=== PATIENT | male | born 1955 | race Caucasian/White ===

== ENCOUNTER 2017-03-26 14:27 | Inpatient (IN) ==
--- NOTE | 2017-03-26 14:31 | Emergency Department Note ---
Disposition Clinical Impression: Swelling of right lower extremity, Painful legs and moving toes of right foot, Arterial aneurysm Disposition: Admitted As Inpatient Condition: Fair General Adult HPI - General Chief complaint: ED Extremity Problem,Nontraumatic Stated complaint: DVT RLE Time Seen by Provider: 03/26/17 14:29 Nursing Notes Reviewed: Yes Vital Signs Reviewed: Yes - Related Data Home Medications Medication Instructions Recorded Confirmed Amlodipine Besylate 10 mg PO HS 08/15/15 03/26/17 Melatonin [Melatin] 9 mg PO HS 08/15/15 03/26/17 hydrOXYzine HCl [Hydroxyzine HCl] 50 mg PO TID PRN 08/15/15 03/26/17 Albuterol Sulfate [Albuterol 2 puff IH Q4H PRN 03/26/17 03/26/17 Inhaler] Benzocaine/Menthol [Sore Throat 1 each MM Q4H PRN 03/26/17 03/26/17 Lozenge] Bupropion HCl [Wellbutrin Xl] 300 mg PO DAILY 03/26/17 03/26/17 Cetirizine HCl [Zyrtec] 10 mg PO DAILY 03/26/17 03/26/17 EPINEPHrine [Epipen] 0.3 mg IM ONCE PRN 03/26/17 03/26/17 Enoxaparin [Lovenox] 60 mg SQ AD 03/26/17 03/26/17 Fluticasone Propionate Nasal 100 mcg NS HS 03/26/17 03/26/17 [Flonase] Loperamide [Imodium] 4 mg PO BID PRN 03/26/17 03/26/17 Methyl Salicylate/Menthol [Muscle 1 appl TP BID PRN 03/26/17 03/26/17 Rub Cream] Multivitamin [Multi-Day Vitamins] 1 tab PO DAILY 03/26/17 03/26/17 Naltrexone Microspheres [Vivitrol] 380 mg IM QMONTH 03/26/17 03/26/17 Nicotine Polacrilex [Nicotine 4 mg BC Q2H PRN 03/26/17 03/26/17 Lozenge] Pregabalin [Lyrica] 100 mg PO BID 03/26/17 03/26/17 Sildenafil Citrate [Viagra] 50 mg PO AD PRN 03/26/17 03/26/17 Allergies Allergy/AdvReac Type Severity Reaction Status Date / Time bee venom protein (honey bee) Allergy See Verified 03/26/17 16:38 Comments tramadol Allergy Hives Verified 08/15/15 00:24 Past Medical History - Past Medical History Medical history: Reports: COPD, hypertension, myocardial infarction - Social History Smoking Status: Current every day smoker Smokeless Tobacco Status: No Alcohol use: Reports: occasionally Drug use: Reports: none Course Vital Signs Temperature 98.5 F 03/26/17 15:53 Pulse Rate 78 03/26/17 15:53 Respiratory Rate 16 03/26/17 15:53 Blood Pressure 121/84 03/26/17 15:53 O2 Sat by Pulse Oximetry 90 03/26/17 15:53 Temperature 98.5 F 03/26/17 15:53 Pulse Rate 78 03/26/17 15:53 Respiratory Rate 18 03/26/17 17:17 Blood Pressure 130/81 03/26/17 17:17 O2 Sat by Pulse Oximetry 90 03/26/17 15:53 Oxygen Delivery Oxygen Delivery Room Air Medical Decision Making - MDM Narrative Medical decision making narrative: I examined this patient and my medical decision-making was reviewed with the Resident Physician. I agree with the documented findings, disposition and treatment plan as described except to the extent set forth below. Patient arrived from the [facility] by EMS, on arrival was seen by myself and Dr. Chiang, I agree with his evaluation and management plan, supravascular the patient's stay. Patient apparently was worked up there for DVT which was negative but his NORMA was significantly decreased on the right side versus the left leg thought he had arterial occlusion. He does have a long history of smoking and still smokes this point so probably does have a history of peripheral vascular disease. Relative to his chart see what workup has been done CV needs any blood work in and speak with vascular here. He denies any pain at this time. 1600 hrs.: Spoke with Dr. Chopra is on for vascular he is coming to see the patient. Labs are still pending at this point. 1615 hrs.: Surgery is seeing the patient in ER, agree with the heparin order and they ordered a CT with runoff of his lower extremity. Admit the patient to their service. Patient is in agreement with plan. - Lab Data Result diagrams: 03/26/17 15:27 03/26/17 15:27 Lab Results 03/26/17 03/26/17 03/26/17 Range/Units 15:27 15:27 15:27 WBC 8.4 (4.3-11.1) K/mcL RBC 3.98 L (4.19-5.50) M/mcL Hgb 11.9 L (12.9-16.9) g/dL Hct 34.9 L (37.5-50.1) % MCV 87.7 (83.0-100.0) fL MCH 29.9 (28.0-33.3) pg MCHC 34.1 (31.6-35.5) g/dL RDW 14.3 (11.5-14.5) % Plt Count 218 (140-400) K/mcL MPV 9.1 L (9.4-12.4) fL Immature Gran % 0.2 (0-4) % Seg Neutrophils % 67.1 % Lymphocytes % 18.1 % Monocytes % 7.5 % Eosinophils % 6.6 % Basophils % 0.5 % Neutrophils # 5.6 (1.6-8.9) K/mcL Lymphocytes # 1.5 (0.6-4.6) K/mcL Monocytes # 0.6 (0.0-1.3) K/mcL Eosinophils # 0.6 (0.0-0.6) K/mcL Basophils # 0.0 (0.0-0.2) K/mcL PT 12.1 (9.4-12.1) Seconds INR 1.1 APTT 33.2 (26.0-36.0) Seconds Sodium 129 L (136-145) mEq/L Potassium 4.4 (3.5-4.5) mEq/L Chloride 98 (98-109) mEq/L Carbon Dioxide 23 (19-29) mEq/L BUN 19 (8-26) mg/dL Creatinine 1.05 (0.72-1.25) mg/dL Est GFR ( Amer) > 60 (> 60) Est GFR (Non-Af Amer) > 60 (> 60) BUN/Creatinine Ratio 18 (6-26) Glucose 133 H (70-99) mg/dL Calculated Osmolality 272 L (280-300) Calcium 8.7 (8.6-10.8) mg/dL
[2017-03-26 15:33] LABS: Basophils % 0.5 %; Eosinophils # 0.6 K/mcL (0.0-0.6); Eosinophils % 6.6 %; Hematocrit 34.9 % (37.5-50.1); Hemoglobin 11.9 g/dL (12.9-16.9); Immature Granulocytes % 0.2 % (0-4); Lymphocytes # 1.5 K/mcL (0.6-4.6); Lymphocytes % 18.1 %; Mean Corpuscular HGB Conc 34.1 g/dL (31.6-35.5); Mean Corpuscular Hemoglobin 29.9 pg (28.0-33.3); Mean Corpuscular Volume 87.7 fL (83.0-100.0); Mean Platelet Volume 9.1 fL (9.4-12.4); Monocytes # 0.6 K/mcL (0.0-1.3); Monocytes % 7.5 %; Neutrophils # 5.6 K/mcL (1.6-8.9); Platelet Count 218 K/mcL (140-400); Red Blood Count 3.98 M/mcL (4.19-5.50); Red Cell Distribution Width 14.3 % (11.5-14.5); Segmented Neutrophils % 67.1 %
[2017-03-26] MEDS ORDERED: 0.9 % Sodium Chloride 1,000 ML IVC ONE ×2 (15:46→16:04)
[2017-03-26] MEDS ORDERED: *HR* HYDROmorphone (PF) 1 MG/ML SYRINGE IVP ONE (15:46)
[2017-03-26 15:49] LABS: INR 1.1; Prothrombin Time 12.1 Seconds (9.4-12.1)
[2017-03-26 15:52] LABS: Activated Partial Thrombo Time 33.2 Seconds (26.0-36.0)
[2017-03-26 15:56] LABS: BUN/Creatinine Ratio 18 (6-26); Blood Urea Nitrogen 19 mg/dL (8-26); Calcium 8.7 mg/dL (8.6-10.8); Carbon Dioxide 23 mEq/L (19-29); Chloride 98 mEq/L (98-109); Glucose 133 mg/dL (70-99); Osmolality,Calculated 272 (280-300); Potassium 4.4 mEq/L (3.5-4.5); Sodium 129 mEq/L (136-145); eGFR For African Americans > 60 (> 60); eGFR For Non-African Americans > 60 (> 60)
--- NOTE | 2017-03-26 15:56 | Emergency Department Note ---
Disposition Clinical Impression: Painful legs and moving toes of right foot, Arterial aneurysm, Popliteal artery occlusion, right, Abdominal aortic aneurysm dissection, Swelling of right lower extremity Disposition: Admitted As Inpatient Condition: Serious Time of Disposition: 16:21 Extremity Problem HPI - General Chief complaint: ED Extremity Problem,Nontraumatic Stated complaint: DVT RLE Time Seen by Provider: 03/26/17 14:29 Nursing Notes Reviewed: Yes Vital Signs Reviewed: Yes - History of Present Illness HPI Narrative: Patient is a 61-year-old male with no prior cardiac history no prior history for DVTs are clotting disorder presents with right lower extremity pain and swelling 3 weeks. Patient states during again progressively worse over the past 3 weeks and today his pain is 8 out of 10 worse with walking and relieved when not in pressure on it. Decreased sensation in the right foot but is able to wiggle his toes. Patient smokes one pack a day. - Related Data Home Medications Medication Instructions Recorded Confirmed Amlodipine Besylate 10 mg PO HS 08/15/15 03/26/17 Melatonin [Melatin] 9 mg PO HS 08/15/15 03/26/17 hydrOXYzine HCl [Hydroxyzine HCl] 50 mg PO TID PRN 08/15/15 03/26/17 Albuterol Sulfate [Albuterol 2 puff IH Q4H PRN 03/26/17 03/26/17 Inhaler] Benzocaine/Menthol [Sore Throat 1 each MM Q4H PRN 03/26/17 03/26/17 Lozenge] Bupropion HCl [Wellbutrin Xl] 300 mg PO DAILY 03/26/17 03/26/17 Cetirizine HCl [Zyrtec] 10 mg PO DAILY 03/26/17 03/26/17 EPINEPHrine [Epipen] 0.3 mg IM ONCE PRN 03/26/17 03/26/17 Enoxaparin [Lovenox] 60 mg SQ AD 03/26/17 03/26/17 Fluticasone Propionate Nasal 100 mcg NS HS 03/26/17 03/26/17 [Flonase] Loperamide [Imodium] 4 mg PO BID PRN 03/26/17 03/26/17 Methyl Salicylate/Menthol [Muscle 1 appl TP BID PRN 03/26/17 03/26/17 Rub Cream] Multivitamin [Multi-Day Vitamins] 1 tab PO DAILY 03/26/17 03/26/17 Naltrexone Microspheres [Vivitrol] 380 mg IM QMONTH 03/26/17 03/26/17 Nicotine Polacrilex [Nicotine 4 mg BC Q2H PRN 03/26/17 03/26/17 Lozenge] Pregabalin [Lyrica] 100 mg PO BID 03/26/17 03/26/17 Sildenafil Citrate [Viagra] 50 mg PO AD PRN 03/26/17 03/26/17 Allergies Allergy/AdvReac Type Severity Reaction Status Date / Time bee venom protein (honey bee) Allergy See Verified 03/26/17 16:38 Comments tramadol Allergy Hives Verified 08/15/15 00:24 All systems ED: reviewed and negative except as stated. Review of Systems: As Per HPI Constitutional: Denies: fever, chills, weakness Eyes: Denies: vision change ENT ED: Denies: congestion Cardiovascular: Denies: chest pain, palpitations Respiratory: Denies: cough, dyspnea Gastrointestinal: Denies: abdominal pain, nausea, vomiting, diarrhea Genitourinary: Denies: urgency, dysuria Musculoskeletal: Denies: back pain, neck pain Integumentary: Denies: rash, abrasion Neurological: Denies: headache, weakness Psychiatric: Denies: anxiety, depression Endocrine: Denies: fatigue Hematological/Lymphatic: Denies: easy bleeding Allergic/Immunologic: Denies: facial swelling Past Medical History - Past Medical History Attestation: Yes The following information was validated with the patient. Source: patient Medical history: Reports: COPD, hypertension, myocardial infarction - Social History Smoking Status: Current every day smoker Smokeless Tobacco Status: No Alcohol use: Reports: occasionally Drug use: Reports: none Physical Exam - General Limitations: no limitations General appearance: alert, in no apparent distress - Head Head exam: atraumatic, normocephalic, normal inspection - Eye Eye exam: Present: normal appearance, PERRL, EOMI - ENT ENT exam: normal exam, normal oropharynx, mucous membranes moist - Neck Neck exam: Present: normal inspection, full ROM, trachea midline - Chest Chest inspection: Present: normal inspection, symmetric chest wall rise - Respiratory Respiratory exam: Present: normal lung sounds bilaterally - Abdominal Exam Abdominal exam: Present: soft, Non-Tender. Absent: tenderness, distention, guarding, rebound, rigidity - Expanded Lower Extremity Exam Hip/Pelvis exam: Present: normal inspection, full ROM Upper leg exam: Present: normal inspection, full ROM Knee exam: Present: normal inspection, full ROM Lower leg exam: Present: normal inspection, full ROM Ankle exam: Present: normal inspection, full ROM, tenderness, swelling (Patient has pain and swelling to the right lower extremity with decrease in dorsal pedal and posterior tibial pulses when compared to the right lower extremity. Foot is cooler to palpation then the left lower extremity. Patient is able to wiggle his toes and still has sensation in the foot. Sensation slightly diminished when compared to the left. Patient also has pain posterior popliteal area) Foot/toe exam: Present: normal inspection, full ROM Neurovascular/Tendon exam: Absent: motor deficit, sensory deficit, tendon deficit Course - Reevaluation(s) Reevaluation #1: Patient was seen and examined. EKG ordered. Patient's labs and NORMA and Doppler already performed at [facility]. Time: 14:55 - Consultations Consultation #1: Dr. Chopra vascular surgeon has accepted patient to his service. He requests CT angiogram of right lower extremity with runoff and start patient on heparin. Both ordered. Time: 16:06 Vital Signs Temperature 98.5 F 03/26/17 15:53 Pulse Rate 78 03/26/17 15:53 Respiratory Rate 16 03/26/17 15:53 Blood Pressure 121/84 03/26/17 15:53 O2 Sat by Pulse Oximetry 90 03/26/17 15:53 Temperature 98.0 F 03/26/17 21:24 Pulse Rate 73 03/26/17 21:24 Respiratory Rate 16 03/26/17 21:24 Blood Pressure 117/76 03/26/17 21:24 O2 Sat by Pulse Oximetry 95 03/26/17 21:24 Oxygen Delivery Oxygen Delivery Room Air Extremity Problem, Nontraumati - MDM Narrative Medical decision making narrative: Patient's condition concern for possible arterial occlusion of the right lower extremity versus DVT. Patient has reduction pulses both dorsal pedal and posterior tibial with decrease sensation and temperature when compared to the left lower extremity. Patient has abnormal NORMA that was taken at the [facility]. Patient's venous Dopplers are negative for DVT at the [facility]. Dr. Chopra of vascular surgery was consulted and he came to see the patient. He requests patient be admitted to his service and placed on heparin as well as CT angiogram with runoff be ordered. All of which been ordered. Patient be admitted. Patient understands and agrees to treatment plan. Working to control patient's pain. Patient is under treatment for all call abuse and is on vivitrol Patient receiving 0.5 Dilaudid for pain Limited advance imagery results Aorta w/Runoff CTA 03/26/17 16:01 IMPRESSION: Short segment occlusion of the mid to distal right popliteal artery. Limited runoff visualized due to decreased flow. Primary runoff is right anterior tibial artery. Moderate stenosis with dissection and/or ulcerated plaque involving the proximal SMA. Bilateral two-vessel runoff primarily involving the anterior tibial artery. Graft Moderate renal artery stenosis with calcification, plaque bilaterally with possible stent on the right. Lumen is poorly visualized. Moderate stenosis mid left popliteal artery estimated 50-60 percent. Patient was accepted to schedule surgery by vascular surgeon. - Lab Data Lab results reviewed: Yes I reviewed the patient's lab results. Lab results narrative: Short CBC 03/26/17 Range/Units 15:27 WBC 8.4 (4.3-11.1) K/mcL Hgb 11.9 L (12.9-16.9) g/dL Hct 34.9 L (37.5-50.1) % Plt Count 218 (140-400) K/mcL Neutrophils # 5.6 (1.6-8.9) K/mcL BMP 03/26/17 Range/Units 15:27 Sodium 129 L (136-145) mEq/L Potassium 4.4 (3.5-4.5) mEq/L Chloride 98 (98-109) mEq/L Carbon Dioxide 23 (19-29) mEq/L BUN 19 (8-26) mg/dL Creatinine 1.05 (0.72-1.25) mg/dL Glucose 133 H (70-99) mg/dL Calcium 8.7 (8.6-10.8) mg/dL Result diagrams: 03/26/17 15:27 03/26/17 15:27 Lab Results 03/26/17 03/26/17 03/26/17 Range/Units 15:27 15:27 15:27 WBC 8.4 (4.3-11.1) K/mcL RBC 3.98 L (4.19-5.50) M/mcL Hgb 11.9 L (12.9-16.9) g/dL Hct 34.9 L (37.5-50.1) % MCV 87.7 (83.0-100.0) fL MCH 29.9 (28.0-33.3) pg MCHC 34.1 (31.6-35.5) g/dL RDW 14.3 (11.5-14.5) % Plt Count 218 (140-400) K/mcL MPV 9.1 L (9.4-12.4) fL Immature Gran % 0.2 (0-4) % Seg Neutrophils % 67.1 % Lymphocytes % 18.1 % Monocytes % 7.5 % Eosinophils % 6.6 % Basophils % 0.5 % Neutrophils # 5.6 (1.6-8.9) K/mcL Lymphocytes # 1.5 (0.6-4.6) K/mcL Monocytes # 0.6 (0.0-1.3) K/mcL Eosinophils # 0.6 (0.0-0.6) K/mcL Basophils # 0.0 (0.0-0.2) K/mcL PT 12.1 (9.4-12.1) Seconds INR 1.1 APTT 33.2 (26.0-36.0) Seconds Sodium 129 L (136-145) mEq/L Potassium 4.4 (3.5-4.5) mEq/L Chloride 98 (98-109) mEq/L Carbon Dioxide 23 (19-29) mEq/L BUN 19 (8-26) mg/dL Creatinine 1.05 (0.72-1.25) mg/dL Est GFR ( Amer) > 60 (> 60) Est GFR (Non-Af Amer) > 60 (> 60) BUN/Creatinine Ratio 18 (6-26) Glucose 133 H (70-99) mg/dL Calculated Osmolality 272 L (280-300) Calcium 8.7 (8.6-10.8) mg/dL - Radiology Data Radiology results reviewed: Yes I reviewed the patient's radiology results. Aorta w/Runoff CTA 03/26/17 16:01 IMPRESSION: Short segment occlusion of the mid to distal right popliteal artery. Limited runoff visualized due to decreased flow. Primary runoff is right anterior tibial artery. Moderate stenosis with dissection and/or ulcerated plaque involving the proximal SMA. Bilateral two-vessel runoff primarily involving the anterior tibial artery. Graft Moderate renal artery stenosis with calcification, plaque bilaterally with possible stent on the right. Lumen is poorly visualized. Moderate stenosis mid left popliteal artery estimated 50-60 percent. D/ / Rafael Burton MD / Rafael Burton MD Interpreting Provider: Rafael Burton MD - EKG Data EKG attestation: Yes I reviewed and interpreted this EKG. EKG results narrative: EKG taken 03/26/2017 at 1658 hrs. shows a sinus rhythm with no acute ST elevations or depressions any leads, no QRS widening or QT prolongation.
[2017-03-26] MEDS ORDERED: *HR* Heparin 5,000 UNIT/ML VIAL IVP ONE ×2 (16:03→16:31)
[2017-03-26] MEDS ORDERED: *HR* Heparin 5,000 UNIT/ML VIAL IVP PRN ×4 (16:03→16:31)
[2017-03-26] MEDS ORDERED: Heparin 25,000 UNIT/500 ML D5W 25,000 UNIT/500 ML MLS IVC SCH ×2 (16:15→16:45)
--- NOTE | 2017-03-26 16:25 | Vascular/Endovascular H&P ---
Date of Encounter: 03/26/17 Time of Encounter: 16:10 Assessment and Plan (1) Atherosclerotic peripheral vascular disease with rest pain Status: Chronic The pathophysiology and natural history of peripheral vascular disease was discussed with the patient and all questions were answered. The patient reports progressive right lower extremity claudication and now has rest pain. He denies ulcers or gangrene. His right NORMA is consistent with severe disease. His right foot is warm with sensation and motor function. His compartments are soft. He will be admitted and started on intravenous heparin. He will undergo a CT angiogram. He will likely require revascularization during this admission. (2) Essential hypertension Status: Chronic He was counseled regarding atherosclerotic risk factor reduction. (3) Tobacco abuse Status: Chronic He was counseled regarding smoking cessation. (4) Chronic anemia Status: Acute History of Present Illness Chief complaint: Right leg pain HPI: Mr. Arce is a 61 year old male with a history of hypertension and tobacco abuse. He report that during the last several months he has developed progressive right lower extremity pain and swelling. He states that during the last few weeks his symptoms became worse. He states that he has pain in his calf with ambulation at any distance. He denies ulcers or gangrene. He was seen at the [facility] and was found to have abnormal vascular labs. He was then sent to [facility] [place] for further evaluation. He denies any chest pain or shortness of breath. Past Med Surg Social Fam HX - Past Medical History Medical history: COPD, hypertension, myocardial infarction Psychiatric history: no psych history - Social History Smoking Status: Current every day smoker Smokeless Tobacco Status: No Alcohol use: occasionally Drug use: none Medications and Allergies Amlodipine Besylate 10 mg PO HS 08/15/15 [History] Melatonin [Melatin] 9 mg PO HS 08/15/15 [History] hydrOXYzine HCl [Hydroxyzine HCl] 50 mg PO TID PRN 08/15/15 [History] Albuterol Sulfate [Albuterol Inhaler] 2 puff IH Q4H PRN 03/26/17 [History] Benzocaine/Menthol [Sore Throat Lozenge] 1 each MM Q4H PRN 03/26/17 [History] Bupropion HCl [Wellbutrin Xl] 300 mg PO DAILY 03/26/17 [History] Cetirizine HCl [Zyrtec] 10 mg PO DAILY 03/26/17 [History] EPINEPHrine [Epipen] 0.3 mg IM ONCE PRN 03/26/17 [History] Fluticasone Propionate Nasal [Flonase] 100 mcg NS HS 03/26/17 [History] Loperamide [Imodium] 4 mg PO BID PRN 03/26/17 [History] Methyl Salicylate/Menthol [Muscle Rub Cream] 1 appl TP BID PRN 03/26/17 [History ] Multivitamin [Multi-Day Vitamins] 1 tab PO DAILY 03/26/17 [History] Naltrexone Microspheres [Vivitrol] 380 mg IM QMONTH 03/26/17 [History] Nicotine Polacrilex [Nicotine Lozenge] 4 mg BC Q2H PRN 03/26/17 [History] Pregabalin [Lyrica] 100 mg PO BID 03/26/17 [History] Sildenafil Citrate [Viagra] 50 mg PO AD PRN 03/26/17 [History] Albuterol Sulfate [Albuterol Inhaler] 2 puff IH [id number] 03/28/17 [Rx] Aspirin Enteric Coated [Aspirin EC] 81 mg PO DAILY #90 tablet. 03/28/17 [Rx] Clopidogrel Bisulfate [Plavix] 75 mg PO DAILY #30 tablet 03/28/17 [Rx] Loratadine [Claritin] 10 mg PO DAILY tab 03/28/17 [Rx] Oxycodone HCl/Acetaminophen [Percocet 5-325 mg Tablet] 1 each PO Q4H PRN #40 tablet 03/28/17 [Rx] 3 Allergy/AdvReac Type Severity Reaction Status Date / Time bee venom protein (honey bee) Allergy See Verified 03/26/17 16:38 Comments tramadol Allergy Hives Verified 08/15/15 00:24 All Systems Review: A 10-system review of systems was performed and is negative for pertinent findings except as documented above in the HPI. - Constitutional Constitutional: no chills, no fever(s) - Cardiovascular Cardiovascular: no chest pain at rest, no chest pain with exertion, no dyspnea at rest, no dyspnea on exertion, no palpitations Exam Vital Signs, Last 4 Hours Temp Pulse Resp BP Pulse Ox 03/26/17 15:53 98.5 F 78 16 121/84 90 General: Present: Conversant, No Apparent Distress HEENT: Present: Atraumatic, Normocephaly, Pupils equal Neck: Absent: JVD, Lymphadenopathy, Left Carotid bruit, Right Carotid bruit Cardiac: Present: Reg Rate and Rhythm, Normal S1 and S2, No Murmur Lungs: Present: Normal Breath Sounds, No Wheeze, Rales, Rhonchi Neuro: Present: Alert and responsive, Motor nerves grossly intact, Sensory nerves grossly intact Abdomen: Present: Soft, Non-tender. Absent: Masses Vascular: Present: Normal capillary refill, Pulse, absent (Right pedals), Pulse , normal (Left lower extremity). Absent: Edema Skin: Present: No rashes noted on visualized skin Results 03/28/17 05:46 03/28/17 05:46 Lab Results, Last 24 hours 03/26/17 03/26/17 03/26/17 15:27 15:27 15:27 WBC 8.4 Hgb 11.9 L Hct 34.9 L Plt Count 218 INR 1.1 APTT 33.2 Sodium 129 L Potassium 4.4 Chloride 98 Carbon Dioxide 23 BUN 19 Creatinine 1.05 Glucose 133 H Calcium 8.7 - Imaging / Other Tests Non Invasive Vascular Testing: report reviewed, image reviewed ([facility], No DVT, RABI 0.18)
[2017-03-26] MEDS ORDERED: Acetaminophen 325 MG TABLET PO PRN (16:32)
[2017-03-26] MEDS ORDERED: Ondansetron 4 MG/2 ML VIAL IVP PRN (16:32)
[2017-03-26] MEDS ORDERED: *HR* Morphine 2 MG/ML SYRINGE IVP PRN (16:32)
[2017-03-26] MEDS ORDERED: *HR* Labetalol 20 MG/4 ML SYRINGE IVP PRN (16:32)
[2017-03-26] MEDS ORDERED: *HR* HYDROcodone/Acet 5/325 mg TABLET PO PRN (16:32)
[2017-03-26] MEDS ORDERED: Naloxone 0.4 MG/ML INJ IVP PRN (16:32)
[2017-03-26] MEDS ORDERED: *HR* OxyCODONE Immed Rel 5 MG TABLET PO PRN (16:32)
[2017-03-26] MEDS: 0.9 % Sodium Chloride 1,000 ML IVC SCH ×2 (18:00→20:08)
[2017-03-26] MEDS: *HR* Metoprolol 5 MG/5 ML VIAL IVP SCH (18:51)
[2017-03-27] MEDS: *HR* Metoprolol 5 MG/5 ML VIAL IVP SCH ×3 (04:28→11:53)
[2017-03-27 04:31] LABS: Basophils # 0.1 K/mcL (0.0-0.2); Basophils % 0.6 %; Eosinophils # 0.6 K/mcL (0.0-0.6); Eosinophils % 6.6 %; Hematocrit 34.4 % (37.5-50.1); Hemoglobin 11.8 g/dL (12.9-16.9); Immature Granulocytes % 0.6 % (0-4); Immature Platelets 2.1 % (1.1-6.1); Lymphocytes # 1.8 K/mcL (0.6-4.6); Lymphocytes % 20.9 %; Mean Corpuscular HGB Conc 34.3 g/dL (31.6-35.5); Mean Corpuscular Volume 87.5 fL (83.0-100.0); Mean Platelet Volume 8.9 fL (9.4-12.4); Monocytes # 0.7 K/mcL (0.0-1.3); Monocytes % 8.5 %; Neutrophils # 5.4 K/mcL (1.6-8.9); Platelet Count 240 K/mcL (140-400); Red Blood Count 3.93 M/mcL (4.19-5.50); Red Cell Distribution Width 14.3 % (11.5-14.5); Segmented Neutrophils % 62.8 %
[2017-03-27 04:43] LABS: BUN/Creatinine Ratio 19 (6-26); Blood Urea Nitrogen 15 mg/dL (8-26); Carbon Dioxide 23 mEq/L (19-29); Chloride 105 mEq/L (98-109); Glucose 110 mg/dL (70-99); Osmolality,Calculated 279 (280-300); Potassium 4.7 mEq/L (3.5-4.5); Sodium 134 mEq/L (136-145); eGFR For African Americans > 60 (> 60); eGFR For Non-African Americans > 60 (> 60)
[2017-03-27] MEDS: 0.9 % Sodium Chloride 1,000 ML IVC SCH (11:53)
--- NOTE | 2017-03-27 15:24 | Electrocardiograph Report ---
[address] [address] Test Date: 2017-03-26 Pat Name: Nahum Arce Department: 0 Room: 2N15 Gender: M Remodeler: Tmcarola : 1955 Requested By: Huan Hill Order Number: [id number] Reading MD: Curtis Benites MD Measurements Intervals [place] Rate: 76 P: 54 MN: 139 QRS: 7 QRSD: 83 T: 61 QT: 394 QTc: 424 Interpretive Statements SINUS RHYTHM Electronically Signed On 03-27-2017 15:22:48 EDT by Curtis Benites MD
--- NOTE | 2017-03-27 15:46 | Anesthesia Evaluation PreOp ---
Date of Encounter: 03/27/17 Time of Encounter: 15:35 - Past History Planned Operation: Right [place] extremity Thrombectomy Cardiac History: HTN Pulmonary History: Smoker Other Medical History: Denies Any Significant HX Anesthesia History: No Prior Anesthetic Complications, Past Anesthesia (Back Sx) Alcohol Use: occasionally Drug use: none Medications and Allergies Amlodipine Besylate 10 mg PO HS 08/15/15 [History] Melatonin [Melatin] 9 mg PO HS 08/15/15 [History] hydrOXYzine HCl [Hydroxyzine HCl] 50 mg PO TID PRN 08/15/15 [History] Albuterol Sulfate [Albuterol Inhaler] 2 puff IH Q4H PRN 03/26/17 [History] Benzocaine/Menthol [Sore Throat Lozenge] 1 each MM Q4H PRN 03/26/17 [History] Bupropion HCl [Wellbutrin Xl] 300 mg PO DAILY 03/26/17 [History] Cetirizine HCl [Zyrtec] 10 mg PO DAILY 03/26/17 [History] EPINEPHrine [Epipen] 0.3 mg IM ONCE PRN 03/26/17 [History] Enoxaparin [Lovenox] 60 mg SQ AD 03/26/17 [History] Fluticasone Propionate Nasal [Flonase] 100 mcg NS HS 03/26/17 [History] Loperamide [Imodium] 4 mg PO BID PRN 03/26/17 [History] Methyl Salicylate/Menthol [Muscle Rub Cream] 1 appl TP BID PRN 03/26/17 [History ] Multivitamin [Multi-Day Vitamins] 1 tab PO DAILY 03/26/17 [History] Naltrexone Microspheres [Vivitrol] 380 mg IM QMONTH 03/26/17 [History] Nicotine Polacrilex [Nicotine Lozenge] 4 mg BC Q2H PRN 03/26/17 [History] Pregabalin [Lyrica] 100 mg PO BID 03/26/17 [History] Sildenafil Citrate [Viagra] 50 mg PO AD PRN 03/26/17 [History] 3 Allergy/AdvReac Type Severity Reaction Status Date / Time bee venom protein (honey bee) Allergy See Verified 03/26/17 16:38 Comments tramadol Allergy Hives Verified 08/15/15 00:24 - Meds/Allergy Pre-op Review Medications Reviewed: Yes Allergies Reviewed: Yes Beta Blockers on Current Med List: Yes If Beta Blockers taken, Date/Time (Last Dose taken): 11:53 03/27/17 Anesthesia Results - Labs 03/27/17 04:21 03/27/17 04:21 - Imaging EKG: image reviewed (SR) Anesthesia Exam O2 Sat Height 1.73 m Weight 67.7 kg Weight 67.7 kg Weight 69.4 kg O2 Sat by Pulse Oximetry 96 O2 Sat by Pulse Oximetry 97 O2 Sat by Pulse Oximetry 97 O2 Sat by Pulse Oximetry 94 O2 Sat by Pulse Oximetry 96 O2 Sat by Pulse Oximetry 96 O2 Sat by Pulse Oximetry 94 O2 Sat by Pulse Oximetry 95 O2 Sat by Pulse Oximetry 94 O2 Sat by Pulse Oximetry 90 Vital Signs Temp Pulse Resp BP Pulse Ox 98.5 F 78 16 121/84 90 03/26/17 15:53 03/26/17 15:53 03/26/17 15:53 03/26/17 15:53 03/26/17 15:53 Vital Signs/O2 Sat, Most Current Temp Pulse Resp BP Pulse Ox 97.8 F 68 18 128/62 96 03/27/17 11:15 03/27/17 11:15 03/27/17 11:15 03/27/17 11:15 03/27/17 11:15 Height: 5'8'' Weight: 149# NPO (# of Hours): > 8 hrs Pain Scale: 0 Pain Scale Used: Numeric (1 - 10) - HEENT Pupil (Motor): Pupils equal, EOMI Mallampati: II Teeth: Edentulous Denture Type: Upper: Complete, Lower: Complete Oral Opening: Greater than 3 - 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
[2017-03-27] MEDS ORDERED: CeFAZolin Pre 2,000 MG/100 ML 2,000 MG/100 ML BAG IVPB ONE ×2 (16:02→17:00)
[2017-03-27] MEDS ORDERED: Vancomycin 1,000 MG in D5% in Water 250 ML IVPB ONE (16:03)
[2017-03-27] MEDS ORDERED: Vancomycin 1,000 MG VIAL ONE (16:11)
[2017-03-27] MEDS ORDERED: Heparin 1,000 UNITS/500 mL NS 1,000 ML ONE (16:11)
[2017-03-27] MEDS ORDERED: *HR* Propofol 200 MG/20 ML VIAL IVP ONE ×2 (16:40→17:23)
[2017-03-27] MEDS ORDERED: Lidocaine -MPF 2% 2 ML VIAL ONE (16:40)
[2017-03-27] MEDS ORDERED: *HR* FentaNYL (PF) 100 MCG/2 ML VIAL ONE (16:40)
[2017-03-27] MEDS ORDERED: *HR* HYDROmorphone 2 MG/ML SYRINGE ONE ×3 (17:20→19:39)
[2017-03-27] MEDS ORDERED: EPHEDrine 50 MG/ML VIAL ONE (17:32)
[2017-03-27] MEDS ORDERED: Ondansetron 4 MG/2 ML VIAL ONE (17:40)
[2017-03-27] MEDS ORDERED: Dexamethasone 4 MG/ML VIAL ONE (17:40)
[2017-03-27] MEDS ORDERED: *HR* HYDROmorphone (PF) 1 MG/ML SYRINGE IVP PRN ×2 (17:49→19:56)
[2017-03-27] MEDS ORDERED: *HR* Labetalol 20 MG/4 ML SYRINGE IVP PRN ×2 (17:49→19:56)
[2017-03-27] MEDS ORDERED: *HR* Meperidine 25 MG/ML SYRINGE IVP PRN (17:49)
[2017-03-27] MEDS ORDERED: *HR* Heparin 5,000 UNIT/ML VIAL ONE (18:40)
[2017-03-27] MEDS ORDERED: *HR* Magnesium Sulfate 1 GM/2 ML VIAL ONE (19:45)
[2017-03-27] MEDS ORDERED: Acetaminophen IV 1,000 MG/100 ML INFUS..BTL ONE (19:52)
[2017-03-27] MEDS ORDERED: *HR* Promethazine 25 MG/ML VIAL IVP PRN (19:56)
--- NOTE | 2017-03-27 20:19 | Operative Note ---
Date of procedure: 03/27/17 Pre-op diagnosis: Peripheral vascular disease with rest pain Post-op diagnosis: same Procedure: 1. Right popliteal and tibial thrombectomy with 4 cape verdean kaitlynn embolectomy catheter. 2. Right popliteal and tibial endarterectomy with bovine pericardial patch angioplasty. Complications: None Anesthesia: GETA Surgeon: Vance Chopra Estimated blood loss (cc): 100 Specimen: Right lower extremity thrombus and plaque Condition: stable Disposition: PACU Procedure in Detail: Indications: The patient is a 61 year old male who presented to [facility] ER with complaints of acute on chronic right lower extremity ischemia. He was found to have a popliteal and tibial artery occlusion. The patient also has a history of peripheral vascular disease. He reported disabling right lower extremity claudication. He was admitted and started on a heparin drip. Revascularization was recommended for symptomatic relief and to reduce his risk of limb loss. Procedure: The patient was identified in the preoperative area. The risks, benefits, and alternatives of procedure were discussed and all questions were answered. He was taken to the operating room and placed in supine position on the operating room table. After the induction of general endotracheal anesthesia, he was cleaned and draped in normal sterile fashion. A longitudinal incision was made along the right calf. Hemostasis was obtained with electrocautery. Through a process of blunt and sharp electrocautery dissection, the skin and subcutaneous tissues were incised and the below knee popliteal, anterior tibial, tibioperoneal trunk and posterior tibial arteries were dissected circumferentially and surrounded with vessel loops. The required ligation and division of the anterior tibial vein with 2-0 silk suture and a 6-0 prolene suture. The vessels were noted to be firm and heaviliy calcified. A doppler revealed no signal throughout the exposed vessels. The patient received 5000 units of heparin intravenously and additional heparin throughout the case to maintain adequate anticoagulation. The vessels were occluded. A longitudinal arteriotomy was made sharply into the popliteal artery. It was extended distally into the tibioperoneal trunk. Significant thrombus was encounterd along with heavily calcified nearly occlusive plaque. A 4 cape verdean kaitlynn embolectomy catheter was passed proximally and inflated. Significant organized thrombus was retrieved and pulsatile antegrade flow was apparent. Additional proximal passes did not reveal any additional thrombus. The catheter was then passed distally and additional thrombus was retrieved after the first pass. Retrograde flow was then noted. Additional distal passes did not reveal any additional thrombus. The vessels were flushed with heparinzed saline and occluded. Using a dental freer, an endarterectomy was performed from the popliteal artery through the tibioperoneal trunk artery. The plaque was irregular and heavily calficied. The plaque was excised sharply and no elevated flaps were noted at the endpoint. Distally, the plaque was excised at the deep femoral artery. The lumen was irrigated with heparinzed saline. A bovine pericardial patch was cut to fit the arterial defect. The patch was sutured in place with running 6-0 Prolene. Prior to completing the patch anastomosis, each vessel was flushed individually, then reoccluded. Heparinized saline was infused into the lumen. The patch was completed and flow was restored. Thrombin and Gelfoam were used to aid in hemostasis. Polyphasic signal was noted distal to the distal end of the patch as well as the posterior tibial artery. Wound was irrigated with antibiotic-containing saline. Platelet-rich and platelet-poor plasma were infused into the wound. The wounds were reapproximated with layer of 2-0 Vicryl followed by two layers of 3-0 and Vicryl 3-0 Monocryl in the subcuticular layer. Sterile dressings were applied. The patient was extubated and taken to recovery room in stable condition.
--- NOTE | 2017-03-27 21:20 | Anesthesia Evaluation Post Op ---
Date of Encounter: 03/27/17 Time of Encounter: 21:18 - Vital Signs Vital Signs: Vital Signs/O2 Sat/Glucose, Most Current Temp Pulse Resp BP Pulse Ox 03/27/17 20:55 97.7 F 82 14 104/75 98 03/27/17 20:45 97.7 F 85 14 113/77 100 03/27/17 20:35 80 14 107/71 95 03/27/17 20:25 85 16 104/76 96 03/27/17 20:15 97.6 F 91 20 112/78 100 - Lungs Lungs: Clear Ascult./Percussion - Airway Airway: Non-obstructed - Cardiovascular Baseline Rhythm - Mental Status Mental Status: Alert & Oriented, Answers Appropriately - Pain Pain Scale: 0 Pain Scale used: Numeric (1 - 10) - Nausea Vomiting Nausea Vomiting: Not Present - Hydration Hydration: Ice chips, Urbano catheter - Discharge PostOp Status: Transfer Patient to floor Anes Supervising Prov Stmt: Pt seen/evaluated, VSS and pt has met criteria for discharge to floor. - MD Anna
[2017-03-28] MEDS: *HR* Metoprolol 5 MG/5 ML VIAL IVP SCH ×4 (00:29→12:29)
[2017-03-28] MEDS ORDERED: 0.9 % Sodium Chloride 1,000 ML IVC SCH (02:22)
[2017-03-28] MEDS ORDERED: Naloxone 0.4 MG/ML INJ IVP PRN (02:22)
[2017-03-28] MEDS ORDERED: *HR* Heparin 5,000 UNIT/ML VIAL IVP PRN ×2 (02:22)
[2017-03-28] MEDS ORDERED: Fluticasone Propionate Nasal 50 MCG/SPRAY BOTTLE NS SCH (02:22)
[2017-03-28] MEDS ORDERED: Acetaminophen 325 MG TABLET PO PRN (02:22)
[2017-03-28] MEDS ORDERED: *HR* Labetalol 20 MG/4 ML SYRINGE IVP PRN (02:22)
[2017-03-28] MEDS ORDERED: *HR* HYDROcodone/Acet 5/325 mg TABLET PO PRN (02:22)
[2017-03-28] MEDS ORDERED: Ondansetron 4 MG/2 ML VIAL IVP PRN (02:22)
[2017-03-28] MEDS ORDERED: Heparin 25,000 UNIT/500 ML D5W 25,000 UNIT/500 ML MLS IVC SCH (02:22)
[2017-03-28] MEDS ORDERED: hydrOXYzine pamoate 25 MG CAPSULE PO PRN (02:22)
[2017-03-28] MEDS ORDERED: *HR* Morphine 2 MG/ML SYRINGE IVP PRN (02:22)
[2017-03-28] MEDS ORDERED: amLODIPine 5 MG TABLET PO SCH (02:22)
[2017-03-28] MEDS ORDERED: *HR* OxyCODONE Immed Rel 5 MG TABLET PO PRN (02:22)
[2017-03-28 06:14] LABS: Basophils % 0.1 %; Hematocrit 32.5 % (37.5-50.1); Hemoglobin 11.1 g/dL (12.9-16.9); Immature Granulocytes % 0.7 % (0-4); Immature Platelets 3.2 % (1.1-6.1); Lymphocytes # 0.8 K/mcL (0.6-4.6); Lymphocytes % 8.7 %; Mean Corpuscular HGB Conc 34.2 g/dL (31.6-35.5); Mean Corpuscular Hemoglobin 30.4 pg (28.0-33.3); Mean Platelet Volume 9.6 fL (9.4-12.4); Monocytes # 0.4 K/mcL (0.0-1.3); Monocytes % 4.3 %; Neutrophils # 8.2 K/mcL (1.6-8.9); Platelet Count 234 K/mcL (140-400); Red Blood Count 3.65 M/mcL (4.19-5.50); Red Cell Distribution Width 14.1 % (11.5-14.5); Segmented Neutrophils % 86.2 %
[2017-03-28 06:25] LABS: BUN/Creatinine Ratio 18 (6-26); Blood Urea Nitrogen 15 mg/dL (8-26); Calcium 8.9 mg/dL (8.6-10.8); Carbon Dioxide 20 mEq/L (19-29); Chloride 103 mEq/L (98-109); Glucose 140 mg/dL (70-99); Osmolality,Calculated 281 (280-300); Sodium 134 mEq/L (136-145); eGFR For African Americans > 60 (> 60); eGFR For Non-African Americans > 60 (> 60)
[2017-03-28 06:29] LABS: Potassium 4.6 mEq/L (3.5-4.5)
--- NOTE | 2017-03-28 07:41 | Discharge Summary ---
Date of Encounter: 03/28/17 Time of Encounter: 08:05 - Discharge Diagnosis (1) Atherosclerotic peripheral vascular disease with rest pain Priority: Primary Status: Chronic Comments: The patient is postoperative day #1 after a right popliteal and tibial endarterectomy with thrombectomy. His compartments are soft. His pedal signals are polyphasic. His wound is healing. He will be discharged today. He will take ASA and Plavix daily. (2) Essential hypertension Priority: Secondary Status: Chronic Comments: He was counseled regarding atherosclerotic risk factor reduction. (3) Tobacco abuse Priority: Secondary Status: Chronic (4) Chronic anemia Priority: Secondary Status: Acute Comments: The patient is hemodynamically stable without evidence of ongoing blood loss. - Discharge Medications Prescriptions: Aspirin Enteric Coated [Aspirin EC] 81 mg PO DAILY #90 tablet. Clopidogrel Bisulfate [Plavix] 75 mg PO DAILY #30 tablet Oxycodone HCl/Acetaminophen [Percocet 5-325 mg Tablet] 1 each PO Q4H PRN #40 tablet PRN Reason: POSTOPERATIVE PAIN Home Medications: Amlodipine Besylate 10 mg PO HS 08/15/15 [History] Melatonin [Melatin] 9 mg PO HS 08/15/15 [History] hydrOXYzine HCl [Hydroxyzine HCl] 50 mg PO TID PRN 08/15/15 [History] Albuterol Sulfate [Albuterol Inhaler] 2 puff IH Q4H PRN 03/26/17 [History] Benzocaine/Menthol [Sore Throat Lozenge] 1 each MM Q4H PRN 03/26/17 [History] Bupropion HCl [Wellbutrin Xl] 300 mg PO DAILY 03/26/17 [History] Cetirizine HCl [Zyrtec] 10 mg PO DAILY 03/26/17 [History] EPINEPHrine [Epipen] 0.3 mg IM ONCE PRN 03/26/17 [History] Fluticasone Propionate Nasal [Flonase] 100 mcg NS HS 03/26/17 [History] Loperamide [Imodium] 4 mg PO BID PRN 03/26/17 [History] Methyl Salicylate/Menthol [Muscle Rub Cream] 1 appl TP BID PRN 03/26/17 [History ] Multivitamin [Multi-Day Vitamins] 1 tab PO DAILY 03/26/17 [History] Naltrexone Microspheres [Vivitrol] 380 mg IM QMONTH 03/26/17 [History] Nicotine Polacrilex [Nicotine Lozenge] 4 mg BC Q2H PRN 03/26/17 [History] Pregabalin [Lyrica] 100 mg PO BID 03/26/17 [History] Sildenafil Citrate [Viagra] 50 mg PO AD PRN 03/26/17 [History] Albuterol Sulfate [Albuterol Inhaler] 2 puff IH [id number] 03/28/17 [Rx] Aspirin Enteric Coated [Aspirin EC] 81 mg PO DAILY #90 tablet. 03/28/17 [Rx] Clopidogrel Bisulfate [Plavix] 75 mg PO DAILY #30 tablet 03/28/17 [Rx] Loratadine [Claritin] 10 mg PO DAILY tab 03/28/17 [Rx] Oxycodone HCl/Acetaminophen [Percocet 5-325 mg Tablet] 1 each PO Q4H PRN #40 tablet 03/28/17 [Rx] Allergies/Adverse Reactions: 3 Allergy/AdvReac Type Severity Reaction Status Date / Time bee venom protein (honey bee) Allergy See Verified 03/26/17 16:38 Comments tramadol Allergy Hives Verified 08/15/15 00:24 Date of admission: 03/26/17 16:27 Primary care physician: PCP [place] Procedure(s) Performed: Right popliteal and tibial thrombectomy and endarterectomy. Discharging clinician: Vance Chopra Anticipated date of discharge: 03/28/17 - Patient Status Disposition: Home, Self-Care Condition: Good Functional capacity at discharge: independent ambulation Overall status at discharge: patient is progressing back to baseline - Discharge Instructions Instructions: Oxycodone/Acetaminophen (By mouth), Aspirin (By mouth), Clopidogrel (By mouth), Peripheral Vascular Disorders (DC) Follow Up With: Vance Chopra MD [Partnered Physician] - 04/28/17 2:40 pm () [place],PCP [Primary Care Provider] - 04/03/17 12:30 pm (THIS IS WITH DR. MA AT THE DISCHARGE CLINIC) Additional Instructions: MAY REMOVE BANDAGE AND SHOWER ON 03/29/17. WASH WOUND GENTLY AND PAT TO DRY. APPLY DRY GAUZE TO WOUND DAILY FOR 7 DAYS. NO TUB BATHS OR SWIMMING UNTIL 04/24/17. CALL DR CHOPRA AT [phone] WITH QUESTIONS OR CONCERNS. LOW FAT, LOW CHOLESTEROL DIET. ADVANCE ACTIVITY TOLERATED - Diet and Activity Activity: increase activity as tolerated Diet: low fat, low cholesterol - Hospital Course Hospital course: Mr. Arce is a 61 year old male who presented to the ER on 03/26/17 with acute on chronic right lower extremity ischemia of several weeks duration. He was admitted and started on intravenous heparin. His CTA revealed a popliteal and tibial artery occlusion. He underwent thrombectomy and endarterectomy on . On postoperative day #1 he was feeling better. He has polyphasic signals and his wound was healing. He was discharged on postoperative day #1 in stable condition without complications. Time spent discussing smoking cessation with patient: 3 to 10 minutes - Time Spent with Patient Total time spent providing and/or coordinating discharge services: Exam Vital Signs, Last 4 Hours Resp Pulse Ox 03/28/17 04:20 16 100 General: Present: Conversant, No Apparent Distress HEENT: Present: Pupils equal Cardiac: Present: Reg Rate and Rhythm Neuro: Present: Alert and responsive, No focal deficits noted, Motor nerves grossly intact, Sensory nerves grossly intact Abdomen: Present: Soft Vascular: Present: Pulse, normal, Surgical incisions (incision clean dry and intact without erythema or drainage) Skin: Present: No rashes noted on visualized skin Musculoskeletal: Present: Other (Compartments soft) - VTE Documentation of Mechanical Device: Graduated compression elastic hosiery
[2017-03-28] MEDS ORDERED: Loratadine 10 MG TABLET PO SCH (09:00)
[2017-03-28] MEDS ORDERED: Nicotine 21 MG PATCH.TD24 TD SCH (09:00)
[2017-03-28] MEDS ORDERED: Multivit/Ca/Min/Fe/FA 1 TAB TABLET PO SCH (09:00)
[2017-03-28] MEDS ORDERED: BuPROPion XL (24 HR) 150 MG TABLET PO SCH (09:00)
[2017-03-28 11:46] VITALS: BP 135/73
== END 2017-03-28 15:41 | disposition home or self-care (01) | DRG 253 ==
LOC: EMEROO 14:27 → 2NNU 16:27
PROVIDERS: ADMIT Surgery; ATTEND Surgery

== ENCOUNTER 2019-01-23 10:24 | Inpatient (IN) ==
[2019-01-23] MEDS ORDERED: Ondansetron 4 MG/2 ML VIAL IVP ONE ×2 (10:30→17:02)
--- NOTE | 2019-01-23 10:36 | Emergency Department Note ---
Disposition Clinical Impression: Pancreatitis Qualifiers: Chronicity: acute Pancreatitis type: unspecified pancreatitis type Acute pancreatitis complication: unspecified Qualified Code(s): K85.90 - Acute pancreatitis without necrosis or infection, unspecified Disposition: Admitted As Inpatient Condition: Good [facility] Care Provider[facility] - Time of Disposition: 15:07 Abdominal Pain HPI - General Stated Complaint: abdominal pain Time Seen by Provider: 01/23/19 10:29 Source: patient, EMS Mode of arrival: EMS Limitations: no limitations Nursing Notes Reviewed: Yes Vital Signs Reviewed: Yes - History of Present Illness HPI Narrative: 63-year-old male presents emergency department via EMS as a transfer from [facility] for abdominal pain. States earlier this morning around 2 AM approximately 9 hours prior to evaluation he woke up having some abdominal discomfort. States it is all over. Nothing makes it better or worse. He is very nauseated and burping but does not vomited. He recently had surgery to his hand yesterday with no reported complications. Anesthesia was used in states since then he has not had any bowel movements or flatus. He does use oxycodone and most recent use a few hours ago. Denies any fevers. Denies injuries or trauma to the area. Denies any urinary symptoms. No prior history of abdominal surgeries. Pt Subjective Complaint: abdominal pain - Related Data Home Medications Medication Instructions Recorded Confirmed Melatonin [Melatin] 5 mg PO HS PRN 08/15/15 01/23/19 hydrOXYzine HCl [Hydroxyzine HCl] 50 mg PO TID PRN 08/15/15 01/23/19 EPINEPHrine [Epipen] 0.3 mg IM ONCE PRN 03/26/17 01/23/19 Pregabalin [Lyrica] 300 mg PO DAILY 03/26/17 01/23/19 Sildenafil Citrate [Viagra] 100 mg PO DAILY PRN 03/26/17 01/23/19 Albuterol Sulfate [Albuterol 2 puff IH [id number] PRN 01/22/19 01/23/19 Inhaler] Amlodipine Besylate 10 mg PO DAILY 01/22/19 01/23/19 Atorvastatin Calcium [Lipitor] 20 mg PO DAILY 01/22/19 01/23/19 Calcium Carbonate [Calcium] 600 mg PO DAILY 01/22/19 01/23/19 Cholecalciferol (D-3) [Vitamin D] 1,000 unit PO DAILY 01/22/19 01/23/19 Cyclobenzaprine HCl 5 mg PO TID 01/22/19 01/23/19 Docusate Sodium [Stool Softener] 50 mg PO DAILY 01/22/19 01/23/19 Lidocaine [Aspercreme] 1 each TP Q12H PRN 01/22/19 01/23/19 Lisinopril [Zestril] 40 mg PO DAILY 01/22/19 01/23/19 Magnesium Oxide [Magnesium] 400 mg PO BID 01/22/19 01/23/19 Methocarbamol [Robaxin] 750 mg PO Q4H 01/22/19 01/23/19 Terazosin HCl 2 mg PO DAILY 01/22/19 01/23/19 Tiotropium Br/Olodaterol HCl 2 puff IH DAILY 01/22/19 01/23/19 [Stiolto Respimat Inhal [place]] Trazodone HCl 50 mg PO DAILY 01/22/19 01/23/19 Varenicline [Chantix] 0.5 mg PO DAILY 01/22/19 01/23/19 Venlafaxine [Effexor] 25 mg PO BID 01/22/19 01/23/19 hydroCHLOROthiazide 12.5 mg PO DAILY 01/22/19 01/23/19 [Hydrochlorothiazide] Previous Rx's Medication Instructions Recorded Aspirin Enteric Coated [Aspirin EC] 81 mg PO DAILY #90 tablet. 03/28/17 Clopidogrel Bisulfate [Plavix] 75 mg PO DAILY #30 tablet 03/28/17 Loratadine [Claritin] 10 mg PO DAILY tab 03/28/17 Allergies Allergy/AdvReac Type Severity Reaction Status Date / Time bee venom protein (honey bee) Allergy See Verified 03/26/17 16:38 Comments tramadol Allergy Hives Verified 08/15/15 00:24 All systems ED: reviewed and negative except as stated. Review of Systems: As Per HPI Constitutional: Denies: fever, chills ENT ED: Denies: congestion Cardiovascular: Denies: chest pain Respiratory: Denies: dyspnea Gastrointestinal: Reports: abdominal pain, nausea, constipation. Denies: vomiting, diarrhea Genitourinary: Denies: dysuria, hematuria Musculoskeletal: Denies: back pain Integumentary: Denies: rash, abrasion Abdominal Pain PMH - Past Medical History Medical history: Reports: COPD, coronary artery disease, DVT, hyperlipidemia, hypertension, myocardial infarction, other Male Surgical History: Reports: other Psychiatric history: Reports: anxiety - Social History Smoking status: Current every day smoker Alcohol use: Reports: occasionally Drug use: Reports: none Physical Exam - General Limitations: no limitations General appearance: alert, in no apparent distress - Head Head exam: atraumatic, normocephalic, normal inspection - Eye Eye exam: Present: normal appearance, EOMI - ENT ENT exam: normal exam, normal oropharynx, mucous membranes moist - Neck Neck exam: Present: normal inspection, full ROM, trachea midline - Chest Chest inspection: Present: normal inspection, symmetric chest wall rise - Respiratory Respiratory exam: Present: normal lung sounds bilaterally - Cardiovascular Cardiovascular exam: Present: regular rate, normal rhythm, normal heart sounds - Abdominal Exam Abdominal exam: Present: soft, tenderness, distention, guarding. Absent: rebound, rigidity, tenderness at [place]Bur[place]'s Point Abdominal tenderness: Present: diffuse - Extremities Exam Extremities exam: Present: other (Left arm in splint with wrap) - Neurological Exam Neurological exam: Present: alert, oriented X3, normal gait - Psychiatric Psychiatric exam: Present: normal affect, normal mood - Skin Skin exam: Present: warm, dry, intact, normal color. Absent: rash, cyanosis, diaphoresis Course Course Narrative: Patient reports abdominal discomfort starting this morning. He has nausea without vomiting. Recently had anesthesia for his left arm surgery. He has not had any flatus or bowel movement. Concern for possible ileus versus any other intra-abdominal etiology. CT scan labs at this time. Fentanyl for pain and fluids. Disposition pending workup. - Reevaluation(s) Reevaluation #1: CT scan performed without contrast did not reveal any obvious intra-abdominal etiology. Requests for CT scan with contrast. His lipase was significantly elevated at 1000. He has a white count as well. Suspect likely pancreatitis. His pain is better controlled with morphine and fluids. Nausea is improved. Will await the CT scan likely admit for pancreatitis. He is agreeable to this plan. Reevaluation #2: CT scan with contrast showed evidence of pancreatitis without complication. Patient will be admitted. Etiology unknown at this time. He reports a history of alcoholism but has not drink recently. No significant evidence of acute cholecystitis at this time. He is otherwise stable for admission. - Consultations Consultation #1: Spoke with on-call hospitalist celsa Ball to admit for acute pancreatitis. No further orders at this time Time: 15:06 Vital Signs Temperature 98.4 F 01/23/19 10:28 Pulse Rate 75 01/23/19 10:28 Respiratory Rate 22 01/23/19 10:28 Blood Pressure 207/90 01/23/19 10:28 O2 Sat by Pulse Oximetry 95 01/23/19 10:28 Temperature 98.4 F 01/23/19 10:28 Pulse Rate 86 01/23/19 14:05 Respiratory Rate 18 01/23/19 14:05 Blood Pressure 184/76 01/23/19 14:05 O2 Sat by Pulse Oximetry 96 01/23/19 14:05 Oxygen Delivery Oxygen Delivery Room Air Abdominal Pain - MDM Narrative Medical decision making narrative: Patient was discussed with my attending physician who agrees with ED management and final disposition. They independently evaluated the patient. Please refer to their attestation to this encounter for additional information. This note was generated by [id number] voice recognition software and as a result grammatical or spelling errors may occur using this program. - Medical Records Medical records reviewed: Yes I reviewed the patient's medical records. - Lab Data Lab results reviewed: Yes I reviewed the patient's lab results. Result diagrams: 01/23/19 10:46 01/23/19 10:46 Lab Results 01/23/19 01/23/19 01/23/19 Range/Units 10:46 10:46 11:41 WBC 15.1 H D (4.3-11.1) K/mcL RBC 4.43 (4.19-5.50) M/mcL Hgb 12.5 L (12.9-16.9) g/dL Hct 38.2 (37.5-50.1) % MCV 86.2 (83.0-100.0) fL MCH 28.2 (28.0-33.3) pg MCHC 32.7 (31.6-35.5) g/dL RDW 18.7 H (11.5-14.5) % Plt Count 179 (140-400) K/mcL MPV 10.2 (9.4-12.4) fL Immature Gran % 0.5 (0-4) % Seg Neutrophils % 89.7 % Lymphocytes % 4.7 % Monocytes % 5.0 % Eosinophils % 0.0 % Basophils % 0.1 % Neutrophils # 13.5 H (1.6-8.9) K/mcL Lymphocytes # 0.7 (0.6-4.6) K/mcL Monocytes # 0.8 (0.0-1.3) K/mcL Eosinophils # 0.0 (0.0-0.6) K/mcL Basophils # 0.0 (0.0-0.2) K/mcL Sodium 132 L (136-145) mEq/L Potassium 3.8 (3.5-5.1) mEq/L Chloride 96 L (98-107) mEq/L Carbon Dioxide 26 (23-29) mEq/L BUN 8 (8-23) mg/dL Creatinine 0.65 L (0.70-1.30) mg/dL Est GFR ( Amer) > 60 (> 60) Est GFR (Non-Af Amer) > 60 (> 60) BUN/Creatinine Ratio 12 (6-26) Glucose 140 H (70-105) mg/dL Calculated Osmolality 275 L (280-300) Lactic Acid (0.5-2.2) mmol/L Calcium 9.5 (8.6-10.3) mg/dL Total Bilirubin 1.0 (0.3-1.0) mg/dL Direct Bilirubin 0.3 H (0.0-0.2) mg/dL Indirect Bilirubin 0.7 (0.0-1.2) mg/dL AST 30 (13-39) Units/L ALT 18 (7-52) Units/L Alkaline Phosphatase 48 (34-104) Units/L Troponin I < 0.03 (< 0.04) ng/mL Serum Total Protein 7.4 (6.4-8.9) g/dL Albumin 4.6 (3.5-5.7) g/dL Globulin 2.8 (2.4-3.5) g/dL Albumin/Globulin Ratio 1.6 (1.1-2.2) Lipase 1016 H (11-82) Units/L Urine Color Yellow (Yellow) Urine Clarity Clear (Clear) Urine pH 6.5 (5.0-8.0) pH Units Ur Specific [place] 1.011 (1.010-1.025) Urine Protein 30 H (Neg-Trace) mg/dL Urine Glucose (UA) 100 H (Normal) mg/dL Urine Ketones 15 H (Negative) mg/dL Urine Blood Negative (Negative) Urine Nitrite Negative (Negative) Urine Bilirubin Negative (Negative) Urine Urobilinogen Normal (Normal) mg/dL Ur Leukocyte Esterase Negative (Negative) Urine Microscopic RBC 0-3 (0-3) per hpf Urine Microscopic WBC 0-3 (0-3) per hpf Ur Squamous Epith Cells Moderate H (None-Few) per lpf Urine Bacteria None Seen (None-Few) per hpf Hyaline Casts None Seen (None-Few) per lpf Ur Culture Indicated? NO (NO) 01/23/19 Range/Units 11:43 WBC (4.3-11.1) K/mcL RBC (4.19-5.50) M/mcL Hgb (12.9-16.9) g/dL Hct (37.5-50.1) % MCV (83.0-100.0) fL MCH (28.0-33.3) pg MCHC (31.6-35.5) g/dL RDW (11.5-14.5) % Plt Count (140-400) K/mcL MPV (9.4-12.4) fL Immature Gran % (0-4) % Seg Neutrophils % % Lymphocytes % % Monocytes % % Eosinophils % % Basophils % % Neutrophils # (1.6-8.9) K/mcL Lymphocytes # (0.6-4.6) K/mcL Monocytes # (0.0-1.3) K/mcL Eosinophils # (0.0-0.6) K/mcL Basophils # (0.0-0.2) K/mcL Sodium (136-145) mEq/L Potassium (3.5-5.1) mEq/L Chloride (98-107) mEq/L Carbon Dioxide (23-29) mEq/L BUN (8-23) mg/dL Creatinine (0.70-1.30) mg/dL Est GFR ( Amer) (> 60) Est GFR (Non-Af Amer) (> 60) BUN/Creatinine Ratio (6-26) Glucose (70-105) mg/dL Calculated Osmolality (280-300) Lactic Acid 1.9 (0.5-2.2) mmol/L Calcium (8.6-10.3) mg/dL Total Bilirubin (0.3-1.0) mg/dL Direct Bilirubin (0.0-0.2) mg/dL Indirect Bilirubin (0.0-1.2) mg/dL AST (13-39) Units/L ALT (7-52) Units/L Alkaline Phosphatase (34-104) Units/L Troponin I (< 0.04) ng/mL Serum Total Protein (6.4-8.9) g/dL Albumin (3.5-5.7) g/dL Globulin (2.4-3.5) g/dL Albumin/Globulin Ratio (1.1-2.2) Lipase (11-82) Units/L Urine Color (Yellow) Urine Clarity (Clear) Urine pH (5.0-8.0) pH Units Ur Specific [place] (1.010-1.025) Urine Protein (Neg-Trace) mg/dL Urine Glucose (UA) (Normal) mg/dL Urine Ketones (Negative) mg/dL Urine Blood (Negative) Urine Nitrite (Negative) Urine Bilirubin (Negative) Urine Urobilinogen (Normal) mg/dL Ur Leukocyte Esterase (Negative) Urine Microscopic RBC (0-3) per hpf Urine Microscopic WBC (0-3) per hpf Ur Squamous Epith Cells (None-Few) per lpf Urine Bacteria (None-Few) per hpf Hyaline Casts (None-Few) per lpf Ur Culture Indicated? (NO) - Radiology Data Radiology results reviewed: Yes I reviewed the patient's radiology results. Abdomen/Pelvis CT 01/23/19 10:30 IMPRESSION: Inflammatory changes of the abdomen as discussed. It is unclear whether this originates from focal colitis of the transverse colon, or from pancreatitis or duodenitis. If feasible consider follow-up CT angiogram of the abdomen as ischemic colitis would be of concern.. D/ / Rusty Navarro MD / Rusty Navarro MD Interpreting Provider: Rusty Navarro MD Chest X-Ray 01/23/19 10:30 IMPRESSION: Lucency underneath the right hemidiaphragm. Although this may represent colonic gas, possibility of bowel perforation is not excluded. Please refer to the CT abdomen and pelvis for further evaluation. Age indeterminate multiple right-sided rib fractures are new since previous examination on 10/23/2012. Clinical correlation is recommended for any history of trauma. No evidence of a focal consolidation, pneumothorax, or significant pleural effusion. D/ / 01/23/2019 10:59:01 Kelby Baig MD / dennis Interpreting Provider: Kelby Baig MD Abdomen/Pelvis CTA 01/23/19 11:26 IMPRESSION: 1. Acute pancreatitis without complicating event evident. Correlate with serum amylase/lipase. 2. Atherosclerosis with resultant mild narrowing of the proximal to mid superior mesenteric artery. No critical stenosis evident. 3. Probable reactive small volume pelvic ascites. 4. Diverticulosis coli without CT evidence of acute diverticulitis. D/ / Corbin Rizvi / Corbin Rizvi Interpreting Provider: Corbin Rizvi Attestation Statement - Attestation Attestation: Patient was seen with resident physician. I reviewed the history, physical, assessment and plan, and agree with the findings. I also personally evaluated this patient and had [id number] time with this patient. 63-year-old male presents emergency department with abdominal pain and distention. Patient states that he had hand surgery yesterday. From the sounds of that he was fully intubated. He was discharged same day. Patient states that he has not passed any gas that he is aware of. He was vomiting at 2:00 this morning, but now he says he still is nauseous with some dry heaving, but he has not thrown up this morning. He says though abdomen is swollen and tender. Pain is sharp. Denies other complaints. Review of systems as above remainder negative. Physical exam vital signs are stable. ENT is unremarkable. Heart regular rhythm and rate. Lungs are clear. Abdomen is distended, diffusely tender, there is no guarding rigidity. Extremities are unremarkable except for left upper extremity splint. Neurologically intact. Skin no rashes. ED course. I we will do workup for ileus or obstruction. Check lab tests and a CT scan. We will also check an EKG and a troponin. Hemodynamically the patient remained stable in the emergency department. Labs and CT scan were consistent with pancreatitis. Patient was made nothing by mouth. IV hydration was started. We contacted the hospitalist service to arrange for admission. Findings of the workup were communicated to the patient. Hemodynamically he remained stable while here. I agree with resident physician assessment and plan. ED procedures.I reviewed the patient's EKG as well as the resident physician interpretation and I agree with the findings.
[2019-01-23 10:57] LABS: Basophils % 0.1 %; Hematocrit 38.2 % (37.5-50.1); Hemoglobin 12.5 g/dL (12.9-16.9); Immature Granulocytes % 0.5 % (0-4); Lymphocytes # 0.7 K/mcL (0.6-4.6); Lymphocytes % 4.7 %; Mean Corpuscular HGB Conc 32.7 g/dL (31.6-35.5); Mean Corpuscular Hemoglobin 28.2 pg (28.0-33.3); Mean Corpuscular Volume 86.2 fL (83.0-100.0); Mean Platelet Volume 10.2 fL (9.4-12.4); Monocytes # 0.8 K/mcL (0.0-1.3); Platelet Count 179 K/mcL (140-400); Red Blood Count 4.43 M/mcL (4.19-5.50); Red Cell Distribution Width 18.7 % (11.5-14.5); Segmented Neutrophils % 89.7 %
[2019-01-23 11:03] LABS: Neutrophils # 13.5 K/mcL (1.6-8.9); White Blood Count 15.1 K/mcL (4.3-11.1)
[2019-01-23] MEDS ORDERED: *HR* FentaNYL (PF) 100 MCG/2 ML VIAL IVP ONE (11:15)
[2019-01-23] MEDS ORDERED: 0.9 % Sodium Chloride 1,000 ML IVC ONE ×2 (11:26→12:58)
[2019-01-23] MEDS ORDERED: Isovue-370 500 ML BOTTLE IVP ONE (11:26)
[2019-01-23 11:40] LABS: Alanine Aminotransferase 18 Units/L (7-52); Albumin 4.6 g/dL (3.5-5.7); Albumin/Globulin Ratio 1.6 (1.1-2.2); Alkaline Phosphatase 48 Units/L (34-104); Aspartate Amino Transferase 30 Units/L (13-39); BUN/Creatinine Ratio 12 (6-26); Bilirubin,Direct 0.3 mg/dL (0.0-0.2); Bilirubin,Indirect 0.7 mg/dL (0.0-1.2); Blood Urea Nitrogen 8 mg/dL (8-23); Calcium 9.5 mg/dL (8.6-10.3); Carbon Dioxide 26 mEq/L (23-29); Chloride 96 mEq/L (98-107); Globulin 2.8 g/dL (2.4-3.5); Glucose 140 mg/dL (70-105); Lipase 1016 Units/L (11-82); Osmolality,Calculated 275 (280-300); Potassium 3.8 mEq/L (3.5-5.1); Sodium 132 mEq/L (136-145); Total Protein 7.4 g/dL (6.4-8.9); Troponin I < 0.03 ng/mL (< 0.04); eGFR For African Americans > 60 (> 60); eGFR For Non-African Americans > 60 (> 60)
[2019-01-23 12:03] LABS: Bilirubin,Urine Negative (Negative); Blood,Urine Negative (Negative); Clarity,Urine Clear (Clear); Color,Urine Yellow (Yellow); Glucose,Urine (UA) 100 mg/dL (Normal); Ketones,Urine 15 mg/dL (Negative); Leukocyte Esterase,Urine Negative (Negative); Nitrite,Urine Negative (Negative); PH,Urine 6.5 pH Units (5.0-8.0); Protein,Urine 30 mg/dL (Neg-Trace); Specific Gravity,Urine 1.011 (1.010-1.025); Urobilinogen,Urine Normal (Normal)
[2019-01-23 12:08] LABS: Bacteria,Urine None Seen per hpf (None-Few); Hyaline Casts,Urine None Seen per lpf (None-Few); RBC,Urine 0-3 per hpf (0-3); Squamous Epithelial Cell,Urine Moderate per lpf (None-Few); WBC,Urine 0-3 per hpf (0-3)
[2019-01-23] MEDS ORDERED: *HR* Morphine 2 MG/ML SYRINGE IVP ONE ×2 (12:57→17:02)
--- NOTE | 2019-01-23 15:40 | Internal Med History&Physical ---
<Gale Domingo - Last Filed: 01/23/19 16:42> Date of Encounter: 01/23/19 Time of Encounter: 15:35 Internal Medicine - H&P: HPI Chief complaint: Abdominal pain Admitted From: Emergency Dept Plans for Post Hospital Care: Home History of present illness: Mr. Arce is a 63 year old male with past medical history of COPD, CAD, [place], DVT presented to [facility] ED as a transfer from the [place] due to abdominal pain. Upon my examination of the patient he reported that he will give this morning at 2 AM with severe sharp pain in his epigastric region. It continued without ceasing all day. He went to the [place] urgent care and they sent him to [facility] ED. Additionally he reported nausea, not bloody vomiting, chills. He denied fever, chest pain, shortness of breath. He has not had a bowel movement all day today and he does not think he has passed gas. He reports that this feels like the last time you pancreatitis but more severe this time. Last time he did not had to be hospitalized and it was due to his alcoholism. He drinks 3 tallboy beers a day and on the weekends he will drink 6 to 8 smaller beers. He has been drinking heavily since he was 12 years old. The patient reported not taking his blood pressure medications today. He is a current smoker. He denies drug use. He is a full code. Initial vitals in ED: temperature 98.4, HR 75, RR 22, BP 207/90, SpO2 95% on room air. Lipase 1016, WBC 15.1, hemoglobin 12.5, sodium 132, lactic acid 1.9, calcium 9.5, total bilirubin 1.0, direct bilirubin 0.3, LFT WNL, alkaline phosphatase 48, troponin < 0.03. Urinalysis unremarkable. -Abdominal/pelvis CTA showing acute pancreatitis without complication. -In the ED he was given 2L IVF bolus, morphine, fentanyl, Zofran. Past Med Surg Social Fam HX - Past Medical History Attestation: Yes The following information was validated with the patient. Source: patient Medical history: aortic aneurysm, COPD, coronary artery disease, DVT, hyperlipidemia, hypertension, myocardial infarction, other Additional medical history: anxiety. rupture of ulnar collateral ligament of left thumb, subsequent encounter. tobacco dependency Psychiatric history: anxiety - Past Surgical History Surgical History: other Additional surgical history: cervical fusion. cervical discectomy - Social History Smoking Status: Current every day smoker Smokeless Tobacco Status: No Alcohol use: heavy Drug use: none Internal Medicine - H&P: Meds Melatonin [Melatin] 5 mg PO HS PRN 08/15/15 [History] hydrOXYzine HCl [Hydroxyzine HCl] 50 mg PO TID PRN 08/15/15 [History] EPINEPHrine [Epipen] 0.3 mg IM ONCE PRN 03/26/17 [History] Pregabalin [Lyrica] 300 mg PO DAILY 03/26/17 [History] Sildenafil Citrate [Viagra] 100 mg PO DAILY PRN 03/26/17 [History] Aspirin Enteric Coated [Aspirin EC] 81 mg PO DAILY #90 tablet. 03/28/17 [Rx] Clopidogrel Bisulfate [Plavix] 75 mg PO DAILY #30 tablet 03/28/17 [Rx] Loratadine [Claritin] 10 mg PO DAILY tab 03/28/17 [Rx] Albuterol Sulfate [Albuterol Inhaler] 2 puff IH [id number] PRN 01/22/19 [History] Amlodipine Besylate 10 mg PO DAILY 01/22/19 [History] Atorvastatin Calcium [Lipitor] 20 mg PO DAILY 01/22/19 [History] Calcium Carbonate [Calcium] 600 mg PO DAILY 01/22/19 [History] Cholecalciferol (D-3) [Vitamin D] 1,000 unit PO DAILY 01/22/19 [History] Cyclobenzaprine HCl 5 mg PO TID 01/22/19 [History] Docusate Sodium [Stool Softener] 50 mg PO DAILY 01/22/19 [History] Lidocaine [Aspercreme] 1 each TP Q12H PRN 01/22/19 [History] Lisinopril [Zestril] 40 mg PO DAILY 01/22/19 [History] Magnesium Oxide [Magnesium] 400 mg PO BID 01/22/19 [History] Methocarbamol [Robaxin] 750 mg PO Q4H 01/22/19 [History] Terazosin HCl 2 mg PO DAILY 01/22/19 [History] Tiotropium Br/Olodaterol HCl [Stiolto Respimat Inhal [place]] 2 puff IH DAILY 01/22/19 [History] Trazodone HCl 50 mg PO DAILY 01/22/19 [History] Varenicline [Chantix] 0.5 mg PO DAILY 01/22/19 [History] Venlafaxine [Effexor] 25 mg PO BID 01/22/19 [History] hydroCHLOROthiazide [Hydrochlorothiazide] 12.5 mg PO DAILY 01/22/19 [History] Allergy/AdvReac Type Severity Reaction Status Date / Time bee venom protein (honey bee) Allergy See Verified 03/26/17 16:38 Comments tramadol Allergy Hives Verified 08/15/15 00:24 All Systems PM: A 10-system review of systems was performed and is negative for pertinent findings except as documented above in the HPI. - Constitutional Constitutional: chills, malaise, no fever(s) - EENT Eyes: no change in vision - Cardiovascular Cardiovascular ROS IM: no chest pain, no palpitations - Respiratory Respiratory: no cough, no dyspnea, no wheezing - Gastrointestinal Gastrointestinal: abdominal pain, belching, nausea, vomiting, no diarrhea, no hematemesis, no hematochezia, no melena - Genitourinary Genitourinary ROS male: no difficulty urinating, no dysuria - Integumentary Integumentary IM: no rash, no skin ulcer - Neurological Neurological ROS: no confusion, no dizziness - Constitutional Vitals: Temp Pulse Resp BP Pulse Ox 98.4 F 86 18 184/76 96 01/23/19 10:28 01/23/19 14:05 01/23/19 14:05 01/23/19 14:05 01/23/19 14:05 Exam: Gen.: Vitals noted. Mild acute distress. AAOx3, appears diaphragmatic HEENT: oropharynx clear, Normocephalic, atraumatic Cardiac: RRR, no murmur, +S1/S2 Pulmonary: CTA bilaterally, no wheezes, rales or rhonchi, equal chest expansion Abdomen: soft, epigastric in right upper quadrant tender, Bowel sounds noted, no guarding MSK: ROM intact, no joint swelling noted Extremities: no BLE edema, nontender calf, no cyanosis or clubbing Neuro: A&Ox3, moves all extremities, no focal deficits Psych: Appropriate mood and behavior Internal Med - H&P Results - Labs CBC & Chem 7: 01/23/19 10:46 01/23/19 10:46 Labs: Short CBC 01/23/19 Range/Units 10:46 WBC 15.1 H D (4.3-11.1) K/mcL Hgb 12.5 L (12.9-16.9) g/dL Hct 38.2 (37.5-50.1) % Plt Count 179 (140-400) K/mcL Neutrophils # 13.5 H (1.6-8.9) K/mcL BMP 01/23/19 10:46 Sodium 132 L Potassium 3.8 Chloride 96 L Carbon Dioxide 26 BUN 8 Creatinine 0.65 L Glucose 140 H Calcium 9.5 Cardiac Enzymes 01/23/19 Range/Units 10:46 Troponin I < 0.03 (< 0.04) ng/mL Liver Function 01/23/19 Range/Units 10:46 Total Bilirubin 1.0 (0.3-1.0) mg/dL Direct Bilirubin 0.3 H (0.0-0.2) mg/dL AST 30 (13-39) Units/L ALT 18 (7-52) Units/L Alkaline Phosphatase 48 (34-104) Units/L Albumin 4.6 (3.5-5.7) g/dL Urine 01/23/19 Range/Units 11:41 Urine Color Yellow (Yellow) Urine Clarity Clear (Clear) Urine pH 6.5 (5.0-8.0) pH Units Ur Specific [place] 1.011 (1.010-1.025) Urine Protein 30 H (Neg-Trace) mg/dL Urine Glucose (UA) 100 H (Normal) mg/dL - Impressions ITS Impressions Abdomen/Pelvis CT 01/23/19 10:30 IMPRESSION: Inflammatory changes of the abdomen as discussed. It is unclear whether this originates from focal colitis of the transverse colon, or from pancreatitis or duodenitis. If feasible consider follow-up CT angiogram of the abdomen as ischemic colitis would be of concern.. D/ / Rusty Navarro MD / Rusty Navarro MD Interpreting Provider: Rusty Navarro MD Chest X-Ray 01/23/19 10:30 IMPRESSION: Lucency underneath the right hemidiaphragm. Although this may represent colonic gas, possibility of bowel perforation is not excluded. Please refer to the CT abdomen and pelvis for further evaluation. Age indeterminate multiple right-sided rib fractures are new since previous examination on 10/23/2012. Clinical correlation is recommended for any history of trauma. No evidence of a focal consolidation, pneumothorax, or significant pleural effusion. D/ / 01/23/2019 10:59:01 Kelby Baig MD / dennis Interpreting Provider: Kelby Baig MD Abdomen/Pelvis CTA 01/23/19 11:26 IMPRESSION: 1. Acute pancreatitis without complicating event evident. Correlate with serum amylase/lipase. 2. Atherosclerosis with resultant mild narrowing of the proximal to mid superior mesenteric artery. No critical stenosis evident. 3. Probable reactive small volume pelvic ascites. 4. Diverticulosis coli without CT evidence of acute diverticulitis. D/ / Corbin Rizvi / Corbin Rizvi Interpreting Provider: Corbin Rizvi - Assessment and Plan (1) Pancreatitis Current Visit: Yes Status: Acute Assessment and plan: Pancreatitis demonstrated on abdominal CTA -patient has history of having one other episode of pancreatitis secondary to alcohol that do not require hospitalization. He has history of heavy alcohol use drinking 3 tallboy beers the day and 6 smaller beers on the weekend since 12 years old. -Differential for etiology of pancreatitis is alcoholism most likely. Patient is taking hydrocodone thiazide which can cause pancreatitis. Consider gallstones as he occasionally has biliary colic. Triglycerides in calcium WNL. -Lipase 1016 -WBC 15.1 -lactic acid 1.9 -calcium 9.5 -triglycerides 58, lipid panel unremarkable -total bilirubin 1.0, direct bilirubin 0.3, LFT WNL, alkaline phosphatase 48 -Laura criteria: 1 -Abdominal/pelvis CTA showing acute pancreatitis without complication. Plan -continue aggressive IV fluid rehydration -NPO -continue supportive care with PRN pain medication and Zofran -continue serial abdominal exams -hold hydrocothiazide -order a right upper quadrant ultrasound to evaluate for gallstones Qualifiers: Chronicity: acute Pancreatitis type: alcohol induced Acute pancreatitis complication: unspecified Qualified Code(s): K85.20 - Alcohol induced acute pancreatitis without necrosis or infection (2) Abdominal pain Current Visit: Yes Status: Acute Assessment and plan: Most likely secondary to pancreatitis as seen on abdominal CTA. -There was no evidence on imaging of ischemic colitis and mesenteric ischemia. Not an acute abdomen on exam. -lactic acid 1.9 -total bilirubin 1.0, direct bilirubin 0.3, LFT WNL, alkaline phosphatase 48 -Abdominal/pelvis CTA showing acute pancreatitis without complication. -Plan as above Qualifiers: Abdominal location: epigastric Qualified Code(s): R10.13 - Epigastric pain (3) Alcohol abuse Current Visit: Yes Status: Acute Assessment and plan: He has history of heavy alcohol use drinking 3 tallboy beers the day and 6 smaller beers on the weekend since 12 years old. -He has been through alcohol withdrawal. Denied ever having seizures and Dts. -Continue CIWA protocol with Ativan (4) COPD (chronic obstructive pulmonary disease) Current Visit: Yes Status: Acute Assessment and plan: History of COPD. Not on oxygen. -Continue home inhaler -continue duoneb Qualifiers: COPD type: chronic bronchitis Qualified Code(s): J42 - Unspecified chronic bronchitis (5) Essential hypertension Current Visit: No Status: Chronic Assessment and plan: History of hypertension taking hydrochlorothiazide, lisinopril, amlodipine -BP elevated 174/88 -Continue lisinopril and amlodipine -Lopressor IV PRN -hold hydrochlorothiazide as it can cause acute pancreatitis (6) Tobacco abuse Current Visit: No Status: Chronic Assessment and plan: Smokes daily (7) CAD (coronary artery disease) Current Visit: Yes Status: Acute Assessment and plan: history of coronary artery disease taking Plavix and aspirin. - Continue medications Qualifiers: Qualified Code(s): I25.10 - Atherosclerotic heart disease of [place] coronary artery without angina pectoris (8) Anemia Current Visit: Yes Status: Acute Assessment and plan: Anemia that appears chronic and nature. Hemoglobin at admission 12.5 -baseline [id number] -MCV WNL -no obvious active bleeding -will continue to monitor Qualifiers: Anemia type: unspecified type Qualified Code(s): D64.9 - Anemia, unspecified (9) DVT prophylaxis Current Visit: Yes Status: Acute Assessment and plan: SCD (10) Hyponatremia Current Visit: Yes Status: Acute Assessment and plan: Hyponatremia on admission sodium 132 -likely due to poor oral intake due to alcoholism -appears chronic at baseline -patient received IV fluids in ED -will repeat sodium level - Time Spent With Patient Total time spent is greater than 50% in coordination of care (as documented) at patient's floor/unit and/or counseling patient: <SrinivasbroMiladis lunsford - Last Filed: 01/23/19 19:01> Date of Encounter: 01/23/19 Internal Medicine - H&P: HPI History of present illness: Mr. Arce is a 63 year old male All Systems PM: A 10-system review of systems was performed and is negative for pertinent findings except as documented above in the HPI. - Constitutional Vitals: Temp Pulse Resp BP Pulse Ox 98.2 F 75 15 207/101 95 01/23/19 17:43 01/23/19 17:43 01/23/19 17:43 01/23/19 17:43 01/23/19 17:43 Internal Med - H&P Results - Labs CBC & Chem 7: 01/23/19 10:46 01/23/19 15:48 Labs: Short CBC 01/23/19 Range/Units 10:46 WBC 15.1 H D (4.3-11.1) K/mcL Hgb 12.5 L (12.9-16.9) g/dL Hct 38.2 (37.5-50.1) % Plt Count 179 (140-400) K/mcL Neutrophils # 13.5 H (1.6-8.9) K/mcL BMP 01/23/19 01/23/19 10:46 15:48 Sodium 132 L 134 L Potassium 3.8 Chloride 96 L Carbon Dioxide 26 BUN 8 Creatinine 0.65 L Glucose 140 H Calcium 9.5 Cardiac Enzymes 01/23/19 Range/Units 10:46 Troponin I < 0.03 (< 0.04) ng/mL Liver Function 01/23/19 Range/Units 10:46 Total Bilirubin 1.0 (0.3-1.0) mg/dL Direct Bilirubin 0.3 H (0.0-0.2) mg/dL AST 30 (13-39) Units/L ALT 18 (7-52) Units/L Alkaline Phosphatase 48 (34-104) Units/L Albumin 4.6 (3.5-5.7) g/dL Urine 06/15/19 Range/Units 11:41 Urine Color Yellow (Yellow) Urine Clarity Clear (Clear) Urine pH 6.5 (5.0-8.0) pH Units Ur Specific [place] 1.011 (1.010-1.025) Urine Protein 30 H (Neg-Trace) mg/dL Urine Glucose (UA) 100 H (Normal) mg/dL - Impressions ITS Impressions Abdomen/Pelvis CT 01/23/19 10:30 IMPRESSION: Inflammatory changes of the abdomen as discussed. It is unclear whether this originates from focal colitis of the transverse colon, or from pancreatitis or duodenitis. If feasible consider follow-up CT angiogram of the abdomen as ischemic colitis would be of concern.. D/ / Rusty Navarro MD / Rusty Navarro MD Interpreting Provider: Rusty Navarro MD Chest X-Ray 01/23/19 10:30 IMPRESSION: Lucency underneath the right hemidiaphragm. Although this may represent colonic gas, possibility of bowel perforation is not excluded. Please refer to the CT abdomen and pelvis for further evaluation. Age indeterminate multiple right-sided rib fractures are new since previous examination on 10/23/2012. Clinical correlation is recommended for any history of trauma. No evidence of a focal consolidation, pneumothorax, or significant pleural effusion. D/ / 01/23/2019 10:59:01 Kelby Baig MD / dennis Interpreting Provider: Kelby Baig MD Abdomen/Pelvis CTA 01/23/19 11:26 IMPRESSION: 1. Acute pancreatitis without complicating event evident. Correlate with serum amylase/lipase. 2. Atherosclerosis with resultant mild narrowing of the proximal to mid superior mesenteric artery. No critical stenosis evident. 3. Probable reactive small volume pelvic ascites. 4. Diverticulosis coli without CT evidence of acute diverticulitis. D/ / Corbin Rizvi / Corbin Rizvi Interpreting Provider: Corbin Rizvi - Assessment and Plan (1) Essential hypertension Current Visit: No Status: Chronic (2) Tobacco abuse Current Visit: No Status: Chronic (3) Pancreatitis Current Visit: Yes Status: Acute Qualifiers: Chronicity: acute Pancreatitis type: alcohol induced Acute pancreatitis complication: unspecified Qualified Code(s): K85.20 - Alcohol induced acute pancreatitis without necrosis or infection (4) Alcohol abuse Current Visit: Yes Status: Acute (5) COPD (chronic obstructive pulmonary disease) Current Visit: Yes Status: Acute Qualifiers: COPD type: chronic bronchitis Qualified Code(s): J42 - Unspecified chronic bronchitis (6) Abdominal pain Current Visit: Yes Status: Acute Qualifiers: Abdominal location: epigastric Qualified Code(s): R10.13 - Epigastric pain (7) DVT prophylaxis Current Visit: Yes Status: Acute (8) CAD (coronary artery disease) Current Visit: Yes Status: Acute Qualifiers: Qualified Code(s): I25.10 - Atherosclerotic heart disease of [place] coronary artery without angina pectoris (9) Anemia Current Visit: Yes Status: Acute Qualifiers: Anemia type: unspecified type Qualified Code(s): D64.9 - Anemia, unspecified (10) Hyponatremia Current Visit: Yes Status: Acute - Time Spent With Patient Total time spent is greater than 50% in coordination of care (as documented) at patient's floor/unit and/or counseling patient: - Attending Attestation I examined this patient and my medical decision-making was reviewed with the Resident Physician Dr Domingo. I agree with the documented findings, disposition and treatment plan as described except to the extent set forth below. Mr Arce is admitted with acute pancreatitis in distress, wretching but no emesis and abd pain has returned after IV med in ED. able to lay down and take deep breaths with return of HR to normal and improved nausea. + abd pain, perhaps intermittently over last week. says no etoh since one week ago but avoids making eye contact when discussing. some ruq pain at home at times. emesis at home this morning looked like bile. denies blood in vomit. surgery yesterday, cannot recall if had bm this morning. urinating without difficulty. no fevers chills, cp, palpitations or sob. denies chf history. discussed plan in detail. informed me plavix had been held for surgery and he has not yet resumed. gen- alert, awake,appears stated age, distress with pain eyes- pupils equal round , no scleral icterus cv- reg rate and rhythm, normal s1,s2, no murmurs appreciated, no le edema lungs- ctabl, no wheezing, rhonchi or crackles abd- soft, + tender epigastric reqion and BL UQs, +distended, not taut + bs neuro- AAOx3, CN grossly intact, no tremor Acute pancreatitis as evidenced by CT findings, clinical presentation and Lipase elevation -attempt to ID etiology,RUQ US, suspect this is etoh related or perhaps hctz - npo except essential meds, IVFs, give addl bolus and high rate MIVF, prn pain control Leukocytosis 2/2 above- CXR and UA reviewed, negative, CT a/p without evidence of addl infection HTN, elevated above goal- pain control, home meds with exception of HCTZ s/p Hand surgery by Dr Hawthorne yesterday for failed ligament reconstruction, without complication- cont to hold plavix today, scds no pharm vte ppx to avoid post op bleeding, will re eval in am Chronic anemia at baseline Chronic hyponatremia at baseline- received 2L NS in ED, will recheck Na level this evening CAD/PVD- cont asa + statin + plavix as soon as able to tolerate po further diagnoses and plan as noted by resident
--- NOTE | 2019-01-23 16:10 | Event Note ---
Date of Encounter: 01/23/19 Time of Encounter: 16:40 to serve as attestation pending completion of resident H&P I examined this patient and my medical decision-making was reviewed with the Resident Physician Dr Domingo. I agree with the documented findings, disposition and treatment plan as described except to the extent set forth below. Mr Arce is admitted with acute pancreatitis in distress, wretching but no emesis and abd pain has returned after IV med in ED. able to lay down and take deep breaths with return of HR to normal and improved nausea. + abd pain, perhaps intermittently over last week. says no etoh since one week ago but avoids making eye contact when discussing. some ruq pain at home at times. emesis at home this morning looked like bile. denies blood in vomit. surgery yesterday, cannot recall if had bm this morning. urinating without difficulty. no fevers chills, cp, palpitations or sob. denies chf history. discussed plan in detail. informed me plavix had been held for surgery and he has not yet resumed. gen- alert, awake,appears stated age, distress with pain eyes- pupils equal round , no scleral icterus cv- reg rate and rhythm, normal s1,s2, no murmurs appreciated, no le edema lungs- ctabl, no wheezing, rhonchi or crackles abd- soft, + tender epigastric reqion and BL UQs, +distended, not taut + bs neuro- AAOx3, CN grossly intact, no tremor Acute pancreatitis as evidenced by CT findings, clinical presentation and Lipase elevation -attempt to ID etiology,RUQ US, suspect this is etoh related or perhaps hctz - npo except essential meds, IVFs, give addl bolus and high rate MIVF, prn pain control Leukocytosis 2/2 above- CXR and UA reviewed, negative, CT a/p without evidence of addl infection HTN, elevated above goal- pain control, home meds with exception of HCTZ s/p Hand surgery by Dr Hawthorne yesterday for failed ligament reconstruction, without complication- cont to hold plavix today, scds no pharm vte ppx to avoid post op bleeding, will re eval in am Chronic anemia at baseline Chronic hyponatremia at baseline- received 2L NS in ED, will recheck Na level this evening CAD/PVD- cont asa + statin + plavix as soon as able to tolerate po further diagnoses and plan as noted by resident
[2019-01-23 16:25] LABS: Chol/HDL Ratio 1.6 (0-4.9); Cholesterol 108 mg/dL (< 200); Ethanol < 10 mg/dL (Less than 10); HDL Cholesterol 66 mg/dL (40-59); LDL Cholesterol,Calculated 30 mg/dL (0-99); Triglycerides 58 mg/dL (< 150)
[2019-01-23] MEDS ORDERED: Naloxone 0.4 MG/ML INJ IVP PRN (16:43)
[2019-01-23] MEDS ORDERED: Ondansetron 4 MG/2 ML VIAL IVP PRN (16:46)
[2019-01-23] MEDS ORDERED: *HR* LORazepam 2 MG/ML VIAL IVP PRN ×3 (16:47)
[2019-01-23] MEDS ORDERED: Ringers Solution, Lactated 1,000 ML IVC ONE (17:15)
[2019-01-23 17:18] LABS: Sodium 134 mEq/L (136-145)
[2019-01-23] MEDS ORDERED: Ipratropium/Albuterol Neb 3 ML IH PRN (17:19)
[2019-01-23] MEDS: *HR* Metoprolol 5 MG/5 ML VIAL IVP PRN ×2 (17:20→23:32)
[2019-01-23] MEDS: Ringers Solution, Lactated 1,000 ML IVC SCH (17:21)
[2019-01-23] MEDS: traZODone 50 MG TABLET PO SCH (20:37)
[2019-01-23] MEDS: Lisinopril 20 MG TABLET PO SCH (20:37)
[2019-01-23] MEDS ORDERED: *HR* Heparin 5,000 UNIT/ML VIAL SQ SCH (22:00)
[2019-01-23] MEDS: Melatonin 3 MG TABLET PO PRN (23:32)
[2019-01-23] MEDS: OXYCODONE Oral CONC 10 MG/0.5 ML ORAL.SYG SL PRN (23:32)
[2019-01-24] MEDS: Ringers Solution, Lactated 1,000 ML IVC SCH ×3 (02:40→18:22)
[2019-01-24] MEDS: OXYCODONE Oral CONC 10 MG/0.5 ML ORAL.SYG SL PRN ×3 (05:43→18:09)
[2019-01-24 05:55] LABS: Basophils % 0.2 %; Eosinophils % 0.4 %; Hematocrit 34.1 % (37.5-50.1); Immature Granulocytes % 0.5 % (0-4); Lymphocytes # 0.9 K/mcL (0.6-4.6); Lymphocytes % 8.7 %; Mean Corpuscular Hemoglobin 27.9 pg (28.0-33.3); Mean Corpuscular Volume 87.4 fL (83.0-100.0); Monocytes # 0.7 K/mcL (0.0-1.3); Monocytes % 6.3 %; Neutrophils # 8.9 K/mcL (1.6-8.9); Platelet Count 128 K/mcL (140-400); Red Cell Distribution Width 19.4 % (11.5-14.5); Segmented Neutrophils % 83.9 %; White Blood Count 10.5 K/mcL (4.3-11.1)
[2019-01-24 05:58] LABS: Hemoglobin 10.9 g/dL (12.9-16.9)
[2019-01-24 06:32] LABS: BUN/Creatinine Ratio 10 (6-26); Blood Urea Nitrogen 6 mg/dL (8-23); Calcium 8.5 mg/dL (8.6-10.3); Carbon Dioxide 27 mEq/L (23-29); Chloride 100 mEq/L (98-107); Glucose 107 mg/dL (70-105); Lipase 776 Units/L (11-82); Magnesium 1.6 mg/dL (1.6-2.6); Osmolality,Calculated 282 (280-300); Potassium 3.5 mEq/L (3.5-5.1); Sodium 137 mEq/L (136-145); eGFR For African Americans > 60 (> 60); eGFR For Non-African Americans > 60 (> 60)
[2019-01-24] MEDS: Thiamine (B-1) 100 MG TABLET PO SCH (08:02)
[2019-01-24] MEDS: Lisinopril 20 MG TABLET PO SCH (08:02)
[2019-01-24] MEDS: amLODIPine 5 MG TABLET PO SCH (08:02)
[2019-01-24] MEDS: Folic Acid 1 MG TABLET PO SCH (08:04)
[2019-01-24] MEDS: Aspirin Enteric Coated 81 MG Tablet PO SCH (08:04)
[2019-01-24] MEDS ORDERED: (Tiotropium Br/Olodaterol Hcl [Stiolto Respimat Inhal IH SCH (09:00)
--- NOTE | 2019-01-24 09:28 | Internal Med Progress Note ---
<Miladis Jackman - Last Filed: 01/24/19 10:40> Hospitalist Progress Note - Encounter Date of Encounter: 01/24/19 - Exam Vitals: Temp Pulse Resp BP Pulse Ox 98.6 F 94 14 120/70 91 01/24/19 10:14 01/24/19 10:14 01/24/19 10:14 01/24/19 10:14 01/24/19 10:14 - Assessment and Plan (1) Essential hypertension Current Visit: No Status: Chronic (2) Tobacco abuse Current Visit: No Status: Chronic (3) Pancreatitis Current Visit: Yes Status: Acute (4) Alcohol abuse Current Visit: Yes Status: Acute (5) COPD (chronic obstructive pulmonary disease) Current Visit: Yes Status: Acute (6) Abdominal pain Current Visit: Yes Status: Acute (7) DVT prophylaxis Current Visit: Yes Status: Acute (8) CAD (coronary artery disease) Current Visit: Yes Status: Acute (9) Anemia Current Visit: Yes Status: Acute (10) Hyponatremia Current Visit: Yes Status: Acute - Time Spent with Patient Total time spent is greater than 50% in coordination of care (as documented) at patient's floor/unit and/or counseling patient: Internal Medicine: Result - Labs CBC & Chem 7: 01/24/19 05:21 01/24/19 05:21 Labs: Short CBC 01/23/19 01/24/19 Range/Units 10:46 05:21 WBC 15.1 H D 10.5 (4.3-11.1) K/mcL Hgb 12.5 L 10.9 L D (12.9-16.9) g/dL Hct 38.2 34.1 L (37.5-50.1) % Plt Count 179 128 L (140-400) K/mcL Neutrophils # 13.5 H 8.9 (1.6-8.9) K/mcL BMP 01/23/19 01/23/19 01/24/19 10:46 15:48 05:21 Sodium 132 L 134 L 137 Potassium 3.8 3.5 Chloride 96 L 100 Carbon Dioxide 26 27 BUN 8 6 L Creatinine 0.65 L 0.60 L Glucose 140 H 107 H Calcium 9.5 8.5 L Cardiac Enzymes 01/23/19 Range/Units 10:46 Troponin I < 0.03 (< 0.04) ng/mL Liver Function 01/23/19 Range/Units 10:46 Total Bilirubin 1.0 (0.3-1.0) mg/dL Direct Bilirubin 0.3 H (0.0-0.2) mg/dL AST 30 (13-39) Units/L ALT 18 (7-52) Units/L Alkaline Phosphatase 48 (34-104) Units/L Albumin 4.6 (3.5-5.7) g/dL Urine 01/23/19 Range/Units 11:41 Urine Color Yellow (Yellow) Urine Clarity Clear (Clear) Urine pH 6.5 (5.0-8.0) pH Units Ur Specific [place] 1.011 (1.010-1.025) Urine Protein 30 H (Neg-Trace) mg/dL Urine Glucose (UA) 100 H (Normal) mg/dL - Impressions Impressions Abdomen/Pelvis CT 01/23/19 10:30 IMPRESSION: Inflammatory changes of the abdomen as discussed. It is unclear whether this originates from focal colitis of the transverse colon, or from pancreatitis or duodenitis. If feasible consider follow-up CT angiogram of the abdomen as ischemic colitis would be of concern.. D/ / Rusty Navarro MD / Rusty Navarro MD Interpreting Provider: Rusty Navarro MD Chest X-Ray 01/23/19 10:30 IMPRESSION: Lucency underneath the right hemidiaphragm. Although this may represent colonic gas, possibility of bowel perforation is not excluded. Please refer to the CT abdomen and pelvis for further evaluation. Age indeterminate multiple right-sided rib fractures are new since previous examination on 10/23/2012. Clinical correlation is recommended for any history of trauma. No evidence of a focal consolidation, pneumothorax, or significant pleural effusion. D/ / 01/23/2019 10:59:01 Kelby Baig MD / dennis Interpreting Provider: Kelby Baig MD Abdomen/Pelvis CTA 01/23/19 11:26 IMPRESSION: 1. Acute pancreatitis without complicating event evident. Correlate with serum amylase/lipase. 2. Atherosclerosis with resultant mild narrowing of the proximal to mid superior mesenteric artery. No critical stenosis evident. 3. Probable reactive small volume pelvic ascites. 4. Diverticulosis coli without CT evidence of acute diverticulitis. D/ / Corbin Rizvi / Corbin Rizvi Interpreting Provider: Corbin Rizvi Consult Discharge Plan - Plan [facility]Primary Care Provider[facility] - - Attending Attestation I examined this patient and my medical decision-making was reviewed with the Resident Physician Dr Domingo. I agree with the documented findings, disposition and treatment plan as described except to the extent set forth below. Mr Arce is admitted with acute pancreatitis awake, + epigastric pain, improving. tolerable. no further nausea or vomiting. denies fevers or chills. states he is done with etoh bc having this is not worth it. denies palpitations, tremors. gen- alert, awake,appears stated age eyes- pupils equal round , no scleral icterus cv- reg rate and rhythm, normal s1,s2, lungs- ctabl, normaal resp effort on o2 nc abd- soft, non tender, non distended, + bs, no guarding to light palpation neuro- AAOx3, CN grossly intact, no tremor Acute pancreatitis suspect etoh related, r/o stone -cont IVFs, ice chips, awaiting RUQ US HTN, elevated above goal- pain control, home meds with exception of HCTZ, will require outpt fu s/p Hand surgery by Dr Hawthorne 01/22 for failed ligament reconstruction, without complication- cont to hold plavix today, scds no pharm vte ppx to avoid post op bleeding, will reach out to Dr Hawthorne Friday to confirm ok to resume Chronic anemia Chronic hyponatremia CAD/PVD- cont asa + statin + plavix as soon as confirmed by Dr Hawthorne further diagnoses and plan as noted by resident <Gale Domingo - Last Filed: 01/24/19 13:27> Hospitalist Progress Note - Encounter Date of Encounter: 01/24/19 Time of Encounter: 09:26 - Subjective Interval History: 63-year-old male with heavy history of alcohol use admitted for acute pancreatitis. Today the patient is resting more comfortably in bed as compared to yesterday. He reports continued abdominal pain but is significantly improved from admission. He denies fever, chills, nausea, vomiting. His only request is a little bit of ice chips. No symptoms of alcohol withdrawal. The patient's nurse stated that he has not required any Ativan. - Exam Vitals: Temp Pulse Resp BP Pulse Ox 98.4 F 76 15 144/80 91 01/24/19 06:38 01/24/19 06:38 01/24/19 06:38 01/24/19 06:38 01/24/19 06:38 Exam: Gen.: Vitals noted. Mild acute distress. AAOx3, appears diaphragmatic HEENT: oropharynx clear, Normocephalic, atraumatic Cardiac: RRR, no murmur, +S1/S2 Pulmonary: course breath sounds bilaterally and wheezes, no rales or rhonchi, equal chest expansion Abdomen: soft, epigastric in right upper quadrant tender, Bowel sounds noted, no guarding MSK: ROM intact, no joint swelling noted Extremities: no BLE edema, nontender calf, no cyanosis or clubbing Neuro: A&Ox3, moves all extremities, no focal deficits Psych: Appropriate mood and behavior - Assessment and Plan (1) Pancreatitis Current Visit: Yes Status: Acute Assessment and Plan: Pancreatitis demonstrated on abdominal CTA -patient has history of having one other episode of pancreatitis secondary to alcohol that do not require hospitalization. He has history of heavy alcohol use drinking 3 tallboy beers the day and 6 smaller beers on the weekend since 12 years old. -Differential for etiology of pancreatitis is alcoholism most likely. Patient is taking hydrocodone thiazide which can cause pancreatitis. Consider gallstones as he occasionally has biliary colic. Triglycerides in calcium WNL. -Lipase 767, yesterday 1016 -WBC 15.1 -lactic acid 1.9 -calcium 9.5 -triglycerides 58, lipid panel unremarkable -total bilirubin 1.0, direct bilirubin 0.3, LFT WNL, alkaline phosphatase 48 -[place] criteria: 1 -Abdominal/pelvis CTA showing acute pancreatitis without complication. -Patient reports significant improvement in epigastric pain however om palpation of abdomen he is still very tender especially in the epigastric and right upper quadrant region. Plan -continue aggressive IV fluid rehydration -continue NPO -omeprazole daily ordered -continue supportive care with PRN pain medication and Zofran -continue serial abdominal exams -hold hydrocothiazide -order a right upper quadrant ultrasound to evaluate for gallstones (2) Abdominal pain Current Visit: Yes Status: Acute Assessment and Plan: Most likely secondary to pancreatitis as seen on abdominal CTA. -There was no evidence on imaging of ischemic colitis and mesenteric ischemia. Not an acute abdomen on exam. -lactic acid 1.9 -lipase 767 -total bilirubin 1.0, direct bilirubin 0.3, LFT WNL, alkaline phosphatase 48 -Abdominal/pelvis CTA showing acute pancreatitis without complication. -Plan as above (3) Alcohol abuse Current Visit: Yes Status: Acute Assessment and Plan: He has history of heavy alcohol use drinking 3 tallboy beers the day and 6 smaller beers on the weekend since 12 years old. -He has been through alcohol withdrawal. Denied ever having seizures and Dts. -Does not feel that he is had withdrawal symptoms. Nurse has not had a give Ativan. -Continue CIWA protocol with Ativan -discussed alcohol cessation (4) COPD (chronic obstructive pulmonary disease) Current Visit: Yes Status: Acute Assessment and Plan: History of COPD. Not on oxygen. -Continue home inhaler -continue duoneb (5) Essential hypertension Current Visit: No Status: Chronic Assessment and Plan: History of hypertension taking hydrochlorothiazide, lisinopril, amlodipine -BP elevated 174/88 -Continue lisinopril and amlodipine -Lopressor IV PRN -hold hydrochlorothiazide as it can cause acute pancreatitis (6) Tobacco abuse Current Visit: No Status: Chronic Assessment and Plan: Smokes daily (7) CAD (coronary artery disease) Current Visit: Yes Status: Acute Assessment and Plan: history of coronary artery disease taking Plavix and aspirin. - Holding Plavix and aspirin due to patient's recent hand surgery. (8) Anemia Current Visit: Yes Status: Acute Assessment and Plan: Anemia that appears chronic and nature. May also be related to recent hand surgery. Hemoglobin at admission 12.5 -s/p Hand surgery by Dr Hawthorne yesterday for failed ligament reconstruction, without complication -hemoglobin 10 -baseline [id number] -MCV WNL -no obvious active bleeding -will continue to monitor (9) Hyponatremia Current Visit: Yes Status: Acute Assessment and Plan: Resolved Hyponatremia on admission sodium 132 -sodium 137 -magnesium 1.6 -likely due to poor oral intake due to alcoholism -appears chronic at baseline -patient received IV fluids in ED -magnesium supplemented -will repeat sodium level (10) DVT prophylaxis Current Visit: Yes Status: Acute Assessment and Plan: SCD - Time Spent with Patient Total time spent is greater than 50% in coordination of care (as documented) at patient's floor/unit and/or counseling patient: Internal Medicine: Result - Labs CBC & Chem 7: 01/24/19 05:21 01/24/19 05:21 Labs: Short CBC 01/23/19 01/24/19 Range/Units 10:46 05:21 WBC 15.1 H D 10.5 (4.3-11.1) K/mcL Hgb 12.5 L 10.9 L D (12.9-16.9) g/dL Hct 38.2 34.1 L (37.5-50.1) % Plt Count 179 128 L (140-400) K/mcL Neutrophils # 13.5 H 8.9 (1.6-8.9) K/mcL BMP 01/23/19 01/23/19 01/24/19 10:46 15:48 05:21 Sodium 132 L 134 L 137 Potassium 3.8 3.5 Chloride 96 L 100 Carbon Dioxide 26 27 BUN 8 6 L Creatinine 0.65 L 0.60 L Glucose 140 H 107 H Calcium 9.5 8.5 L Cardiac Enzymes 01/23/19 Range/Units 10:46 Troponin I < 0.03 (< 0.04) ng/mL Liver Function 01/23/19 Range/Units 10:46 Total Bilirubin 1.0 (0.3-1.0) mg/dL Direct Bilirubin 0.3 H (0.0-0.2) mg/dL AST 30 (13-39) Units/L ALT 18 (7-52) Units/L Alkaline Phosphatase 48 (34-104) Units/L Albumin 4.6 (3.5-5.7) g/dL Urine 01/23/19 Range/Units 11:41 Urine Color Yellow (Yellow) Urine Clarity Clear (Clear) Urine pH 6.5 (5.0-8.0) pH Units Ur Specific [place] 1.011 (1.010-1.025) Urine Protein 30 H (Neg-Trace) mg/dL Urine Glucose (UA) 100 H (Normal) mg/dL - Impressions Impressions Abdomen/Pelvis CT 01/23/19 10:30 IMPRESSION: Inflammatory changes of the abdomen as discussed. It is unclear whether this originates from focal colitis of the transverse colon, or from pancreatitis or duodenitis. If feasible consider follow-up CT angiogram of the abdomen as ischemic colitis would be of concern.. D/ / Rusty Navarro MD / Rusty Navarro MD Interpreting Provider: Rusty Navarro MD Chest X-Ray 01/23/19 10:30 IMPRESSION: Lucency underneath the right hemidiaphragm. Although this may represent colonic gas, possibility of bowel perforation is not excluded. Please refer to the CT abdomen and pelvis for further evaluation. Age indeterminate multiple right-sided rib fractures are new since previous examination on 10/23/2012. Clinical correlation is recommended for any history of trauma. No evidence of a focal consolidation, pneumothorax, or significant pleural effusion. D/ / 01/23/2019 10:59:01 Kelby Baig MD / dennis Interpreting Provider: Kelby Baig MD Abdomen/Pelvis CTA 01/23/19 11:26 IMPRESSION: 1. Acute pancreatitis without complicating event evident. Correlate with serum amylase/lipase. 2. Atherosclerosis with resultant mild narrowing of the proximal to mid superior mesenteric artery. No critical stenosis evident. 3. Probable reactive small volume pelvic ascites. 4. Diverticulosis coli without CT evidence of acute diverticulitis. D/ / Corbin Rizvi / Corbin Rizvi Interpreting Provider: Corbin Rizvi <Miladis Jackman Lisa - Last Filed: 01/24/19 10:40> (3) Pancreatitis Qualifiers: Chronicity: acute Pancreatitis type: alcohol induced Acute pancreatitis complication: unspecified Qualified Code(s): K85.20 - Alcohol induced acute pancreatitis without necrosis or infection (5) COPD (chronic obstructive pulmonary disease) Qualifiers: COPD type: chronic bronchitis Qualified Code(s): J42 - Unspecified chronic bronchitis (6) Abdominal pain Qualifiers: Abdominal location: epigastric Qualified Code(s): R10.13 - Epigastric pain (8) CAD (coronary artery disease) Qualifiers: Qualified Code(s): I25.10 - Atherosclerotic heart disease of [place] coronary artery without angina pectoris (9) Anemia Qualifiers: Anemia type: unspecified type Qualified Code(s): D64.9 - Anemia, unspecified <Gale Domingo - Last Filed: 01/24/19 13:27> (1) Pancreatitis Qualifiers: Chronicity: acute Pancreatitis type: alcohol induced Acute pancreatitis complication: unspecified Qualified Code(s): K85.20 - Alcohol induced acute pancreatitis without necrosis or infection (2) Abdominal pain Qualifiers: Abdominal location: epigastric Qualified Code(s): R10.13 - Epigastric pain (4) COPD (chronic obstructive pulmonary disease) Qualifiers: COPD type: chronic bronchitis Qualified Code(s): J42 - Unspecified chronic bronchitis (7) CAD (coronary artery disease) Qualifiers: Qualified Code(s): I25.10 - Atherosclerotic heart disease of [place] coronary artery without angina pectoris (8) Anemia Qualifiers: Anemia type: unspecified type Qualified Code(s): D64.9 - Anemia, unspecified
[2019-01-24] MEDS: Pregabalin 75 MG CAPSULE PO SCH (19:55)
[2019-01-24] MEDS: Melatonin 3 MG TABLET PO PRN (21:26)
[2019-01-24] MEDS: traZODone 50 MG TABLET PO SCH (21:27)
[2019-01-24] MEDS: Albuterol 2.5 MG/3 ML NEBULIZER IH SCH (22:12)
[2019-01-25] MEDS: Ringers Solution, Lactated 1,000 ML IVC SCH (02:25)
[2019-01-25] MEDS: Albuterol 2.5 MG/3 ML NEBULIZER IH SCH (03:58)
[2019-01-25] MEDS: OXYCODONE Oral CONC 10 MG/0.5 ML ORAL.SYG SL PRN ×2 (05:40→11:28)
[2019-01-25 06:43] LABS: Basophils % 0.1 %; Eosinophils % 0.3 %; Hematocrit 31.2 % (37.5-50.1); Hemoglobin 9.9 g/dL (12.9-16.9); Immature Granulocytes % 0.8 % (0-4); Lymphocytes # 0.7 K/mcL (0.6-4.6); Lymphocytes % 7.4 %; Mean Corpuscular HGB Conc 31.7 g/dL (31.6-35.5); Mean Corpuscular Hemoglobin 28.5 pg (28.0-33.3); Mean Corpuscular Volume 89.9 fL (83.0-100.0); Mean Platelet Volume 10.6 fL (9.4-12.4); Monocytes # 0.6 K/mcL (0.0-1.3); Monocytes % 5.8 %; Neutrophils # 8.1 K/mcL (1.6-8.9); Platelet Count 109 K/mcL (140-400); Red Blood Count 3.47 M/mcL (4.19-5.50); Red Cell Distribution Width 19.6 % (11.5-14.5); Segmented Neutrophils % 85.6 %; White Blood Count 9.5 K/mcL (4.3-11.1)
[2019-01-25 07:03] LABS: BUN/Creatinine Ratio 16 (6-26); Blood Urea Nitrogen 9 mg/dL (8-23); Calcium 8.3 mg/dL (8.6-10.3); Carbon Dioxide 29 mEq/L (23-29); Chloride 97 mEq/L (98-107); Glucose 105 mg/dL (70-105); Lipase 121 Units/L (11-82); Magnesium 1.4 mg/dL (1.6-2.6); Osmolality,Calculated 279 (280-300); Potassium 3.4 mEq/L (3.5-5.1); Sodium 135 mEq/L (136-145); eGFR For African Americans > 60 (> 60); eGFR For Non-African Americans > 60 (> 60)
[2019-01-25] MEDS: Tiotropium 18 MCG inhalation IH SCH (08:09)
--- NOTE | 2019-01-25 08:54 | Electrocardiograph Report ---
[facility] Test Date: 2019-01-23 Pat Name: Nahum Arce Department: EXAM6 Room: 3A22 Gender: M Community [employer] Specialist: : [id number] Requested By: Judah Cotter Order Number: [id number] Reading MD: Francisco Javier Sams Measurements Intervals [place] Rate: 73 P: 86 [place]: 140 QRS: 65 QRSD: 85 T: 72 QT: 428 QTc: 472 Interpretive Statements Sinus rhythm Multiple premature complexes, vent & supraven Left ventricular hypertrophy Electronically Signed On 01-25-2019 8:52:20 EDT by Francisco Javier Sams
[2019-01-25] MEDS ORDERED: Potassium Chloride 40 MEQ, Lidocaine 1% 2 ML in D5% in Water 500 ML IVPB ONE (08:57)
[2019-01-25] MEDS ORDERED: Furosemide 40 MG/4 ML VIAL IVP ONE (09:03)
--- NOTE | 2019-01-25 09:39 | Internal Med Progress Note ---
<Miladis Jackman - Last Filed: 01/25/19 12:38> Hospitalist Progress Note - Encounter Date of Encounter: 01/25/19 - Exam Vitals: Temp Pulse Resp BP Pulse Ox 98.8 F 79 16 142/85 91 01/25/19 10:37 01/25/19 10:37 01/25/19 10:37 01/25/19 10:37 01/25/19 10:37 - Assessment and Plan (1) Essential hypertension Current Visit: No Status: Chronic (2) Tobacco abuse Current Visit: No Status: Chronic (3) Pancreatitis Current Visit: Yes Status: Acute (4) Alcohol abuse Current Visit: Yes Status: Acute (5) COPD (chronic obstructive pulmonary disease) Current Visit: Yes Status: Acute (6) Abdominal pain Current Visit: Yes Status: Acute (7) DVT prophylaxis Current Visit: Yes Status: Acute (8) CAD (coronary artery disease) Current Visit: Yes Status: Acute (9) Anemia Current Visit: Yes Status: Acute (10) Hyponatremia Current Visit: Yes Status: Acute - Time Spent with Patient Total time spent is greater than 50% in coordination of care (as documented) at patient's floor/unit and/or counseling patient: Internal Medicine: Result - Labs CBC & Chem 7: 01/25/19 06:18 01/25/19 06:18 Labs: Short CBC 01/25/19 Range/Units 06:18 WBC 9.5 (4.3-11.1) K/mcL Hgb 9.9 L (12.9-16.9) g/dL Hct 31.2 L (37.5-50.1) % Plt Count 109 L (140-400) K/mcL Neutrophils # 8.1 (1.6-8.9) K/mcL BMP 01/25/19 06:18 Sodium 135 L Potassium 3.4 L Chloride 97 L Carbon Dioxide 29 BUN 9 Creatinine 0.58 L Glucose 105 Calcium 8.3 L - Impressions Impressions Chest X-Ray 01/23/19 10:30 IMPRESSION: 1. Lucency underneath the right hemidiaphragm. Although this may represent colonic gas, possibility of bowel perforation is not excluded. Please refer to the CT abdomen and pelvis for further evaluation (already ordered) 2. Age indeterminate multiple right-sided rib fractures are new since previous examination on 10/23/2012. Clinical correlation is recommended for any history of trauma. 3. No evidence of a focal consolidation, pneumothorax, or significant pleural effusion. D/ : / 01/23/2019 10:59:01 Kelby Baig MD / dennis Interpreting Provider: Kelby Baig MD Chest X-Ray 01/25/19 07:27 IMPRESSION: 1. Interval appearance of bibasilar opacities. 2. Small left effusion. 3. COPD. D/ / 01/25/2019 08:05:03 Madelaine Maher MD / thais Interpreting Provider: Madelaine Maher MD Gallbladder Ultrasound 01/25/19 09:00 IMPRESSION: Pancreas not visualized due to overlying bowel gas. Small amount of perihepatic ascites adjacent to the inferior border liver. No cholelithiasis or cholecystitis. D/ / Alexandre Truong MD / Alexandre Truong MD Interpreting Provider: Alexandre Truong MD Abdomen/Pelvis CT 01/25/19 09:01 IMPRESSION: No evidence for bowel obstruction. There is mild gaseous distension of the large bowel which may be secondary to an ileus. Ascites and a small amount of inflammatory changes seen within the right upper quadrant. Differential diagnostic possibilities include changes from patient's pancreatitis or possible ischemic infarct of the mesentery. Ascites. Mild bilateral wall thickening which may be secondary to a cystitis. D/ / 01/25/2019 10:02:15 Cecil Thurman MD / thais Interpreting Provider: Cecil Thurman MD Consult Discharge Plan - Plan [facility]errals: [facility] Care Provider[facility] - - Attending Attestation I examined this patient and my medical decision-making was reviewed with the Resident Physician Dr Menchaca. I agree with the documented findings, disposition and treatment plan as described except to the extent set forth below. Mr Arce is admitted with acute pancreatitis awake, + abd distension, no nausea, no emesis, no bm. pain improved. very hungry. admitting to + cough outpt prior to admission with yellow sputum. cup with sputum, yellow at bedside with small amount red blood. states he was coughing very hard to get that up. no blood in sputum prior. nuing noted he was sob and had him on 6L NC at about 630 am. CXR obtained that showed pna. he is stable on room air at this time gen- alert, awake,appears stated age cv- reg rate and rhythm, normal s1,s2, lungs- ctabl, diminished bases, normal resp effort on room air abd- soft, non tender,+ distended, + bs, no guarding neuro- AAOx3 Acute pancreatitis, improving suspect etoh related CT a/p today reviewed- no obstrution, + possible ileus + pancreatitis, lipase significantly down trended and clinically improving -clears, bowel regimen Bibasilar pna, organism uk- rocephin + azithro, single episode sputum with red blood with coughing episode, cont to monitor, if continues will get pulm on board and CT chest- holding plavix Hypomagnesemia- IV mag s/p Hand surgery by Dr Hawthorne 01/22 for failed ligament reconstruction, without complication- will discuss when ok to resume from surg standpoint Chronic anemia- cont to down trend with ivfs and lab draws, ivfs off, if cont to down trend will begin gi work up further diagnoses and plan as noted by resident <Ana Menchaca - Last Filed: 01/25/19 19:40> Hospitalist Progress Note - Encounter Date of Encounter: 01/25/19 Time of Encounter: 09:39 - Subjective Interval History: Patient was seen and examined at bedside this morning. He was in no acute distress. This morning he did note that he felt as if his abdomen was distended. He states that he has not had a bowel movement nor has he passed gas since 5 days ago. He did recently have surgery on his left arm by Dr. Hawthorne and was told to be nothing by mouth prior to that procedure 5 days ago. Since then he has not eaten much, because after procedure, patient began experiencing a bdominal pain and came in for pancreatitis. He otherwise notes that he has been coughing up some whiteyellow-colored sputum recently. She did have one episode where he coughed up some blood. Otherwise, he states that he is comfortable. Notes that he would like to have his diet advanced today. Vitals and lab work were benign. Potassium and magnesium were replaced this morning. Lipase is imp roving. IV fluids were discontinued. Of note, patient's right upper quadrant ultrasound did not show any acute pathology of the gallbladder. Additionally, CT of the abdomen and pelvis did not show small bowel obstruction, but did show signs of ileus. Patient was given Colace plus senna to stimulate his bowels. Finally, patient's chest x-ray did show bibasilar infiltrates suggestive of pneumonia. Patient was started on azithromycin and ceftriaxone. - Exam Vitals: Temp Pulse Resp BP Pulse Ox 98.8 F 82 16 129/75 83 01/25/19 06:33 01/25/19 06:33 01/25/19 08:09 01/25/19 06:33 01/25/19 08:09 Exam: GEN: Pleasant 63-year-old male resting comfortably at bedside. Vitals stable. No acute distress. AAOx3 HEENT: Atraumatic, Normocephalic, PERRLA, EOMI NECK: Supple, no lymphadenopathy, no JVD CARDIAC: RRR, s1 and s2 present, no murmurs, rubs, gallops PULM: CTAB, not in respiratory distress, no wheezes, rales, crackles, rhonchi ABD: Mild distention, mild tenderness in the epigastric region. Otherwise soft, no guarding or rebound tenderness. Bowel sounds present EXT: No peripheral edema. No calf tenderness, cyanosis, clubbing. Bandaged left upper extremity. NEURO: CN 2-12 grossly intact. No focal neurologic deficits. Follows commands PSYCH: Appropriate mood and affect - Assessment and Plan (1) Pancreatitis Current Visit: Yes Status: Acute Assessment and Plan: This is a 63-year-old male who past medical history significant for CAD, COPD, [place] who presented from the [facility] due to abdominal pain. - Notes sharp abdominal pain which began the night before presentation. Associated with nausea. History of pancreatitis in the past, but notes this is more severe - History of alcoholism. Notes that he drinks on a daily basis. Drinks at least 3 beers, but opted 8 beers per day; Also notes that he is a daily smoker - In the ED, patient noted to be hypertensive. BP = 207/90 - Initial labs: Lipase = 1016, WBC = 15.1, lactic acid = 1.9. - CT of the abdomen and pelvis did show acute pancreatitis without complications - Status post 2 L IV fluids, morphine, fentanyl, Zofran in the ED - Patient notes that he is feeling much improved as of today. Pain is significantly improved. He does have mild tenderness to palpation over the epigastric region of the abdomen. He also notes that he was distended today. - Lipase = 1016=>776=>121 - Right upper quadrant ultrasound (01/25/19): Small amount of perihepatic ascites. No cholelithiasis and no cholecystitis - CT of abdomen and pelvis (01/25/19): No evidence of bowel obstruction. Mild gaseous distention of large bowel suggest possible ileus. Evidence of ascites. PLAN: Patient initially presented with signs and symptoms of ascites as shown on CT of the abdomen and pelvis. Pain has improved. Lipase value continues to improve. - IV fluids discontinued today - Patient was switched to clear liquid diet today - Continue Protonix twice a day - Pain and nausea control as needed - Serial abdominal exams - Colace plus senna given due to possible ileus. Ileus likely given patient recently had orthopedic surgery on his left upper extremity - Monitor for worsening white count and/or fever - Advance diet slowly as tolerated - Ambulate as tolerated to encourage bowel movements (2) Abdominal pain Current Visit: Yes Status: Acute Assessment and Plan: Plan as above (3) Alcohol abuse Current Visit: Yes Status: Acute Assessment and Plan: Patient describes heavy alcohol use, daily. Notes he has been drinking since he was 12 years old - History of alcohol withdrawal. However currently denies being in withdrawal. Denies having seizures or delirium tremens in the past - With current route of pancreatitis, patient about that he will never drink again PLAN: - CIWA protocol - Ativan as needed with CIWA protocol - Encourage alcohol cessation (4) Community acquired pneumonia Current Visit: Yes Status: Acute Assessment and Plan: Chest x-ray (01/25/19): Interval appearance of bibasilar opacities, small left effusion, COPD - Patient notes recent cough productive of white/yellow sputum PLAN: - Patient showing signs of possible community-acquired pneumonia, supported with chest x-ray - We will start on Rocephin and azithromycin - Follow sputum culture - Continue to monitor for leukocytosis or fevers - Supplemental oxygen as tolerated. Patient was weaned off oxygen today. - Monitor for worsening signs and symptoms (5) COPD (chronic obstructive pulmonary disease) Current Visit: Yes Status: Acute Assessment and Plan: History of COPD not on home oxygen PLAN: - Supplement oxygen as needed - DuoNeb's as needed - Otherwise home inhalers - Encourage smoking cessation (6) Tobacco abuse Current Visit: No Status: Chronic Assessment and Plan: Daily smoker PLAN: - Encourage smoking cessation - Continue Chantix (7) Essential hypertension Current Visit: No Status: Chronic Assessment and Plan: History of hypertension PLAN: - Continue home hypertension medications including amlodipine, lisinopril, Lopressor - Monitor BPs - Hold hydrochlorothiazide as it can exacerbate pancreatitis (8) CAD (coronary artery disease) Current Visit: Yes Status: Acute Assessment and Plan: History of CAD on aspirin and Plavix - Both were held due to patient's recent hand surgery PLAN: - Follow up with orthopedic hand surgeon regarding resumption of Plavix - Continue aspirin (9) DVT prophylaxis Current Visit: Yes Status: Acute Assessment and Plan: PLAN: - SCDs DVT Prophylaxis: SCDs - Time Spent with Patient Total time spent is greater than 50% in coordination of care (as documented) at patient's floor/unit and/or counseling patient: less than 15 minutes Plan of Care Discussed with: patient Internal Medicine: Result - Labs CBC & Chem 7: 01/25/19 06:18 01/25/19 06:18 Labs: Short CBC 01/25/19 Range/Units 06:18 WBC 9.5 (4.3-11.1) K/mcL Hgb 9.9 L (12.9-16.9) g/dL Hct 31.2 L (37.5-50.1) % Plt Count 109 L (140-400) K/mcL Neutrophils # 8.1 (1.6-8.9) K/mcL BMP 01/25/19 06:18 Sodium 135 L Potassium 3.4 L Chloride 97 L Carbon Dioxide 29 BUN 9 Creatinine 0.58 L Glucose 105 Calcium 8.3 L - Impressions Impressions Chest X-Ray 01/23/19 10:30 IMPRESSION: 1. Lucency underneath the right hemidiaphragm. Although this may represent colonic gas, possibility of bowel perforation is not excluded. Please refer to the CT abdomen and pelvis for further evaluation (already ordered) 2. Age indeterminate multiple right-sided rib fractures are new since previous examination on 10/23/2012. Clinical correlation is recommended for any history of trauma. 3. No evidence of a focal consolidation, pneumothorax, or significant pleural effusion. D/ /23/2019 10:59:01 Kelby Baig MD / dennis Interpreting Provider: Kelby Baig MD Chest X-Ray 01/25/19 07:27 IMPRESSION: 1. Interval appearance of bibasilar opacities. 2. Small left effusion. 3. COPD. D/ /25/2019 08:05:03 Madelaine Maher MD / thais Interpreting Provider: Madelaine Maher MD Gallbladder Ultrasound 01/25/19 09:00 IMPRESSION: Pancreas not visualized due to overlying bowel gas. Small amount of perihepatic ascites adjacent to the inferior border liver. No cholelithiasis or cholecystitis. D/ / Alexandre Truong MD / Alexandre Truong MD Interpreting Provider: Alexandre Truong MD ___ <Miladis Jackman - Last Filed: 01/25/19 12:38> (3) Pancreatitis Qualifiers: Chronicity: acute Pancreatitis type: alcohol induced Acute pancreatitis complication: unspecified Qualified Code(s): K85.20 - Alcohol induced acute pancreatitis without necrosis or infection (5) COPD (chronic obstructive pulmonary disease) Qualifiers: COPD type: chronic bronchitis Qualified Code(s): J42 - Unspecified chronic bronchitis (6) Abdominal pain Qualifiers: Abdominal location: epigastric Qualified Code(s): R10.13 - Epigastric pain (8) CAD (coronary artery disease) Qualifiers: Qualified Code(s): I25.10 - Atherosclerotic heart disease of [place] coronary artery without angina pectoris (9) Anemia Qualifiers: Anemia type: unspecified type Qualified Code(s): D64.9 - Anemia, unspecified <Ana Menchaca - Last Filed: 01/25/19 19:40> (1) Pancreatitis Qualifiers: Chronicity: acute Pancreatitis type: alcohol induced Acute pancreatitis complication: unspecified Qualified Code(s): K85.20 - Alcohol induced acute pancreatitis without necrosis or infection (2) Abdominal pain Qualifiers: Abdominal location: epigastric Qualified Code(s): R10.13 - Epigastric pain (4) Community acquired pneumonia Qualifiers: Laterality: unspecified laterality Qualified Code(s): J18.9 - Pneumonia, unspecified organism (5) COPD (chronic obstructive pulmonary disease) Qualifiers: COPD type: chronic bronchitis Chronic bronchitis type: unspecified Qualified Code(s): J42 - Unspecified chronic bronchitis (8) CAD (coronary artery disease) Qualifiers: Coronary Disease-Associated Artery/Lesion type: unspecified vessel or lesion t ype [place] vs. transplanted heart: unspecified whether [place] or transplanted heart Associated angina: angina presence unspecified Qualified Code(s): I25.10 - Atherosclerotic heart disease of [place] coronary artery without angina pectoris
[2019-01-25] MEDS: amLODIPine 5 MG TABLET PO SCH (10:49)
[2019-01-25] MEDS: Lisinopril 20 MG TABLET PO SCH (10:49)
[2019-01-25] MEDS: Folic Acid 1 MG TABLET PO SCH (10:50)
[2019-01-25] MEDS: Aspirin Enteric Coated 81 MG Tablet PO SCH (10:50)
[2019-01-25] MEDS: Multivit/Ca/Min/Fe/FA 1 TAB TABLET PO SCH (10:54)
[2019-01-25] MEDS: Thiamine (B-1) 100 MG TABLET PO SCH (10:54)
[2019-01-25] MEDS: Venlafaxine XR (24 HR) 75 MG CAP.ER.24H PO SCH (10:54)
[2019-01-25] MEDS: Pregabalin 75 MG CAPSULE PO SCH ×2 (10:54→21:10)
[2019-01-25] MEDS ORDERED: Azithromycin 500 MG in D5% in Water 250 ML IVPB ONE (12:47)
[2019-01-25] MEDS ORDERED: traZODone 50 MG TABLET PO PRN (14:52)
[2019-01-25] MEDS: cefTRIAXone 1,000 MG in Water for inj. (sterile) 20 ML 10 ML IVP SCH (15:48)
[2019-01-25] MEDS: Sennosides 8.6 MG TABLET PO SCH (15:51)
[2019-01-25] MEDS: Pantoprazole 40 MG VIAL IVP SCH (18:44)
[2019-01-26] MEDS: OXYCODONE Oral CONC 10 MG/0.5 ML ORAL.SYG SL PRN ×3 (01:42→22:48)
[2019-01-26 04:02] LABS: Basophils % 0.2 %; Eosinophils # 0.2 K/mcL (0.0-0.6); Eosinophils % 1.8 %; Hematocrit 30.2 % (37.5-50.1); Hemoglobin 9.7 g/dL (12.9-16.9); Immature Granulocytes % 0.4 % (0-4); Lymphocytes # 0.8 K/mcL (0.6-4.6); Lymphocytes % 9.8 %; Mean Corpuscular HGB Conc 32.1 g/dL (31.6-35.5); Mean Corpuscular Volume 90.1 fL (83.0-100.0); Mean Platelet Volume 10.3 fL (9.4-12.4); Monocytes # 0.5 K/mcL (0.0-1.3); Monocytes % 6.6 %; Neutrophils # 6.7 K/mcL (1.6-8.9); Platelet Count 104 K/mcL (140-400); Red Blood Count 3.35 M/mcL (4.19-5.50); Red Cell Distribution Width 19.3 % (11.5-14.5); Segmented Neutrophils % 81.2 %; White Blood Count 8.2 K/mcL (4.3-11.1)
[2019-01-26 04:21] LABS: BUN/Creatinine Ratio 18 (6-26); Blood Urea Nitrogen 10 mg/dL (8-23); Calcium 7.9 mg/dL (8.6-10.3); Carbon Dioxide 30 mEq/L (23-29); Chloride 96 mEq/L (98-107); Glucose 98 mg/dL (70-105); Magnesium 1.7 mg/dL (1.6-2.6); Osmolality,Calculated 273 (280-300); Phosphorous 2.6 mg/dL (2.7-4.5); Potassium 3.4 mEq/L (3.5-5.1); Sodium 132 mEq/L (136-145); eGFR For African Americans > 60 (> 60); eGFR For Non-African Americans > 60 (> 60)
[2019-01-26] MEDS: Pantoprazole 40 MG VIAL IVP SCH ×2 (05:42→17:46)
[2019-01-26] MEDS: Tiotropium 18 MCG inhalation IH SCH (07:21)
[2019-01-26] MEDS ORDERED: Ipratropium Neb 0.5 MG NEBULIZER IH PRN (08:03)
[2019-01-26] MEDS ORDERED: OXYCODONE Oral CONC 10 MG/0.5 ML ORAL.SYG SL PRN (08:05)
[2019-01-26] MEDS ORDERED: Potassium Chloride Elixir 20 MEQ/15 ML UDC PO ONE (08:06)
--- NOTE | 2019-01-26 08:13 | Internal Med Progress Note ---
<Miladis Jackman - Last Filed: 01/26/19 13:25> Hospitalist Progress Note - Encounter Date of Encounter: 01/26/19 - Exam Vitals: Temp Pulse Resp BP Pulse Ox 97.5 F L 73 18 114/73 94 01/26/19 10:35 01/26/19 10:35 01/26/19 10:35 01/26/19 10:35 01/26/19 10:35 - Assessment and Plan (1) Essential hypertension Current Visit: No Status: Chronic (2) Tobacco abuse Current Visit: No Status: Chronic (3) Pancreatitis Current Visit: Yes Status: Acute (4) Alcohol abuse Current Visit: Yes Status: Acute (5) COPD (chronic obstructive pulmonary disease) Current Visit: Yes Status: Acute (6) Abdominal pain Current Visit: Yes Status: Acute (7) DVT prophylaxis Current Visit: Yes Status: Acute (8) CAD (coronary artery disease) Current Visit: Yes Status: Acute (9) Anemia Current Visit: Yes Status: Acute (10) Hyponatremia Current Visit: Yes Status: Acute - Time Spent with Patient Total time spent is greater than 50% in coordination of care (as documented) at patient's floor/unit and/or counseling patient: Internal Medicine: Result - Labs CBC & Chem 7: 01/26/19 03:45 01/26/19 03:45 Labs: Short CBC 01/26/19 Range/Units 03:45 WBC 8.2 (4.3-11.1) K/mcL Hgb 9.7 L (12.9-16.9) g/dL Hct 30.2 L (37.5-50.1) % Plt Count 104 L (140-400) K/mcL Neutrophils # 6.7 (1.6-8.9) K/mcL BMP 01/26/19 03:45 Sodium 132 L Potassium 3.4 L Chloride 96 L Carbon Dioxide 30 H BUN 10 Creatinine 0.57 L Glucose 98 Calcium 7.9 L - Impressions Impressions Chest X-Ray 01/25/19 07:27 IMPRESSION: 1. Interval appearance of bibasilar opacities. 2. Small left effusion. 3. COPD. D/ / 01/25/2019 08:05:03 Madelaine Maher MD / thais Interpreting Provider: Madelaine Maher MD Chest CTA 01/26/19 08:50 IMPRESSION: 1. No pulmonary embolus. 2. Pulmonary edema as evidenced by ground-glass opacities and bilateral pleural effusions. 3. Dependent atelectasis secondary to airway secretions/occlusion in the bilateral lower lobes which may represent acute bronchitis. 4. Severe emphysema. D/ / 01/26/2019 11:08:38 Madelaine Maher MD / mari Interpreting Provider: Madelaine Maher MD Consult Discharge Plan - Plan Referrals: [facility] [Outside] - Attending Attestation I examined this patient and my medical decision-making was reviewed with the Resident Physician Dr Menchaca. I agree with the documented findings, disposition and treatment plan as described except to the extent set forth below. Mr Arce is admitted with acute pancreatitis awake, abd pain improved. no n/v. tolerating current diet without issue. He r equired high flow NC overnight. staff noted he kept removing o2 overnight and desatting. currently on high flow 8L. Pt doesn't use o2 at home . admits he probably needs it with his copd and that for quite sometime he is sob at home and gradually over time it has progressed. + yellow sputum today, no blood, no chest pain. denies wheezing. agreeable to ct chest. no bm but + flatus and no distension today gen- alert, awake,appears stated age cv- reg rate and rhythm, normal s1,s2,no le edema lungs- diminished bases, faint crackles, normal resp effort on high flow nc abd- soft, non tender,+ distended, + bs, no guarding neuro- AAOx3 Acute pancreatitis, improving suspect etoh related -fulls, bowel regimen for ileus Bibasilar pna, with effusion ,organism uk- rocephin + azithro for CAP Bibasilar plueral effusion suspect 2/2 pna and pancreatitis- no echo on review, check echo Acute hypoxic resp failure- cont o2, CTA chest with pna and bibasilar effusions, no PE, no mass, steroids, lasix, nebs, abx above s/p Hand surgery by Dr Hawthorne 01/22 for failed ligament reconstruction, without complication- he will visit pt, ok to resume plavix Chronic anemia- stable off ivfs, if cont to down trend will begin gi work up Hypokalemia- repletion and monitor Hypophosphatemia- po neutra phos further diagnoses and plan as noted by resident <Ana Menchaca - Last Filed: 01/26/19 14:19> Hospitalist Progress Note - Encounter Date of Encounter: 01/26/19 Time of Encounter: 08:13 - Subjective Interval History: Patient was seen and examined at bedside this morning. She is currently is in no acute distress. However it was noted that patient required 8 L of oxygen via high flow nasal cannula overnight. Patient is not in any respiratory distress at this time, but he states that his oxygen dropped into the 70s last evening when his oxygen was weaned down. Given increased oxygen requirements, CTA chest was done which showed no acute pulmonary embolism, but did show pulmonary edema with bilateral pleural effusions, atelectasis, severe emphysema. Patient was started on prednisone 40 mg daily, scheduled duo nebs, and Lasix 20 mg every day. We will follow-up with that echo to rule out any cardiac pathology causing bilateral pleural effusions. Otherwise, patient has no acute complaints. His abdominal pain is improving. He is yet to have a bowel movement, but is passing gas. He is tolerating diet without nausea or vomiting. Vitals are stable. Magnesium, phosphate, potassium were replaced this morning. - Exam Vitals: Temp Pulse Resp BP Pulse Ox 97.6 F 75 18 115/75 92 01/26/19 06:58 01/26/19 06:58 01/26/19 07:22 01/26/19 06:58 01/26/19 07:22 Exam: GEN: Pleasant 63-year-old male resting comfortably in bed in no acute distress. Vitals stable. AAOx3 HEENT: Atraumatic, Normocephalic, PERRLA, EOMI NECK: Supple, no lymphadenopathy, no JVD CARDIAC: RRR, s1 and s2 present, no murmurs, rubs, gallops PULM: Decreased lung sounds at the bilateral lung bases left greater than right, but not in respiratory distress, no wheezes, rales, rhonchi; requiring 8 L of oxygen via high flow nasal cannula to maintain O2 saturation ABD: Soft, mild tenderness to palpation in the epigastric region, non- distended, no guarding or rebound tenderness. Bowel sounds present EXT: No peripheral edema. No calf tenderness, cyanosis, clubbing NEURO: CN 2-12 grossly intact. No focal neurologic deficits. Follows commands PSYCH: Appropriate mood and affect - Assessment and Plan (1) Pancreatitis Current Visit: Yes Status: Acute Assessment and Plan: This is a 63-year-old male who past medical history significant for CAD, COPD, [place] [facility] - Notes sharp abdominal pain which began the night before presentation. Associated with nausea. History of pancreatitis in the past, but notes this is more severe - History of alcoholism. Notes that he drinks on a daily basis. Drinks at least 3 beers, but opted 8 beers per day; Also notes that he is a daily smoker - In the ED, patient noted to be hypertensive. BP = 207/90 - Initial labs: Lipase = 1016, WBC = 15.1, lactic acid = 1.9. - CT of the abdomen and pelvis did show acute pancreatitis without complications - Status post 2 L IV fluids, morphine, fentanyl, Zofran in the ED - Patient notes that he is feeling much improved as of today. Pain is significantly improved. He does have mild tenderness to palpation over the epigastric region of the abdomen. He also notes that he was distended today. - Lipase = 1016=>776=>121 - Right upper quadrant ultrasound (01/25/19): Small amount of perihepatic ascites. No cholelithiasis and no cholecystitis - CT of abdomen and pelvis (01/25/19): No evidence of bowel obstruction. Mild gaseous distention of large bowel suggest possible ileus. Evidence of ascites. PLAN: Patient initially presented with signs and symptoms of pancreatitis as shown on CT of the abdomen and pelvis. Pain has improved. Lipase value continues to improve. - IV fluids discontinued today - Patient advanced to full liquid diet; has yet to have bowel movement, but is passing gas - Continue Protonix twice a day - Pain and nausea control as needed - Serial abdominal exams - Colace plus senna given due to possible ileus. Ileus likely given patient recently had orthopedic surgery on his left upper extremity - Monitor for worsening white count and/or fever - Advance diet slowly as tolerated - Ambulate as tolerated to encourage bowel movements - Patient had hypokalemia, hypomagnesemia, hypophosphatemia this morning. Electrolytes were repeated. Continue to monitor electrolytes. (2) Abdominal pain Current Visit: Yes Status: Acute Assessment and Plan: Plan as above (3) Alcohol abuse Current Visit: Yes Status: Acute Assessment and Plan: Patient describes heavy alcohol use, daily. Notes he has been drinking since he was 12 years old - History of alcohol withdrawal. However currently denies being in withdrawal. Denies having seizures or delirium tremens in the past - With current route of pancreatitis, patient about that he will never drink again PLAN: - [facility] protocol - Ativan as needed with [facility] protocol - Encourage alcohol cessation (4) Acute respiratory failure with hypoxia Current Visit: Yes Status: Acute Assessment and Plan: Patient was been noted to have increased oxygen requirement over the past 2 days of admission - Overnight was noted to require an liters of oxygen via high flow nasal cannula to maintain O2 saturations - Initial chest x-ray (01/23/19): Showed no evidence of focal consolidation, pneumothorax, pleural effusion - Repeat chest x-ray (01/25/19): Interval appearance of bibasilar opacities. Small left pleural effusion. COPD - CTA chest (01/26/19): No pulmonary embolus. Pulmonary edema with evidence of groundglass opacities and bilateral pleural effusions. Atelectasis secondary to a recent creation/occlusion and bilateral lower lobes. Severe emphysema. - Patient does remain afebrile without leukocytosis PLAN: - Patient seems ago developed acute respiratory failure with hypoxia. Likely secondary to fluid overload for treatment of acute pancreatitis. However, may b e component of COPD exacerbation and/or pneumonia, or even undiagnosed CHF. - Continue with supplemental oxygen as needed; titrate to keep oxygen saturation greater than 92% - Monitor for signs and symptoms of worsening respiratory distress or hypoxia - Start prednisone 40 mg daily - Scheduled DuoNeb nebs every 6 hours - Lasix 20 mg daily - Strict I's and O's, and daily weights - Encourage incentive spirometry - Follow up results of echocardiography - Continue with antibiotics, azithromycin and Rocephin (5) Community acquired pneumonia Current Visit: Yes Status: Acute Assessment and Plan: Chest x-ray (01/25/19): Interval appearance of bibasilar opacities, small left effusion, COPD - Patient notes recent cough productive of white/yellow sputum PLAN: - Patient showing signs of possible community-acquired pneumonia, supported with chest x-ray - Continue Rocephin and azithromycin - Follow sputum culture - Continue to monitor for leukocytosis or fevers - Supplemental oxygen as needed - Monitor for worsening signs and symptoms (6) COPD (chronic obstructive pulmonary disease) Current Visit: Yes Status: Acute Assessment and Plan: History of COPD not on home oxygen - Worsening respiratory symptoms over the past 2 days. May be secondary to fluid overload, pneumonia, or COPD exacerbation PLAN: - Supplement oxygen as needed - Scheduled DuoNeb's - Daily prednisone - Otherwise home inhalers - Encourage incentive spirometry - Encourage smoking cessation (7) Tobacco abuse Current Visit: No Status: Chronic Assessment and Plan: Daily smoker PLAN: - Encourage smoking cessation - Continue Chantix (8) Essential hypertension Current Visit: No Status: Chronic Assessment and Plan: History of hypertension PLAN: - Continue home hypertension medications including amlodipine, lisinopril, Lopressor - Monitor BPs - Hold hydrochlorothiazide as it can exacerbate pancreatitis (9) CAD (coronary artery disease) Current Visit: Yes Status: Acute Assessment and Plan: History of CAD on aspirin and Plavix PLAN: - Continue with both aspirin and Plavix. - Follow up echocardiography given bilateral pleural effusions (10) DVT prophylaxis Current Visit: Yes Status: Acute Assessment and Plan: PLAN: - SCDs DVT Prophylaxis: SCDs - Time Spent with Patient Total time spent is greater than 50% in coordination of care (as documented) at patient's floor/unit and/or counseling patient: less than 15 minutes Plan of Care Discussed with: patient Internal Medicine: Result - Labs CBC & Chem 7: 01/26/19 03:45 01/26/19 03:45 Labs: Short CBC 01/26/19 Range/Units 03:45 WBC 8.2 (4.3-11.1) K/mcL Hgb 9.7 L (12.9-16.9) g/dL Hct 30.2 L (37.5-50.1) % Plt Count 104 L (140-400) K/mcL Neutrophils # 6.7 (1.6-8.9) K/mcL BMP 01/26/19 03:45 Sodium 132 L Potassium 3.4 L Chloride 96 L Carbon Dioxide 30 H BUN 10 Creatinine 0.57 L Glucose 98 Calcium 7.9 L - Impressions Impressions Chest X-Ray 01/25/19 07:27 IMPRESSION: 1. Interval appearance of bibasilar opacities. 2. Small left effusion. 3. COPD. D/ / 01/25/2019 08:05:03 Madelaine Maher MD / thais Interpreting Provider: Madelaine Maher MD Gallbladder Ultrasound 01/25/19 09:00 IMPRESSION: Pancreas not visualized due to overlying bowel gas. Small amount of perihepatic ascites adjacent to the inferior border liver. No cholelithiasis or cholecystitis. D/ / Alexandre Truong MD / Alexandre Truong MD Interpreting Provider: Alexandre Truong MD Abdomen/Pelvis CT 01/25/19 09:01 IMPRESSION: No evidence for bowel obstruction. There is mild gaseous distension of the large bowel which may be secondary to an ileus. Ascites and a small amount of inflammatory changes seen within the right upper quadrant. Differential diagnostic possibilities include changes from patient's pancreatitis or possible ischemic infarct of the mesentery. Ascites. Mild bilateral wall thickening which may be secondary to a cystitis. D/ / 01/25/2019 10:02:15 Cecil Thurman MD / thais Interpreting Provider: Cecil Thurman MD _ <Miladis Jackman - Last Filed: 01/26/19 13:25> (3) Pancreatitis Qualifiers: Chronicity: acute Pancreatitis type: alcohol induced Acute pancreatitis complication: unspecified Qualified Code(s): K85.20 - Alcohol induced acute pancreatitis without necrosis or infection (5) COPD (chronic obstructive pulmonary disease) Qualifiers: COPD type: chronic bronchitis Chronic bronchitis type: unspecified Qualified Code(s): J42 - Unspecified chronic bronchitis (6) Abdominal pain Qualifiers: Abdominal location: epigastric Qualified Code(s): R10.13 - Epigastric pain (8) CAD (coronary artery disease) Qualifiers: Coronary Disease-Associated Artery/Lesion type: unspecified vessel or lesion type [place] vs. transplanted heart: unspecified whether [place] or transplanted heart Associated angina: angina presence unspecified Qualified Code(s): I25.10 - Atherosclerotic heart disease of [place] coronary artery without angina pectoris (9) Anemia Qualifiers: Anemia type: unspecified type Qualified Code(s): D64.9 - Anemia, unspecified <Ana Menchaca - Last Filed: 01/26/19 14:19> (1) Pancreatitis Qualifiers: Chronicity: acute Pancreatitis type: alcohol induced Acute pancreatitis complication: unspecified Qualified Code(s): K85.20 - Alcohol induced acute pancreatitis without necrosis or infection (2) Abdominal pain Qualifiers: Abdominal location: epigastric Qualified Code(s): R10.13 - Epigastric pain (5) Community acquired pneumonia Qualifiers: Laterality: unspecified laterality Qualified Code(s): J18.9 - Pneumonia, unspecified organism (6) COPD (chronic obstructive pulmonary disease) Qualifiers: COPD type: chronic bronchitis Chronic bronchitis type: unspecified Qualified Code(s): J42 - Unspecified chronic bronchitis (9) CAD (coronary artery disease) Qualifiers: Coronary Disease-Associated Artery/Lesion type: unspecified vessel or lesion type [place] vs. transplanted heart: unspecified whether [place] or transplanted heart Associated angina: angina presence unspecified Qualified Code(s): I25.10 - Atherosclerotic heart disease of [place] coronary artery without angina pectoris
[2019-01-26] MEDS ORDERED: Isovue-370 500 ML BOTTLE IVP ONE (08:50)
[2019-01-26] MEDS: Thiamine (B-1) 100 MG TABLET PO SCH (11:06)
[2019-01-26] MEDS: Sennosides 8.6 MG TABLET PO SCH (11:06)
[2019-01-26] MEDS: Venlafaxine XR (24 HR) 75 MG CAP.ER.24H PO SCH (11:06)
[2019-01-26] MEDS: MethylPREDNISolone 40 MG/ML VIAL IVP SCH ×2 (11:06→11:21)
[2019-01-26] MEDS: Lisinopril 20 MG TABLET PO SCH (11:06)
[2019-01-26] MEDS: Multivit/Ca/Min/Fe/FA 1 TAB TABLET PO SCH (11:06)
[2019-01-26] MEDS: amLODIPine 5 MG TABLET PO SCH (11:06)
[2019-01-26] MEDS: Pregabalin 75 MG CAPSULE PO SCH ×2 (11:07→21:07)
[2019-01-26] MEDS: Aspirin Enteric Coated 81 MG Tablet PO SCH (11:07)
[2019-01-26] MEDS: Folic Acid 1 MG TABLET PO SCH (11:07)
[2019-01-26] MEDS: cefTRIAXone 1,000 MG in Water for inj. (sterile) 20 ML 10 ML IVP SCH (12:54)
[2019-01-26] MEDS: Furosemide 20 MG/2 ML VIAL IVP SCH (12:54)
[2019-01-26] MEDS: Azithromycin 500 MG in D5% in Water 250 ML IVPB SCH (12:55)
[2019-01-26] MEDS: Ipratropium/Albuterol Neb 3 ML IH SCH ×5 (13:37→23:09)
[2019-01-26] MEDS ORDERED: Perflutren Lipid Microsphere 1.3 ML in 0.9 % Sodium Chloride 8.7 ML IVP ONE (16:57)
--- NOTE | 2019-01-26 17:14 | Event Note ---
Date of Encounter: 01/26/19 Time of Encounter: 15:10 Orthopedics Patient is POD#4 s/p Left thumb removal of deep implant from the base of proximal phalanx, Left thumb arthrodesis of the metacarpophalangeal joint with distal radius bone graft 01/22/19 Dressings are still in place to LUE, leave in place until next visit in [facility] office 01/29 with Mariam Early PA-C. Continue to ice and elevate LUE. No thumb motion. NWB to LUE. Patient needs to use bone stimulator 3 hrs daily to left thumb. He states family member is bring from home today. Plan to see patient again in office on 01/29 but if he is still admitted then will reschedule.
[2019-01-26] MEDS: Melatonin 3 MG TABLET PO PRN (22:48)
[2019-01-27] MEDS: Ipratropium/Albuterol Neb 3 ML IH SCH ×6 (04:14→23:29)
[2019-01-27 05:24] LABS: Basophils % 0.1 %; Eosinophils % 0.3 %; Hematocrit 26.5 % (37.5-50.1); Hemoglobin 8.8 g/dL (12.9-16.9); Immature Granulocytes % 0.5 % (0-4); Lymphocytes # 0.5 K/mcL (0.6-4.6); Lymphocytes % 6.5 %; Mean Corpuscular HGB Conc 33.2 g/dL (31.6-35.5); Mean Corpuscular Hemoglobin 28.5 pg (28.0-33.3); Mean Corpuscular Volume 85.8 fL (83.0-100.0); Mean Platelet Volume 11.1 fL (9.4-12.4); Monocytes # 0.5 K/mcL (0.0-1.3); Monocytes % 6.5 %; Neutrophils # 6.4 K/mcL (1.6-8.9); Platelet Count 120 K/mcL (140-400); Red Blood Count 3.09 M/mcL (4.19-5.50); Red Cell Distribution Width 18.6 % (11.5-14.5); Segmented Neutrophils % 86.1 %; White Blood Count 7.4 K/mcL (4.3-11.1)
[2019-01-27 05:45] LABS: BUN/Creatinine Ratio 18 (6-26); Blood Urea Nitrogen 9 mg/dL (8-23); Calcium 7.8 mg/dL (8.6-10.3); Carbon Dioxide 27 mEq/L (23-29); Chloride 88 mEq/L (98-107); Glucose 183 mg/dL (70-105); Magnesium 1.8 mg/dL (1.6-2.6); Osmolality,Calculated 263 (280-300); Phosphorous 2.5 mg/dL (2.7-4.5); Potassium 3.6 mEq/L (3.5-5.1); Sodium 125 mEq/L (136-145); eGFR For African Americans > 60 (> 60); eGFR For Non-African Americans > 60 (> 60)
[2019-01-27] MEDS: Pantoprazole 40 MG VIAL IVP SCH ×2 (05:47→18:30)
--- NOTE | 2019-01-27 09:19 | Internal Med Progress Note ---
<Gale Domingo - Last Filed: 01/27/19 16:56> Hospitalist Progress Note - Encounter Date of Encounter: 01/27/19 Time of Encounter: 09:00 - Subjective Interval History: Patient seen and examined at bedside. He is alert and oriented times 3 sitting up eating breakfast. He has no complaints. He reports abdominal pain has resolved and he has no pain with eating. He had 2 small bowel movements last night that were not bloody. He denied melena and hematechezia. He denied fever, chills, hematuria. The shortness of breath has improved. - Exam Vitals: Temp Pulse Resp BP Pulse Ox 97.7 F 73 18 137/69 91 01/27/19 06:33 01/27/19 06:33 01/27/19 07:24 01/27/19 06:33 01/27/19 07:24 Exam: Gen.: Vitals noted. No acute distress. AAOx3 HEENT: oropharynx clear, Normocephalic, atraumatic Cardiac: RRR, no murmur, +S1/S2 Pulmonary: bilaterally rales and mild rhonchi, no wheezes, equal chest expansion Abdomen: soft, nontender, Bowel sounds noted, no guarding, distended MSK: ROM intact, no joint swelling noted Extremities: no BLE edema, nontender calf, no cyanosis or clubbing Neuro: A&Ox3, moves all extremities, no focal deficits Psych: Appropriate mood and behavior - Assessment and Plan (1) Pancreatitis Current Visit: Yes Status: Acute Assessment and Plan: Acute Pancreatitis demonstrated on abdominal CTA -patient has history of having one other episode of pancreatitis secondary to alcohol that do not require hospitalization. He has history of heavy alcohol use drinking 3 tallboy beers the day and 6 smaller beers on the weekend since 12 years old. -Differential for etiology of pancreatitis is alcoholism most likely. Patient is taking hydrocodone thiazide which can cause pancreatitis. Consider gallstones as he occasionally has biliary colic. Triglycerides in calcium WNL. -Lipase 121, previous 1016 -lactic acid 1.9 -calcium 9.5 -triglycerides 58, lipid panel unremarkable -total bilirubin 1.0, direct bilirubin 0.3, LFT WNL, alkaline phosphatase 48 -Laura criteria: 1 -Abdominal/pelvis CTA showing acute pancreatitis without complication. -Abdominal ultrasound negative for stones. Plan -resolved. -No abdominal pain and tolerating oral diet well -continue supportive care with PRN pain medication and Zofran -hold hydrocothiazide (2) Acute respiratory failure with hypoxia Current Visit: Yes Status: Acute Assessment and Plan: Acute respiratory failure with hypoxia -secondary to me acquired pneumonia and pleural effusions -89% SpO2 on 2 L -afebrile, hemodynamically stable -WBC WNL -sputum culture growing gram-negative cody -chest CTA demonstrating no pulmonary embolus. Pulmonary with edema bilateral pleural effusions. Ground glass opacities bilaterally and evidence of acute bronchitis. -Appropriate urine output Plan -will continue with diuresis with Lasix 20 mg daily -continue supplemental oxygen and will attempt to wean off as he does not require auction at baseline -continue with azithromycin and Rocephin IV day 3 -continue steroids oral prednisone day 2 -continue bronchodilators including duonebs -continue incentive spirometry, encourage ambulation (3) Community acquired pneumonia Current Visit: Yes Status: Acute Assessment and Plan: Patient with community acquired pneumonia -chest CTA demonstrating no pulmonary embolus. Pulmonary with edema bilateral pleural effusions. Ground glass opacities bilaterally and evidence of acute bronchitis. -sputum culture growing gram-negative cody -Antibiotics as above (4) Anemia Current Visit: Yes Status: Acute Assessment and Plan: Anemia that appears chronic and nature. May also be related to recent hand surgery. Hemoglobin at admission 12.5 -with the patient's continue decrease in hemoglobin there is concern for bleeding. This is likely multifactorial with iron deficiency and anemia of chronic disease. Patient reports having colonoscopy 5 years ago at the [facility] and was told that he needed a repeat colonoscopy in 5 years. He denies weight loss, melena, hematechezia, abdominal bloating. -s/p Hand surgery by Dr Hawthorne yesterday for failed ligament reconstruction, without complication -hemoglobin 8.8 decreased -baseline [id number] -MCV WNL -iron 17, 6% saturation, transferring 201, ferritin 161 -abdominal/pelvis CT showing no evidence of bowel obstruction. Mild gas distention may be secondary to ileus. Small ascites. -no obvious active bleeding -stool occult was negative -patient has significant history of alcoholism and significant ibuprofen use with 100 mg 1 to 2 times daily. plan -will continue to monitor for bleeding -will consult gastroenterology, for further recommendations appreciated -repeat hemoglobin level -NPO midnight -monitor hemoglobin -continue with ferrous sulfate supplementation (5) Abdominal pain Current Visit: Yes Status: Acute Assessment and Plan: Most likely secondary to pancreatitis as seen on abdominal CTA. -There was no evidence on imaging of ischemic colitis and mesenteric ischemia. Not an acute abdomen on exam. -lactic acid 1.9 -lipase 121, admission 1016 -total bilirubin 1.0, direct bilirubin 0.3, LFT WNL, alkaline phosphatase 48 -Abdominal/pelvis CTA showing acute pancreatitis without complication. -Resolved -Plan as above (6) Essential hypertension Current Visit: No Status: Chronic Assessment and Plan: History of hypertension taking hydrochlorothiazide, lisinopril, amlodipine -BP elevated 174/88 -Continue lisinopril and amlodipine -Lopressor IV PRN -hold hydrochlorothiazide as it can cause acute pancreatitis (7) Tobacco abuse Current Visit: No Status: Chronic Assessment and Plan: Smokes daily (8) Alcohol abuse Current Visit: Yes Status: Acute Assessment and Plan: He has history of heavy alcohol use drinking 3 tallboy beers the day and 6 smaller beers on the weekend since 12 years old. -He has been through alcohol withdrawal. Denied ever having seizures and Dts. -Patient is not had any withdrawal symptoms or required Ativan. Will discontinue CIWA protocol and Ativan -discussed alcohol cessation (9) COPD (chronic obstructive pulmonary disease) Current Visit: Yes Status: Acute Assessment and Plan: History of COPD. Not on oxygen. -Continue home inhaler -continue duoneb (10) CAD (coronary artery disease) Current Visit: Yes Status: Acute Assessment and Plan: history of coronary artery disease taking Plavix and aspirin. - Continue Plavix and aspirin. Dr. Roberts of orthopedic hand surgeon agreed with continuing home medications (11) Hyponatremia Current Visit: Yes Status: Acute Assessment and Plan: Resolved Hyponatremia on admission sodium 132 -sodium 125 -likely due to poor oral intake due to alcoholism -appears chronic at baseline -Will continue with diuresis is the patient does have pleural effusion -will repeat sodium level -will order salt tablets (12) DVT prophylaxis Current Visit: Yes Status: Acute Assessment and Plan: SCD (13) Pleural effusion Current Visit: Yes Status: Acute Assessment and Plan: Pleural effusions demonstrated on CTA. -This is likely secondary to IV fluids for pancreatitis and pneumonia. -chest CTA demonstrating no pulmonary embolus. Pulmonary with edema bilateral pleural effusions. Ground glass opacities bilaterally and evidence of acute bronchitis. -Will continue with diuresis -plan as above - Time Spent with Patient Total time spent is greater than 50% in coordination of care (as documented) at patient's floor/unit and/or counseling patient: Internal Medicine: Result - Labs CBC & Chem 7: 01/27/19 04:10 01/27/19 04:10 Labs: Short CBC 01/27/19 Range/Units 04:10 WBC 7.4 (4.3-11.1) K/mcL Hgb 8.8 L (12.9-16.9) g/dL Hct 26.5 L (37.5-50.1) % Plt Count 120 L (140-400) K/mcL Neutrophils # 6.4 (1.6-8.9) K/mcL BMP 01/27/19 04:10 Sodium 125 L Potassium 3.6 Chloride 88 L Carbon Dioxide 27 BUN 9 Creatinine 0.51 L Glucose 183 H Calcium 7.8 L - Impressions Impressions Chest CTA 01/26/19 08:50 IMPRESSION: 1. No pulmonary embolus. 2. Pulmonary edema as evidenced by ground-glass opacities and bilateral pleural effusions. 3. Dependent atelectasis secondary to airway secretions/occlusion in the bilateral lower lobes which may represent acute bronchitis. 4. Severe emphysema. D/ / 01/26/2019 11:08:38 Madelaine Maher MD / mari Interpreting Provider: Madeliane Maher MD Consult Discharge Plan - Plan Referrals: [facility] [Outside] <Nazario Coto - Last Filed: 01/27/19 18:10> Hospitalist Progress Note - Encounter Date of Encounter: 01/27/19 - Exam Vitals: Temp Pulse Resp BP Pulse Ox 98.3 F 85 18 110/74 82 01/27/19 14:03 01/27/19 14:03 01/27/19 15:49 01/27/19 14:03 01/27/19 15:49 - Assessment and Plan (1) Essential hypertension Current Visit: No Status: Chronic (2) Tobacco abuse Current Visit: No Status: Chronic (3) Pancreatitis Current Visit: Yes Status: Acute (4) Alcohol abuse Current Visit: Yes Status: Acute (5) COPD (chronic obstructive pulmonary disease) Current Visit: Yes Status: Acute (6) Abdominal pain Current Visit: Yes Status: Acute (7) DVT prophylaxis Current Visit: Yes Status: Acute (8) CAD (coronary artery disease) Current Visit: Yes Status: Acute (9) Anemia Current Visit: Yes Status: Acute (10) Hyponatremia Current Visit: Yes Status: Acute (11) Community acquired pneumonia Current Visit: Yes Status: Acute (12) Acute respiratory failure with hypoxia Current Visit: Yes Status: Acute (13) Pleural effusion Current Visit: Yes Status: Acute - Time Spent with Patient Total time spent is greater than 50% in coordination of care (as documented) at patient's floor/unit and/or counseling patient: Internal Medicine: Result - Labs CBC & Chem 7: 01/27/19 04:10 01/27/19 04:10 Labs: Short CBC 01/27/19 Range/Units 04:10 WBC 7.4 (4.3-11.1) K/mcL Hgb 8.8 L (12.9-16.9) g/dL Hct 26.5 L (37.5-50.1) % Plt Count 120 L (140-400) K/mcL Neutrophils # 6.4 (1.6-8.9) K/mcL BMP 01/27/19 04:10 Sodium 125 L Potassium 3.6 Chloride 88 L Carbon Dioxide 27 BUN 9 Creatinine 0.51 L Glucose 183 H Calcium 7.8 L - Impressions Impressions Echocardiogram 01/26/19 11:29 Impressions: LVEF 60-65%. Normal LV chamber size, wall thickness and function. Mild left ventricular diastolic dysfunction. Normal right ventricular structure and function. No evidence of pulmonary hypertension. No significant valvular dysfunction. Left Ventricular Wall Motion: Rest Echo Findings All wall segments showed normal motion. Findings: Study Quality * Technically adequate exam. ECG Findings * Normal sinus rhythm. Left Ventricle * LVEF 60-65%. * Normal LV chamber size, wall thickness and function. * Mild left ventricular diastolic dysfunction. Right Ventricle * Normal right ventricular structure and function. Left Atrium * Mildly dilated left atrium. Right Atrium * Normal right atrial size. Interatrial Septum * No evidence of a PFO by color Doppler. Aortic Valve * Trileaflet aortic valve. * Mildly sclerotic aortic valve leaflets. * No aortic regurgitation. * No aortic stenosis. Mitral Valve * Mildly thickened mitral valve leaflets. * No mitral regurgitation. * No mitral stenosis. Tricuspid Valve * Normal tricuspid valve structure and function. * Trace tricuspid regurgitation. * No evidence of pulmonary hypertension. Pulmonic Valve * Normal pulmonic valve structure and function. * No pulmonic regurgitation. Aorta * Normally sized aortic root. Pericardium * The pericardium appears normal. IVC * Normal IVC dimensions and inspiratory collapse. Pulmonary Artery * Normal visualized portions of the main pulmonary artery. - Attending Attestation I examined this patient and my medical decision-making was reviewed with the Resident Physician on 01/27/19. I agree with the documented findings, disposition and treatment plan as described except to the extent set forth below. Mr Arce is currently admitted for anemia, pancreatitis (resolved) and hypoxic resp failure. He remains moderate to high risk due to potential for worsening clinical status. Mr Arce is breathing better. He is on less oxygen. No fever or chills. Exam shows some scattered rales. No edema Agree with assessment and plan as above. Diuresis, GI eval. <Gale Domingo - Last Filed: 01/27/19 16:56> (1) Pancreatitis Qualifiers: Chronicity: acute Pancreatitis type: alcohol induced Acute pancreatitis complication: unspecified Qualified Code(s): K85.20 - Alcohol induced acute pancreatitis without necrosis or infection (3) Community acquired pneumonia Qualifiers: Laterality: unspecified laterality Qualified Code(s): J18.9 - Pneumonia, unspecified organism (4) Anemia Qualifiers: Anemia type: unspecified type Qualified Code(s): D64.9 - Anemia, unspecified (5) Abdominal pain Qualifiers: Abdominal location: epigastric Qualified Code(s): R10.13 - Epigastric pain (9) COPD (chronic obstructive pulmonary disease) Qualifiers: COPD type: chronic bronchitis Chronic bronchitis type: unspecified Qualified Code(s): J42 - Unspecified chronic bronchitis (10) CAD (coronary artery disease) Qualifiers: Coronary Disease-Associated Artery/Lesion type: unspecified vessel or lesion type [place] vs. transplanted heart: unspecified whether [place] or transplanted heart Associated angina: angina presence unspecified Qualified Code(s): I25.10 - Atherosclerotic heart disease of [place] coronary artery without angina pectoris <Nazario Coto - Last Filed: 01/27/19 18:10> (3) Pancreatitis Qualifiers: Chronicity: acute Pancreatitis type: alcohol induced Acute pancreatitis complication: unspecified Qualified Code(s): K85.20 - Alcohol induced acute pancreatitis without necrosis or infection (5) COPD (chronic obstructive pulmonary disease) Qualifiers: COPD type: chronic bronchitis Chronic bronchitis type: simple Qualified Code(s): J41.0 - Simple chronic bronchitis (6) Abdominal pain Qualifiers: Abdominal location: epigastric Qualified Code(s): R10.13 - Epigastric pain (8) CAD (coronary artery disease) Qualifiers: Coronary Disease-Associated Artery/Lesion type: [place] artery [place] vs. transplanted heart: [place] heart Associated angina: without angina Qualified Code(s): I25.10 - Atherosclerotic heart disease of [place] coronary artery without angina pectoris (9) Anemia Qualifiers: Anemia type: unspecified type Qualified Code(s): D64.9 - Anemia, unspecified (11) Community acquired pneumonia Qualifiers: Laterality: unspecified laterality Qualified Code(s): J18.9 - Pneumonia, unspecified organism
[2019-01-27] MEDS: Multivit/Ca/Min/Fe/FA 1 TAB TABLET PO SCH (09:50)
[2019-01-27] MEDS: Aspirin Enteric Coated 81 MG Tablet PO SCH (09:50)
[2019-01-27] MEDS: Pregabalin 75 MG CAPSULE PO SCH ×2 (09:51→22:54)
[2019-01-27] MEDS: amLODIPine 5 MG TABLET PO SCH (09:51)
[2019-01-27] MEDS: predniSONE 20 MG TABLET PO SCH (09:51)
[2019-01-27] MEDS: Venlafaxine XR (24 HR) 75 MG CAP.ER.24H PO SCH (09:51)
[2019-01-27] MEDS: Thiamine (B-1) 100 MG TABLET PO SCH (09:52)
[2019-01-27] MEDS: Lisinopril 20 MG TABLET PO SCH (09:52)
[2019-01-27] MEDS: Sennosides 8.6 MG TABLET PO SCH (09:52)
[2019-01-27] MEDS: Folic Acid 1 MG TABLET PO SCH (09:52)
[2019-01-27] MEDS: Furosemide 20 MG/2 ML VIAL IVP SCH (09:53)
[2019-01-27 11:20] LABS: % Iron Saturation 6 % (20-55); Iron 17 mcg/dL (65-175); Transferrin 201 mg/dL (203-362)
[2019-01-27 11:37] LABS: Ferritin 161 ng/mL (20-250)
[2019-01-27] MEDS: OXYCODONE Oral CONC 10 MG/0.5 ML ORAL.SYG SL PRN ×2 (12:46→23:02)
[2019-01-27] MEDS: cefTRIAXone 1,000 MG in Water for inj. (sterile) 20 ML 10 ML IVP SCH (13:29)
[2019-01-27] MEDS: Azithromycin 500 MG in D5% in Water 250 ML IVPB SCH (13:30)
[2019-01-27 18:34] LABS: Hematocrit 26.3 % (37.5-50.1); Hemoglobin 8.8 g/dL (12.9-16.9)
[2019-01-27] MEDS ORDERED: 0.9 % Sodium Chloride 1,000 ML IVC SCH (18:45)
[2019-01-28] MEDS: Melatonin 3 MG TABLET PO PRN (00:29)
[2019-01-28 01:18] LABS: Basophils % 0.1 %; Eosinophils % 0.1 %; Hematocrit 25.2 % (37.5-50.1); Hemoglobin 8.4 g/dL (12.9-16.9); Immature Granulocytes % 0.6 % (0-4); Lymphocytes # 0.4 K/mcL (0.6-4.6); Lymphocytes % 5.2 %; Mean Corpuscular HGB Conc 33.3 g/dL (31.6-35.5); Mean Corpuscular Hemoglobin 29.1 pg (28.0-33.3); Mean Corpuscular Volume 87.2 fL (83.0-100.0); Mean Platelet Volume 11.1 fL (9.4-12.4); Monocytes # 0.6 K/mcL (0.0-1.3); Monocytes % 8.6 %; Neutrophils # 5.8 K/mcL (1.6-8.9); Platelet Count 124 K/mcL (140-400); Red Blood Count 2.89 M/mcL (4.19-5.50); Red Cell Distribution Width 18.6 % (11.5-14.5); Segmented Neutrophils % 85.4 %; White Blood Count 6.8 K/mcL (4.3-11.1)
[2019-01-28] MEDS: Ipratropium/Albuterol Neb 3 ML IH SCH ×6 (03:42→23:20)
[2019-01-28] MEDS: Pantoprazole 40 MG VIAL IVP SCH (06:06)
--- NOTE | 2019-01-28 08:38 | Internal Med Progress Note ---
<Nazario Coto - Last Filed: 01/28/19 14:21> Hospitalist Progress Note - Encounter Date of Encounter: 01/28/19 - Exam Vitals: Temp Pulse Resp BP Pulse Ox 98.3 F 81 18 139/72 95 01/28/19 10:19 01/28/19 10:19 01/28/19 11:00 01/28/19 10:01/28/19 11:00 - Assessment and Plan (1) Essential hypertension Current Visit: No Status: Chronic (2) Tobacco abuse Current Visit: No Status: Chronic (3) Pancreatitis Current Visit: Yes Status: Acute (4) Alcohol abuse Current Visit: Yes Status: Acute (5) COPD (chronic obstructive pulmonary disease) Current Visit: Yes Status: Acute (6) Abdominal pain Current Visit: Yes Status: Acute (7) DVT prophylaxis Current Visit: Yes Status: Acute (8) CAD (coronary artery disease) Current Visit: Yes Status: Acute (9) Anemia Current Visit: Yes Status: Acute (10) Hyponatremia Current Visit: Yes Status: Acute (11) Community acquired pneumonia Current Visit: Yes Status: Acute (12) Acute respiratory failure with hypoxia Current Visit: Yes Status: Acute (13) Pleural effusion Current Visit: Yes Status: Acute - Time Spent with Patient Total time spent is greater than 50% in coordination of care (as documented) at patient's floor/unit and/or counseling patient: Internal Medicine: Result - Labs CBC & Chem 7: 01/28/19 00:24 01/28/19 11:27 Labs: Short CBC 01/27/19 01/28/19 Range/Units 17:24 00:24 WBC 6.8 (4.3-11.1) K/mcL Hgb 8.8 L 8.4 L (12.9-16.9) g/dL Hct 26.3 L 25.2 L (37.5-50.1) % Plt Count 124 L (140-400) K/mcL Neutrophils # 5.8 (1.6-8.9) K/mcL BMP 01/27/19 01/28/19 01/28/19 17:24 00:24 11:27 Sodium 123 L 117 L* 130 L D Consult Discharge Plan - Plan Referrals: [facility] [Outside] - Attending Attestation I examined this patient and my medical decision-making was reviewed with the Resident Physician on 01/28/19. I agree with the documented findings, disposition and treatment plan as described except to the extent set forth below. Mr Arce is currently admitted for acute pancreatitis and resp failure. He has developed hyponatremia. He remains moderate to high risk due to potential for worsening clinical status. Mr Arce is resting in bed. He feels well. No CP. Dyspnea improving. No GI issues. Sodium lower at midnight - 0400 lab pending at time of my visit. Appears it was not drawn and lab later in AM sodium now 130. Pt has no confusion or other neurologic symptoms. Exam shows no tremor and lungs clear now. Abd soft. Renal consulted. Needs oxygen qualification. Anticipate d/c in next 24 - 48 hours. <Ana Menchaca - Last Filed: 01/28/19 19:05> Hospitalist Progress Note - Encounter Date of Encounter: 01/28/19 Time of Encounter: 09:10 - Subjective Interval History: Patient was seen and examined at bedside this morning. He remains in no acute distress. No acute complaints at this time. Hemoglobin continues to trend down. Hb = 8.4 and most recent check this morning. Additionally patient is hyponatremic = 117. His vitals are hemodynamically stable. Oxygen saturation = 96% on 4 L via nasal cannula, which is improving. Otherwise, denies any headaches, blurry vision, chest pain, difficulty breathing, abdominal pain, nausea, vomiting. Does complain of constipation, but did have 2 small bowel movements 2 days ago. Denies any overt bleeding, hematochezia, melena, hemoptysis, hematemesis. Remains afebrile without leukocytosis. - Exam Vitals: Temp Pulse Resp BP Pulse Ox 98 F 78 16 132/67 96 01/28/19 06:41 01/28/19 06:41 01/28/19 07:39 01/28/19 06:41 01/28/19 07:39 Exam: GEN: Pleasant 63-year-old male resting comfortably in bed. Vitals stable. No acute distress. AAOx3 HEENT: Atraumatic, Normocephalic, PERRLA, EOMI NECK: Supple, no lymphadenopathy, no JVD CARDIAC: RRR, s1 and s2 present, no murmurs, rubs, gallops PULM: Diffuse wheezing bilaterally. Decreased breath sounds in the lower right lung base. Mild crackles noted bilaterally. not in respiratory distress, no rales, rhonchi ABD: Soft, non-tender, non-distended, no guarding or rebound tenderness. Bowel sounds present EXT: No peripheral edema. No calf tenderness, cyanosis, clubbing. Left arm currently bandaged status post surgery. Using bone stimulator. NEURO: CN 2-12 grossly intact. No focal neurologic deficits. Follows commands PSYCH: Appropriate mood and affect - Assessment and Plan (1) Pancreatitis Current Visit: Yes Status: Acute Assessment and Plan: This is a 63-year-old male who past medical history significant for CAD, COPD, [place] who presented from the [place] due to abdominal pain. - Notes sharp abdominal pain which began the night before presentation. Associated with nausea. History of pancreatitis in the past, but notes this is more severe - History of alcoholism. Notes that he drinks on a daily basis. Drinks at least 3 beers, but opted 8 beers per day; Also notes that he is a daily smoker - In the ED, patient noted to be hypertensive. BP = 207/90 - Initial labs: Lipase = 1016, WBC = 15.1, lactic acid = 1.9. - CT of the abdomen and pelvis did show acute pancreatitis without complications - Status post 2 L IV fluids, morphine, fentanyl, Zofran in the ED - Patient notes that he is feeling much improved as of today. Pain is significantly improved. He does have mild tenderness to palpation over the epigastric region of the abdomen. He also notes that he was distended today. - Lipase = 1016=>776=>121 - Right upper quadrant ultrasound (01/25/19): Small amount of perihepatic ascites. No cholelithiasis and no cholecystitis - CT of abdomen and pelvis (01/25/19): No evidence of bowel obstruction. Mild gaseous distention of large bowel suggest possible ileus. Evidence of ascites. PLAN: Patient initially presented with signs and symptoms of pancreatitis as shown on CT of the abdomen and pelvis. Pain has improved. Lipase value continues to improve. - Patient advanced to regular diet; passing gas; has had small bowel movements - Continue Protonix twice a day - Pain and nausea control as needed - Serial abdominal exams - Colace plus senna given due to possible ileus. Ileus likely given patient r ecently had orthopedic surgery on his left upper extremity; Milk of Mag as needed - Monitor for worsening white count and/or fever - Advance diet slowly as tolerated - Ambulate as tolerated to encourage bowel movements - Continue to monitor electrolytes. (2) Abdominal pain Current Visit: Yes Status: Acute Assessment and Plan: Plan as above (3) Alcohol abuse Current Visit: Yes Status: Acute Assessment and Plan: Patient describes heavy alcohol use, daily. Notes he has been drinking since he was 12 years old - History of alcohol withdrawal. However currently denies being in withdrawal. Denies having seizures or delirium tremens in the past - With current route of pancreatitis, patient about that he will never drink again PLAN: - CIMT protocol - Ativan as needed with CIWA protocol - Encourage alcohol cessation (4) Acute respiratory failure with hypoxia Current Visit: Yes Status: Acute Assessment and Plan: Patient was been noted to have increased oxygen requirement over the past 2 days of admission - Overnight was noted to require an liters of oxygen via high flow nasal cannula to maintain O2 saturations - Initial chest x-ray (01/23/19): Showed no evidence of focal consolidation, pneumothorax, pleural effusion - Repeat chest x-ray (01/25/19): Interval appearance of bibasilar opacities. Small left pleural effusion. COPD - CTA chest (01/26/19): No pulmonary embolus. Pulmonary edema with evidence of groundglass opacities and bilateral pleural effusions. Atelectasis secondary to a recent creation/occlusion and bilateral lower lobes. Severe emphysema. - Patient does remain afebrile without leukocytosis - Sputum culture = Enterobacter cloaca complex (sensitive to Rocephin) PLAN: - Patient seems ago developed acute respiratory failure with hypoxia. Likely secondary to fluid overload for treatment of acute pancreatitis. However, may be component of COPD exacerbation and/or pneumonia, or even undiagnosed CHF. - Continue with supplemental oxygen as needed; titrate to keep oxygen saturation greater than 92% - Monitor for signs and symptoms of worsening respiratory distress or hypoxia - Start prednisone 40 mg daily - Scheduled DuoNeb nebs every 6 hours - Lasix 20 mg daily - Strict I's and O's, and daily weights - Encourage incentive spirometry - Continue with daily Rocephin (sputum Cx sensitive to rocephin) - currently day #4 (5) Community acquired pneumonia Current Visit: Yes Status: Acute Assessment and Plan: Chest x-ray (01/25/19): Interval appearance of bibasilar opacities, small left effusion, COPD - Patient notes recent cough productive of white/yellow sputum - Sputum culture = Enterobacter cloaca complex (sensitive to Rocephin) PLAN: - Patient showing signs of possible community-acquired pneumonia, supported with chest x-ray - Continue Rocephin (currently day #4); discontinue azithromycin - Continue to monitor for leukocytosis or fevers - Supplemental oxygen as needed - Monitor for worsening signs and symptoms (6) COPD (chronic obstructive pulmonary disease) Current Visit: Yes Status: Acute Assessment and Plan: History of COPD not on home oxygen - Worsening respiratory symptoms. May be secondary to fluid overload, pneumonia, versus COPD exacerbation PLAN: - Supplement oxygen as needed - Scheduled DuoNeb's - Daily prednisone - Otherwise home inhalers - Encourage incentive spirometry - Encourage smoking cessation (7) Tobacco abuse Current Visit: No Status: Chronic Assessment and Plan: Daily smoker PLAN: - Encourage smoking cessation - Continue Chantix (8) Essential hypertension Current Visit: No Status: Chronic Assessment and Plan: History of hypertension PLAN: - Continue home hypertension medications including amlodipine, lisinopril, Lopressor - Monitor BPs - Hold hydrochlorothiazide as it can exacerbate pancreatitis (9) CAD (coronary artery disease) Current Visit: Yes Status: Acute Assessment and Plan: History of CAD on aspirin and Plavix - Echocardiogram (01/26/19): LVEF = 60 mL 5%. Normal left ventricle. Mild left ventricular diastolic dysfunction. Normal right ventricle. No evidence of pulmonary hypertension. No significant valvular dysfunction. PLAN: - Continue with both aspirin and Plavix. - Follow up echocardiography given bilateral pleural effusions (10) Hyponatremia Current Visit: Yes Status: Acute Assessment and Plan: Patient has continued hyponatremia. - Na on admission = 132 - Sodium is trended down to 125 and then to 117 this morning - Patient was placed nothing by mouth at that time. Essentially fluid restricted - Na recheck 12 hours later = 130 - Patient was given a liter bolus of D5 water. - Patient does appear to have chronic hyponatremia. PLAN: - Patient has likely chronic hyponatremia. However given fluids, pancreatitis, pneumonia while inpatient, hyponatremia has worsened. Patient remains asymptomatic, without confusion, seizures, altered mental status, nausea, vomiting. Additionally notes that he has been drinking a lot of water. - Nephrology consulted. Recommendations appreciated - Fluid Restriction 1.5L/day - Strict I's and O's - Continue with salt tablets - Continue with Lasix for diuresis - Follow up urine and serum osmolality. Additionally follow-up TSH and random cortisol. (11) DVT prophylaxis Current Visit: Yes Status: Acute Assessment and Plan: PLAN: - SCDs DVT Prophylaxis: SCDs - Time Spent with Patient Total time spent is greater than 50% in coordination of care (as documented) at patient's floor/unit and/or counseling patient: Internal Medicine: Result - Labs CBC & Chem 7: 01/28/19 00:24 01/28/19 17:05 Labs: Short CBC 01/27/19 01/28/19 Range/Units 17:24 00:24 WBC 6.8 (4.3-11.1) K/mcL Hgb 8.8 L 8.4 L (12.9-16.9) g/dL Hct 26.3 L 25.2 L (37.5-50.1) % Plt Count 124 L (140-400) K/mcL Neutrophils # 5.8 (1.6-8.9) K/mcL BMP 01/27/19 01/27/19 01/28/19 04:10 17:24 00:24 Sodium 125 L 123 L 117 L* Potassium 3.6 Chloride 88 L Carbon Dioxide 27 BUN 9 Creatinine 0.51 L Glucose 183 H Calcium 7.8 L - Impressions Impressions Echocardiogram 01/26/19 11:29 Impressions: LVEF 60-65%. Normal LV chamber size, wall thickness and function. Mild left ventricular diastolic dysfunction. Normal right ventricular structure and function. No evidence of pulmonary hypertension. No significant valvular dysfunction. Left Ventricular Wall Motion: Rest Echo Findings All wall segments showed normal motion. Findings: Study Quality * Technically adequate exam. ECG Findings * Normal sinus rhythm. Left Ventricle * LVEF 60-65%. * Normal LV chamber size, wall thickness and function. * Mild left ventricular diastolic dysfunction. Right Ventricle * Normal right ventricular structure and function. Left Atrium * Mildly dilated left atrium. Right Atrium * Normal right atrial size. Interatrial Septum * No evidence of a PFO by color Doppler. Aortic Valve * Trileaflet aortic valve. * Mildly sclerotic aortic valve leaflets. * No aortic regurgitation. * No aortic stenosis. Mitral Valve * Mildly thickened mitral valve leaflets. * No mitral regurgitation. * No mitral stenosis. Tricuspid Valve * Normal tricuspid valve structure and function. * Trace tricuspid regurgitation. * No evidence of pulmonary hypertension. Pulmonic Valve * Normal pulmonic valve structure and function. * No pulmonic regurgitation. Aorta * Normally sized aortic root. Pericardium * The pericardium appears normal. IVC * Normal IVC dimensions and inspiratory collapse. Pulmonary Artery * Normal visualized portions of the main pulmonary artery. <Nazario Coto - Last Filed: 01/28/19 14:21> (3) Pancreatitis Qualifiers: Chronicity: acute Pancreatitis type: alcohol induced Acute pancreatitis co mplication: unspecified Qualified Code(s): K85.20 - Alcohol induced acute pancreatitis without necrosis or infection (5) COPD (chronic obstructive pulmonary disease) Qualifiers: COPD type: chronic bronchitis Chronic bronchitis type: simple Qualified Code(s): J41.0 - Simple chronic bronchitis (6) Abdominal pain Qualifiers: Abdominal location: epigastric Qualified Code(s): R10.13 - Epigastric pain (8) CAD (coronary artery disease) Qualifiers: Coronary Disease-Associated Artery/Lesion type: [place] artery [place] vs. transplanted heart: [place] heart Associated angina: without angina Qualified Code(s): I25.10 - Atherosclerotic heart disease of [place] coronary artery without angina pectoris (9) Anemia Qualifiers: Anemia type: unspecified type Qualified Code(s): D64.9 - Anemia, unspecified (11) Community acquired pneumonia Qualifiers: Laterality: unspecified laterality Qualified Code(s): J18.9 - Pneumonia, unspecified organism <Ana Menchaca - Last Filed: 01/28/19 19:05> (1) Pancreatitis Qualifiers: Chronicity: acute Pancreatitis type: alcohol induced Acute pancreatitis complication: unspecified Qualified Code(s): K85.20 - Alcohol induced acute pancreatitis without necrosis or infection (2) Abdominal pain Qualifiers: Abdominal location: epigastric Qualified Code(s): R10.13 - Epigastric pain (5) Community acquired pneumonia Qualifiers: Laterality: unspecified laterality Qualified Code(s): J18.9 - Pneumonia, unspecified organism (6) COPD (chronic obstructive pulmonary disease) Qualifiers: COPD type: chronic bronchitis Chronic bronchitis type: simple Qualified Code(s): J41.0 - Simple chronic bronchitis (9) CAD (coronary artery disease) Qualifiers: Coronary Disease-Associated Artery/Lesion type: [place] artery [place] vs. transplanted heart: [place] heart Associated angina: without angina Qualified Code(s): I25.10 - Atherosclerotic heart disease of [place] coronary artery without angina pectoris
[2019-01-28] MEDS ORDERED: MOM Conc 10 ML UD.LIQ PO ONE (08:40)
[2019-01-28] MEDS: predniSONE 20 MG TABLET PO SCH (09:49)
[2019-01-28] MEDS: Multivit/Ca/Min/Fe/FA 1 TAB TABLET PO SCH (09:49)
[2019-01-28] MEDS: Aspirin Enteric Coated 81 MG Tablet PO SCH (09:49)
[2019-01-28] MEDS: Thiamine (B-1) 100 MG TABLET PO SCH (09:49)
[2019-01-28] MEDS: Furosemide 20 MG/2 ML VIAL IVP SCH (09:50)
[2019-01-28] MEDS: Folic Acid 1 MG TABLET PO SCH (09:50)
[2019-01-28] MEDS: amLODIPine 5 MG TABLET PO SCH (09:50)
[2019-01-28] MEDS: Lisinopril 20 MG TABLET PO SCH (09:50)
[2019-01-28] MEDS: Sennosides 8.6 MG TABLET PO SCH (09:50)
[2019-01-28] MEDS: Pregabalin 75 MG CAPSULE PO SCH ×2 (09:50→20:53)
[2019-01-28] MEDS: Venlafaxine XR (24 HR) 75 MG CAP.ER.24H PO SCH (09:50)
[2019-01-28] MEDS: OXYCODONE Oral CONC 10 MG/0.5 ML ORAL.SYG SL PRN ×2 (10:05→20:58)
[2019-01-28] MEDS: Azithromycin 500 MG in D5% in Water 250 ML IVPB SCH (12:43)
[2019-01-28] MEDS: cefTRIAXone 1,000 MG in Water for inj. (sterile) 20 ML 10 ML IVP SCH (12:44)
[2019-01-28] MEDS: D5% in Water 1,000 ML IVC SCH (16:36)
--- NOTE | 2019-01-28 16:39 | Nephrology Consult Note ---
Date of Encounter: 01/28/19 Time of Encounter: 16:37 Assessment and Plan (1) Hyponatremia Current Visit: Yes Status: Acute Patient has what appears to be chronic hyponatremia with a fluctuating baseline serum sodium level. This is worsened while in the hospital. Currently he is asymptomatic. Per review of his chart this appears to be multifactorial. The patient reports drinking a lot of water which is likely contributing. He also is receiving hypotonic fluids and his IV. I will check a workup which will include urine and serum osmolality, I will check his TSH, and a random cortisol. I recommend changing any carrier fluids for his intravenous medications to 0.9. I agree with a fluid restriction. Some of her medications may be associated with hyponatremia due to the acute drop we will see if he responds to conservative therapies first. (2) Alcohol abuse Current Visit: Yes Status: Acute (3) Anemia Current Visit: Yes Status: Acute Qualifiers: Anemia type: unspecified type Qualified Code(s): D64.9 - Anemia, unspecified (4) COPD (chronic obstructive pulmonary disease) Current Visit: Yes Status: Acute Qualifiers: COPD type: chronic bronchitis Chronic bronchitis type: simple Qualified Code(s): J41.0 - Simple chronic bronchitis (5) Pancreatitis Current Visit: Yes Status: Acute Qualifiers: Chronicity: acute Pancreatitis type: alcohol induced Acute pancreatitis complication: unspecified Qualified Code(s): K85.20 - Alcohol induced acute pancreatitis without necrosis or infection (6) Chronic anemia Current Visit: No Status: Acute (7) Essential hypertension Current Visit: No Status: Chronic History of Present Illness - Reason for Consult Consult date: 01/28/19 hyponatremia - Chief Complaint Hyponatremia - History of Present Illness Mr. Arce is a 63 yo man with a history of COPD presented as a transfer from the [place] for abdominal pain is found to have pancreatitis. The patient's hospital course was also, located by the development of hyponatremia. [facility] was consult it to assist with evaluation and management of the patient's hyponatremia. The patient was in his room with his family. He states he feels much better. He asked was to go home. He denies chest pain, shortness of breath, nausea, vomiting, or abdominal pain. He reports that his nausea, vomiting, and abdominal pain have all resolved. He denies diarrhea. Per review of his chart it appears the patient does drink on a renal basis. He states that he normally drinks quite a bit, but he is now adhering to his fluid restriction. Past Med Surg Social Fam HX - Past Medical History Medical history: aortic aneurysm, COPD, coronary artery disease, DVT, hyperlipidemia, hypertension, myocardial infarction, other Additional medical history: anxiety. rupture of ulnar collateral ligament of left thumb, subsequent encounter. tobacco dependency. cervical spine surgery Psychiatric history: anxiety - Past Surgical History Surgical History: other Additional surgical history: cervical fusion. cervical discectomy - Social History Smoking Status: Current every day smoker Packs per day: 08/14 Smokeless Tobacco Status: No Alcohol use: heavy Drug use: marijuana - Family History Father Living Status: Age at : 61 Cause of : aortic anerusym Hx Family Cardiac Disorders: Yes Hx Family Respiratory Disorders: Yes Hx Family Cancer: Yes Hx Family GI Disorders: No Hx Family Genitourinary Disorders: No Medications and Allergies Melatonin [Melatin] 5 mg PO HS PRN 08/15/15 [History] hydrOXYzine HCl [Hydroxyzine HCl] 50 mg PO TID PRN 08/15/15 [History] EPINEPHrine [Epipen] 0.3 mg IM ONCE PRN 03/26/17 [History] Sildenafil Citrate [Viagra] 100 mg PO DAILY PRN 03/26/17 [History] Aspirin Enteric Coated [Aspirin EC] 81 mg PO DAILY #90 tablet. 03/28/17 [Rx] Clopidogrel Bisulfate [Plavix] 75 mg PO DAILY #30 tablet 03/28/17 [Rx] Loratadine [Claritin] 10 mg PO DAILY tab 03/28/17 [Rx] Albuterol Sulfate [Albuterol Inhaler] 2 puff IH [id number] PRN 01/22/19 [History] Amlodipine Besylate 10 mg PO DAILY 01/22/19 [History] Atorvastatin Calcium [Lipitor] 10 mg PO DAILY 01/22/19 [History] Calcium Carbonate [Calcium] 600 mg PO DAILY 01/22/19 [History] Cholecalciferol (D-3) [Vitamin D] 3,000 unit PO DAILY 01/22/19 [History] Cyclobenzaprine HCl 5 mg PO BID 01/22/19 [History] Lidocaine [Aspercreme] 1 each TP Q12H PRN 01/22/19 [History] Lisinopril [Zestril] 40 mg PO DAILY 01/22/19 [History] Magnesium Oxide [Magnesium] 400 mg PO BID 01/22/19 [History] Methocarbamol [Robaxin] 750 mg PO Q4H 01/22/19 [History] Terazosin HCl 2 mg PO HS 01/22/19 [History] Tiotropium Br/Olodaterol HCl [Stiolto Respimat Inhal [place]] 2 puff IH DAILY 01/22/19 [History] Trazodone HCl 25 mg PO HS PRN 01/22/19 [History] hydroCHLOROthiazide [Hydrochlorothiazide] 12.5 mg PO DAILY 01/22/19 [History] Acetaminophen [Tylenol] 650 mg PO Q6HR PRN MDD 3000MG/24HOURS 01/24/19 [History] Albuterol Neb [Proventil Neb] 2.5 mg IH Q6H PRN 01/24/19 [History] Fluticasone Propionate Nasal [Flonase] 2 spr NS HS PRN 01/24/19 [History] Ibuprofen [Motrin] 600 mg PO BID PRN 01/24/19 [History] Multivitamin [One-Daily Multi-Vitamin] 1 tab PO DAILY 01/24/19 [History] Pregabalin [Lyrica] 300 mg PO BID 01/24/19 [History] Sennosides/Docusate Sodium [Docusate Sodium-Senna Tablet] 2 tab PO BID PRN 01/24/19 [History] Varenicline Tartrate [Chantix] 1 mg PO BID 01/24/19 [History] Venlafaxine XR (24 HR) [Effexor XR] 75 mg PO DAILY 01/24/19 [History] Allergy/AdvReac Type Severity Reaction Status Date / Time bee venom protein (honey bee) Allergy See Verified 01/24/19 14:30 Comments tramadol Allergy Hives Verified 08/15/15 00:24 Review of Systems All Systems: reviewed and no additional remarkable complaints except as stated Exam - Vital Signs Vital signs: Initial Vital Signs Temp Pulse Resp BP Pulse Ox 98.4 F 75 22 207/90 95 01/23/19 10:28 01/23/19 10:28 01/23/19 10:28 01/23/19 10:28 01/23/19 10:28 Vital Signs - Last 8 Hours Temp Pulse Resp BP Pulse Ox 01/28/19 15:42 97.5 F L 76 16 106/68 99 01/28/19 15:36 18 94 01/28/19 11:00 18 95 01/28/19 10:19 98.3 F 81 16 139/72 93 01/28/19 10:03 3 Intake and Output 01/28/19 01/28/19 01/28/19 07:59 15:59 23:59 Intake Total 0 / 0 Output Total 1800 / 3050 1250 / 3050 Balance -1800 / -3050 -1250 / -3050 Intake: Oral 0 / 0 Output: Urine 1800 / 3050 1250 / 3050 Other: Weight 71.7 kg Blood Glucose* 182 162 Patient Weight 01/28/19 23:59 Weight 71.7 kg - General Appearance General appearance: well-developed, cachectic, chronically ill, frail EENT: ATNC Neck: supple Respiratory: clear Cardiology: no edema, regular rate Gastrointestinal: no tenderness Integumentary: warm and dry Neurologic: alert and oriented x3 Musculoskeletal: no cyanosis Psychiatric: mood/affect appropriate Results - Lab Results 01/28/19 00:24 01/28/19 15:00 Consult Discharge Plan - Plan Referrals: [facility] [Outside]
[2019-01-28 18:21] LABS: Albumin 3.6 g/dL (3.5-5.7); BUN/Creatinine Ratio 13 (6-26); Blood Urea Nitrogen 8 mg/dL (8-23); Calcium 8.3 mg/dL (8.6-10.3); Carbon Dioxide 27 mEq/L (23-29); Chloride 91 mEq/L (98-107); Glucose 208 mg/dL (70-105); Magnesium 1.7 mg/dL (1.6-2.6); Osmolality,Calculated 268 (280-300); Phosphorous 2.4 mg/dL (2.7-4.5); Potassium 3.9 mEq/L (3.5-5.1); Sodium 127 mEq/L (136-145); eGFR For African Americans > 60 (> 60); eGFR For Non-African Americans > 60 (> 60)
[2019-01-28 18:34] LABS: Thyroid Stimulating Hormone 0.852 mcIU/mL (0.340-5.600)
[2019-01-29] MEDS: Ipratropium/Albuterol Neb 3 ML IH SCH ×4 (04:02→15:32)
[2019-01-29] MEDS: D5% in Water 1,000 ML IVC SCH (05:27)
[2019-01-29 06:55] LABS: Basophils % 0.2 %; Eosinophils # 0.1 K/mcL (0.0-0.6); Hematocrit 26.2 % (37.5-50.1); Hemoglobin 8.9 g/dL (12.9-16.9); Immature Granulocytes % 0.7 % (0-4); Lymphocytes % 17.9 %; Mean Corpuscular Hemoglobin 29.2 pg (28.0-33.3); Mean Corpuscular Volume 85.9 fL (83.0-100.0); Mean Platelet Volume 11.2 fL (9.4-12.4); Monocytes # 0.8 K/mcL (0.0-1.3); Monocytes % 13.4 %; Neutrophils # 3.8 K/mcL (1.6-8.9); Platelet Count 159 K/mcL (140-400); Red Blood Count 3.05 M/mcL (4.19-5.50); Red Cell Distribution Width 19.2 % (11.5-14.5); Segmented Neutrophils % 66.8 %; White Blood Count 5.8 K/mcL (4.3-11.1)
--- NOTE | 2019-01-29 08:58 | Internal Med Progress Note ---
Hospitalist Progress Note - Encounter Date of Encounter: 01/29/19 Time of Encounter: 08:57 - Subjective Interval History: Patient was seen and examined at bedside this morning. He reports no acute distress. States that his respiratory status is improving today. We have wean down his oxygen slightly. Will attempt a 6 minute walk test today. Otherwise, patient's sodium = 125. Patient was given D5 water given rapid overcorrection of sodium yesterday. We will stop that this morning. We will encourage fluid restriction, regular diet. Additionally we will continue diuresis. Patient will be switched to by mouth new. We will continue with Levaquin 750 mg for 5 more days. Otherwise, patient is in no acute distress. He is asking when he can go home. He denies any headache, confusion, blurry vision, chest pain, abdominal pain, nausea, vomiting, diarrhea. - Exam Vitals: Temp Pulse Resp BP Pulse Ox 97.8 F 74 16 156/85 96 01/29/19 07:06 01/29/19 07:06 01/29/19 07:06 01/29/19 07:06 01/29/19 07:06 Exam: GEN: Pleasant 63-year-old male resting comfortably in bed. Vitals stable. No acute distress. AAOx3 HEENT: Atraumatic, Normocephalic, PERRLA, EOMI NECK: Supple, no lymphadenopathy, no JVD CARDIAC: RRR, s1 and s2 present, no murmurs, rubs, gallops PULM: Continues to have wheezing bilaterally, but improved from yesterday. Slightly Decreased breath sounds in the lower right lung base. Not in respiratory distress, no rales, rhonchi ABD: Soft, non-tender, non-distended, no guarding or rebound tenderness. Bowel sounds present EXT: No peripheral edema. No calf tenderness, cyanosis, clubbing. Left arm currently bandaged status post surgery. Using bone stimulator. NEURO: CN 2-12 grossly intact. No focal neurologic deficits. Follows commands PSYCH: Appropriate mood and affect - Assessment and Plan (1) Pancreatitis Current Visit: Yes Status: Acute Assessment and Plan: This is a 63-year-old male who past medical history significant for CAD, COPD, [place] who [facility]. - Notes sharp abdominal pain which began the night before presentation. Associated with nausea. History of pancreatitis in the past, but notes this is more severe - History of alcoholism. Notes that he drinks on a daily basis. Drinks at least 3 beers, but opted 8 beers per day; Also notes that he is a daily smoker - In the ED, patient noted to be hypertensive. BP = 207/90 - Initial labs: Lipase = 1016, WBC = 15.1, lactic acid = 1.9. - CT of the abdomen and pelvis did show acute pancreatitis without complications - Status post 2 L IV fluids, morphine, fentanyl, Zofran in the ED - Patient notes that he is feeling much improved as of today. Pain is significantly improved. He does have mild tenderness to palpation over the epigastric region of the abdomen. He also notes that he was distended today. - Lipase = 1016=>776=>121 - Right upper quadrant ultrasound (01/25/19): Small amount of perihepatic ascites. No cholelithiasis and no cholecystitis - CT of abdomen and pelvis (01/25/19): No evidence of bowel obstruction. Mild gaseous distention of large bowel suggest possible ileus. Evidence of ascites. PLAN: Patient initially presented with signs and symptoms of pancreatitis as shown on CT of the abdomen and pelvis. Pain has improved. Lipase value continues to improve. - Patient advanced to regular diet; passing gas; has had small bowel movements - We will switch to Protonix 40 mg daily by mouth. - Pain and nausea control as needed - Serial abdominal exams - Colace plus senna given due to possible ileus. Ileus likely given patient recently had orthopedic surgery on his left upper extremity; Milk of Mag as needed - Monitor for worsening white count and/or fever - Advance diet slowly as tolerated; patient currently on regular diet. Also fluid restricted. - Ambulate as tolerated to encourage bowel movements - Continue to monitor electrolytes. (2) Alcohol abuse Current Visit: Yes Status: Acute Assessment and Plan: Patient describes heavy alcohol use, daily. Notes he has been drinking since he was 12 years old - History of alcohol withdrawal. However currently denies being in withdrawal. Denies having seizures or delirium tremens in the past - With current route of pancreatitis, patient about that he will never drink again PLAN: - Discontinue CIWA protocol - Encourage alcohol cessation (3) Acute respiratory failure with hypoxia Current Visit: Yes Status: Acute Assessment and Plan: Patient was been noted to have increased oxygen requirement over the past 2 days of admission - Overnight was noted to require an liters of oxygen via high flow nasal cannula to maintain O2 saturations - Initial chest x-ray (01/23/19): Showed no evidence of focal consolidation, pneumothorax, pleural effusion - Repeat chest x-ray (01/25/19): Interval appearance of bibasilar opacities. Small left pleural effusion. COPD - CTA chest (01/26/19): No pulmonary embolus. Pulmonary edema with evidence of groundglass opacities and bilateral pleural effusions. Atelectasis secondary to a recent creation/occlusion and bilateral lower lobes. Severe emphysema. - Patient does remain afebrile without leukocytosis - Sputum culture = Enterobacter cloaca complex (sensitive to Rocephin) PLAN: - Patient seems ago developed acute respiratory failure with hypoxia. Likely secondary to fluid overload for treatment of acute pancreatitis. However, may be component of COPD exacerbation and/or pneumonia, or even undiagnosed CHF. - Continue with supplemental oxygen as needed; titrate to keep oxygen saturation greater than 88 % - Monitor for signs and symptoms of worsening respiratory distress or hypoxia - Start prednisone 40 mg daily; will continue for a total of 5 days. - Scheduled DuoNeb nebs every 6 hours - We will discharge patient home on Lasix 40 mg by mouth daily for the next 2 weeks. Follow-up with repeat BMP and repeat CBC. - Strict I's and O's, and daily weights - Encourage incentive spirometry - Patient is status post 5 days of Rocephin. We will switch to Levaquin for 5 more days of by mouth antibiotics on discharge (4) Community acquired pneumonia Current Visit: Yes Status: Acute Assessment and Plan: Chest x-ray (01/25/19): Interval appearance of bibasilar opacities, small left effusion, COPD - Patient notes recent cough productive of white/yellow sputum - Sputum culture = Enterobacter cloaca complex (sensitive to Rocephin) PLAN: - Patient showing signs of possible community-acquired pneumonia, supported with chest x-ray - Status post 5 days of Rocephin. Will switch to Levaquin 750 mg by mouth daily. Continue for 5 more days. - Continue to monitor for leukocytosis or fevers - Supplemental oxygen as needed - Monitor for worsening signs and symptoms (5) COPD (chronic obstructive pulmonary disease) Current Visit: Yes Status: Acute Assessment and Plan: History of COPD not on home oxygen - Worsening respiratory symptoms. May be secondary to fluid overload, pneumonia, versus COPD exacerbation PLAN: - Supplement oxygen as needed - Scheduled DuoNeb's - Daily prednisone - Otherwise home inhalers - Encourage incentive spirometry - Encourage smoking cessation (6) Tobacco abuse Current Visit: No Status: Chronic Assessment and Plan: Daily smoker PLAN: - Encourage smoking cessation - Continue Chantix (7) Essential hypertension Current Visit: No Status: Chronic Assessment and Plan: History of hypertension PLAN: - Continue home hypertension medications including amlodipine, lisinopril, Lopressor - Monitor BPs - Hold hydrochlorothiazide as it can exacerbate pancreatitis (8) CAD (coronary artery disease) Current Visit: Yes Status: Acute Assessment and Plan: History of CAD on aspirin and Plavix - Echocardiogram (01/26/19): LVEF = 60 mL 5%. Normal left ventricle. Mild left ventricular diastolic dysfunction. Normal right ventricle. No evidence of pulmonary hypertension. No significant valvular dysfunction. PLAN: - Continue with both aspirin and Plavix. (9) Hyponatremia Current Visit: Yes Status: Acute Assessment and Plan: Patient has continued hyponatremia. - Na on admission = 132 - Sodium is trended down to 125 and then to 117 this morning - Patient was placed nothing by mouth at that time. Essentially fluid restricted - Na recheck 12 hours later = 130 - Patient was given a liter bolus of D5 water. - Patient does appear to have chronic hyponatremia. - TSH = within normal limits - Serum cortisols within normal limits - Sodium = 125-127 today. PLAN: - Patient has likely chronic hyponatremia. However given fluids, pancreatitis, pneumonia while inpatient, hyponatremia has worsened. Patient remains asymptomatic, without confusion, seizures, altered mental status, nausea, vomiting. Additionally notes that he has been drinking a lot of water. - Nephrology consulted. Recommendations appreciated. Patient is stable for discharge. We will continue with fluid restriction and regular diet. - Fluid Restriction 1.5L/day - Strict I's and O's - Continue with salt tablets - Continue with Lasix for diuresis (10) DVT prophylaxis Current Visit: Yes Status: Acute Assessment and Plan: PLAN: - SCDs DVT Prophylaxis: SCD - Time Spent with Patient Total time spent is greater than 50% in coordination of care (as documented) at patient's floor/unit and/or counseling patient: less than 15 minutes Plan of Care Discussed with: patient Internal Medicine: Result - Labs CBC & Chem 7: 01/29/19 05:34 01/29/19 08:57 Labs: Short CBC 01/29/19 Range/Units 05:34 WBC 5.8 (4.3-11.1) K/mcL Hgb 8.9 L (12.9-16.9) g/dL Hct 26.2 L (37.5-50.1) % Plt Count 159 (140-400) K/mcL Neutrophils # 3.8 (1.6-8.9) K/mcL BMP 01/28/19 01/28/19 01/28/19 11:27 15:00 17:05 Sodium 130 L D 126 L 127 L Potassium 3.9 Chloride 91 L Carbon Dioxide 27 BUN 8 Creatinine 0.64 L Glucose 208 H Calcium 8.3 L 01/28/19 01/29/19 19:23 00:03 Sodium 126 L 125 L Potassium Chloride Carbon Dioxide BUN Creatinine Glucose Calcium Liver Function 01/28/19 Range/Units 17:05 Albumin 3.6 (3.5-5.7) g/dL Consult Discharge Plan - Plan Instructions: How to Stop Smoking (DC), Pancreatitis (DC), Hyponatremia (DC) Referrals: [facility] [Outside] Mamadou Kim MD [Partnered Physician] - (Within 2 weeks) Prescriptions: Docusate [Colace] 100 mg PO DAILY 30 Days #30 capsule Furosemide [Lasix] 40 mg PO DAILY 14 Days #14 tablet levoFLOXacin [Levaquin] 750 mg PO DAILY 5 Days #5 tablet predniSONE [PredniSONE] 40 mg PO DAILY 2 Days #2 tablet Omeprazole [PriLOSEC] 40 mg PO DAILY@30 30 Days #30 capsule. Sodium Chloride [Sodium Chloride Tab] 1 gm PO DAILY 7 Days #7 tablet (1) Pancreatitis Qualifiers: Chronicity: acute Pancreatitis type: alcohol induced Acute pancreatitis complication: unspecified Qualified Code(s): K85.20 - Alcohol induced acute pancreatitis without necrosis or infection (4) Community acquired pneumonia Qualifiers: Laterality: unspecified laterality Qualified Code(s): J18.9 - Pneumonia, unspecified organism (5) COPD (chronic obstructive pulmonary disease) Qualifiers: COPD type: chronic bronchitis Chronic bronchitis type: simple Qualified Code(s): J41.0 - Simple chronic bronchitis (8) CAD (coronary artery disease) Qualifiers: Coronary Disease-Associated Artery/Lesion type: [place] artery [place] vs. transplanted heart: [place] heart Associated angina: without angina Qualified Code(s): I25.10 - Atherosclerotic heart disease of [place] coronary artery without angina pectoris
[2019-01-29] MEDS: Multivit/Ca/Min/Fe/FA 1 TAB TABLET PO SCH (09:01)
[2019-01-29] MEDS: Furosemide 20 MG/2 ML VIAL IVP SCH (09:01)
[2019-01-29] MEDS: Venlafaxine XR (24 HR) 75 MG CAP.ER.24H PO SCH (09:01)
[2019-01-29] MEDS: Pregabalin 75 MG CAPSULE PO SCH (09:02)
[2019-01-29] MEDS: predniSONE 20 MG TABLET PO SCH (09:02)
[2019-01-29] MEDS: Folic Acid 1 MG TABLET PO SCH (09:02)
[2019-01-29] MEDS: amLODIPine 5 MG TABLET PO SCH (09:02)
[2019-01-29] MEDS: Lisinopril 20 MG TABLET PO SCH (09:02)
[2019-01-29] MEDS: Thiamine (B-1) 100 MG TABLET PO SCH (09:02)
[2019-01-29] MEDS: Sennosides 8.6 MG TABLET PO SCH (09:02)
[2019-01-29] MEDS: Aspirin Enteric Coated 81 MG Tablet PO SCH (09:02)
[2019-01-29] MEDS: OXYCODONE Oral CONC 10 MG/0.5 ML ORAL.SYG SL PRN (09:17)
[2019-01-29 09:29] LABS: BUN/Creatinine Ratio 11 (6-26); Blood Urea Nitrogen 6 mg/dL (8-23); Calcium 8.5 mg/dL (8.6-10.3); Carbon Dioxide 30 mEq/L (23-29); Chloride 89 mEq/L (98-107); Glucose 99 mg/dL (70-105); Osmolality,Calculated 260 (280-300); Potassium 3.2 mEq/L (3.5-5.1); Sodium 126 mEq/L (136-145); eGFR For African Americans > 60 (> 60); eGFR For Non-African Americans > 60 (> 60)
[2019-01-29] MEDS ORDERED: MOM Conc 10 ML UD.LIQ PO ONE (10:38)
[2019-01-29] MEDS: cefTRIAXone 1,000 MG in Water for inj. (sterile) 20 ML 10 ML IVP SCH (13:31)
--- NOTE | 2019-01-29 14:20 | Discharge Summary ---
- NOTES TO OUTPATIENT PROVIDER Notes to Outpatient Provider: - Patient admitted with pancreatitis confirmed on CT of the abdomen. Symptoms have resolved at this time. Patient will be discharged with Protonix 40 mg daily. Additionally will be discharged with senna and Colace due to constipation. - Given patient's history of alcohol abuse, will require close follow-up. Patient notes that he plans to stop drinking alcohol. - Patient additionally developed acute respiratory failure with hypoxia. However, his respiratory status improved during admission. Will not be discharged on home oxygen. We will discharge with 2 more days of prednisone 40 mg daily. Additionally will discharge with Lasix 40 mg by mouth daily. Recommended smoking cessation. Continue Chantix. - Continue with Levaquin 750 mg daily for 5 more days for treatment of pneumonia. - Patient was noted to be hyponatremic. Likely chronically hyponatremic. Recommend fluid restricted diet while at home. We will order a follow-up BMP within 1 week and continue Lasix. - Follow up outpatient gastroenterology within 2 weeks of discharge. Patient will need outpatient endoscopy and/or colonoscopy. Orders not resulted at time of discharge: Pending orders 01/28/19 04:00 BMP [Basic Metabolic Panel] AM 0400 01/28/19 17:36 Sodium Q3H Date of Encounter: 01/29/19 Time of Encounter: 14:05 - Discharge Diagnosis (1) Pancreatitis Priority: Primary Status: Acute Qualifiers: Chronicity: acute Pancreatitis type: alcohol induced Acute pancreatitis complication: unspecified Qualified Code(s): K85.20 - Alcohol induced acute pancreatitis without necrosis or infection (2) Abdominal pain Priority: Secondary Status: Acute Qualifiers: Abdominal location: epigastric Qualified Code(s): R10.13 - Epigastric pain (3) Alcohol abuse Priority: Secondary Status: Acute (4) Acute respiratory failure with hypoxia Priority: Secondary Status: Acute (5) Community acquired pneumonia Priority: Secondary Status: Acute Qualifiers: Laterality: unspecified laterality Qualified Code(s): J18.9 - Pneumonia, unspecified organism (6) COPD (chronic obstructive pulmonary disease) Priority: Secondary Status: Acute Qualifiers: COPD type: chronic bronchitis Chronic bronchitis type: simple Qualified Code(s): J41.0 - Simple chronic bronchitis (7) Tobacco abuse Priority: Secondary Status: Chronic (8) Essential hypertension Priority: Secondary Status: Chronic (9) CAD (coronary artery disease) Priority: Secondary Status: Acute Qualifiers: Coronary Disease-Associated Artery/Lesion type: [place] artery [place] vs. transplanted heart: [place] heart Associated angina: without angina Qualified Code(s): I25.10 - Atherosclerotic heart disease of [place] coronary artery without angina pectoris (10) Hyponatremia Priority: Secondary Status: Acute (11) DVT prophylaxis Priority: Secondary Status: Acute Hospital course: Mr. Arce is a 63 year old male who past medical history significant for CAD, COPD, [place] initially presented from the [place] due to abdominal pain., Pain was noted to be sharp the night prior to presentation. Associated with nausea. Patient has a history of pancreatitis in the past, but notes this presentation was more severe. Additionally has history of alcoholism, and states that he drinks multiple beers on a daily basis. In the ED, patient was noted to be hypertensive with BP = 207/90. Initial labs, lipase = 1016, WBC = 15.1, lactic acid = 1.9. CT of the abdomen and pelvis did show acute pancreatitis without complications. Patient was given 2 L of IV fluids, morphine, fentanyl, Zofran. Over the course of his hospital stay, patient's symptoms did not improve. His lipase trended down with IV fluids. Right upper quadrant ultrasound was done which showed a small amount of perihepatic ascites, but no cholecystitis or cholelithiasis. Additionally CT of the abdomen and pelvis showed no evidence of bowel obstruction, but did show mild gaseous distention of the large bowel suggestion possible ileus, and evidence of ascites. Patient had had left hand surgery on the same day as he presented with pancreatitis, which may have contributed to his ileus. Patient was held nothing by mouth, but eventually diet was advanced as abdominal pain improved. He was given Protonix twice a day, and was given nausea and pain control. GI initially evaluated patient given anemia and abdominal pain. However after evaluation, and improved a bdominal symptoms, opted to evaluate patient outpatient. Patient will likely need outpatient endoscopy and/or colonoscopy. Of note, patient states that he will quits drinking alcohol any further after this episode of pancreatitis. Will likely need close follow-up by primary care physician. During admission, and especially on second or third day of admission, developed acute respiratory failure with hypoxia. He was noted to require increased oxygen. Initial checks x-ray on 01/23/19 showed no evidence of focal consolidation, pneumothorax, pleural effusion. However repeat chest x-ray on 01/25/19 showed interval appearance of bibasilar opacities with small left pleural effusion and evidence of COPD. CTA chest was done the next day which did show no pulmonary embolus, but did show pulmonary edema with evidence of groundglass opacities and bilateral pleural effusions. Also showed atelectasis and severe emphysema. Patient had described productive cough for a few days prior to presentation. Sputum culture did show Enterobacter which is susceptible to Rocephin. Given patient's worsening respiratory status, he was given supplemental oxygen as needed, and started on prednisone, DuoNeb's, daily Lasix. Echocardiography was done to rule out CHF, and was benign. Patient was continued on diuresis, steroids, and antibiotics. Patient slowly improved over his inpatient stay. Respiratory symptoms were likely secondary to fluid overload versus pneumonia versus COPD exacerbation. On day of discharge, patient was significantly improved. Walk test was done to see if patient r equired home oxygen, and patient saturated greater than 90% on room air. Finally patient was also noted to be hyponatremic during admission. Initially Na = 132. However, over the course of admission, patient's sodium trended down to 125 and then to a gin of 117. Patient was made nothing by mouth, and fluid restricted. IV fluids were stopped. Recheck of sodium showed sodium = 130. Concern was for rapid overcorrection. Patient was given D5 water. Currently sodium is in the 125-127. Nephrology has seen and evaluated patient, and has recommended fluid restriction, and dietary salt intake. Patient likely has chronic hyponatremia that was exacerbated with excess IV fluids to 2 pancreatitis. Continue with diuresis at discharge and fluid restriction at discharge. Patient will have close monitoring on discharge with high risk for complications or worsening status. He will be discharged home with 5 days of Levaquin 750 mg daily for further treatment of pneumonia. Additionally will discharge with 40 mg Lasix daily, 2 more days of 40 mg by mouth prednisone, and will be discharged home with 40 mg Protonix daily. He will need close follow-up with PCP within a week of discharge, and will need follow-up with gastroenterology as well. I encouraged patient towards alcohol and smoking cessation. Patient has stated that he plans on doing so. Discharge discussed with: patient Time spent discussing smoking cessation with patient: 3 to 10 minutes - Time Spent with Patient Total time spent providing and/or coordinating discharge services: Time spent: Less than 30 minutes, D/C greater than 8 hours after Admission - Discharge Medications Prescriptions: New Docusate [Colace] 100 mg PO DAILY 30 Days #30 capsule predniSONE [PredniSONE] 40 mg PO DAILY 2 Days #2 tablet Omeprazole [PriLOSEC] 40 mg PO DAILY@0630 30 Days #30 capsule. Sodium Chloride [Sodium Chloride Tab] 1 gm PO DAILY 7 Days #7 tablet Furosemide [Lasix] 40 mg PO DAILY 14 Days #14 tablet levoFLOXacin [Levaquin] 750 mg PO DAILY 5 Days #5 tablet Continued Melatonin [Melatin] 5 mg PO HS PRN PRN Reason: Insomnia hydrOXYzine HCl [Hydroxyzine HCl] 50 mg PO TID PRN PRN Reason: Anxiety Sildenafil Citrate [Viagra] 100 mg PO DAILY PRN PRN Reason: Erectile Dysfunction EPINEPHrine [Epipen] 0.3 mg IM ONCE PRN PRN Reason: Anaphylaxis Aspirin Enteric Coated [Aspirin EC] 81 mg PO DAILY #90 tablet. Clopidogrel Bisulfate [Plavix] 75 mg PO DAILY #30 tablet Loratadine [Claritin] 10 mg PO DAILY tab Albuterol Sulfate [Albuterol Inhaler] 2 puff IH [id number] PRN PRN Reason: Shortness Of Breath Trazodone HCl 25 mg PO HS PRN PRN Reason: Sleep Tiotropium Br/Olodaterol HCl [Stiolto Respimat Inhal [place]] 2 puff IH DAILY Terazosin HCl 2 mg PO HS Methocarbamol [Robaxin] 750 mg PO Q4H Magnesium Oxide [Magnesium] 400 mg PO BID Lisinopril [Zestril] 40 mg PO DAILY Lidocaine [Aspercreme] 1 each TP Q12H PRN PRN Reason: Pain Cyclobenzaprine HCl 5 mg PO BID Cholecalciferol (D-3) [Vitamin D] 3,000 unit PO DAILY Calcium Carbonate [Calcium] 600 mg PO DAILY Atorvastatin Calcium [Lipitor] 10 mg PO DAILY Amlodipine Besylate 10 mg PO DAILY Venlafaxine XR (24 HR) [Effexor XR] 75 mg PO DAILY Varenicline Tartrate [Chantix] 1 mg PO BID Pregabalin [Lyrica] 300 mg PO BID Multivitamin [One-Daily Multi-Vitamin] 1 tab PO DAILY Ibuprofen [Motrin] 600 mg PO BID PRN PRN Reason: Pain Fluticasone Propionate Nasal [Flonase] 2 spr NS HS PRN PRN Reason: Congestion Albuterol Neb [Proventil Neb] 2.5 mg IH Q6H PRN PRN Reason: Shortness Of Breath Acetaminophen [Tylenol] 650 mg PO Q6HR PRN MDD 3000MG/24HOURS PRN Reason: Pain Sennosides/Docusate Sodium [Docusate Sodium-Senna Tablet] 2 tab PO BID PRN PRN Reason: Constipation Discontinued hydroCHLOROthiazide [Hydrochlorothiazide] 12.5 mg PO DAILY Home Medications: Melatonin [Melatin] 5 mg PO HS PRN 08/15/15 [History] hydrOXYzine HCl [Hydroxyzine HCl] 50 mg PO TID PRN 08/15/15 [History] EPINEPHrine [Epipen] 0.3 mg IM ONCE PRN 03/26/17 [History] Sildenafil Citrate [Viagra] 100 mg PO DAILY PRN 03/26/17 [History] Aspirin Enteric Coated [Aspirin EC] 81 mg PO DAILY #90 tablet. 03/28/17 [Rx] Clopidogrel Bisulfate [Plavix] 75 mg PO DAILY #30 tablet 03/28/17 [Rx] Loratadine [Claritin] 10 mg PO DAILY tab 03/28/17 [Rx] Albuterol Sulfate [Albuterol Inhaler] 2 puff IH [id number] PRN 01/22/19 [History] Amlodipine Besylate 10 mg PO DAILY 01/22/19 [History] Atorvastatin Calcium [Lipitor] 10 mg PO DAILY 01/22/19 [History] Calcium Carbonate [Calcium] 600 mg PO DAILY 01/22/19 [History] Cholecalciferol (D-3) [Vitamin D] 3,000 unit PO DAILY 01/22/19 [History] Cyclobenzaprine HCl 5 mg PO BID 01/22/19 [History] Lidocaine [Aspercreme] 1 each TP Q12H PRN 01/22/19 [History] Lisinopril [Zestril] 40 mg PO DAILY 01/22/19 [History] Magnesium Oxide [Magnesium] 400 mg PO BID 01/22/19 [History] Methocarbamol [Robaxin] 750 mg PO Q4H 01/22/19 [History] Terazosin HCl 2 mg PO HS 01/22/19 [History] Tiotropium Br/Olodaterol HCl [Stiolto Respimat Inhal [place]] 2 puff IH DAILY 01/22/19 [History] Trazodone HCl 25 mg PO HS PRN 01/22/19 [History] Acetaminophen [Tylenol] 650 mg PO Q6HR PRN MDD 3000MG/24HOURS 01/24/19 [History] Albuterol Neb [Proventil Neb] 2.5 mg IH Q6H PRN 01/24/19 [History] Fluticasone Propionate Nasal [Flonase] 2 spr NS HS PRN 01/24/19 [History] Ibuprofen [Motrin] 600 mg PO BID PRN 01/24/19 [History] Multivitamin [One-Daily Multi-Vitamin] 1 tab PO DAILY 01/24/19 [History] Pregabalin [Lyrica] 300 mg PO BID 01/24/19 [History] Sennosides/Docusate Sodium [Docusate Sodium-Senna Tablet] 2 tab PO BID PRN 01/24/19 [History] Varenicline Tartrate [Chantix] 1 mg PO BID 01/24/19 [History] Venlafaxine XR (24 HR) [Effexor XR] 75 mg PO DAILY 01/24/19 [History] Docusate [Colace] 100 mg PO DAILY 30 Days #30 capsule 01/29/19 [Rx] Furosemide [Lasix] 40 mg PO DAILY 14 Days #14 tablet 01/29/19 [Rx] Omeprazole [PriLOSEC] 40 mg PO DAILY@0630 30 Days #30 capsule. 01/29/19 [Rx] Sodium Chloride [Sodium Chloride Tab] 1 gm PO DAILY 7 Days #7 tablet 01/29/19 [Rx] levoFLOXacin [Levaquin] 750 mg PO DAILY 5 Days #5 tablet 01/29/19 [Rx] predniSONE [PredniSONE] 40 mg PO DAILY 2 Days #2 tablet 01/29/19 [Rx] Allergies/Adverse Reactions: Allergy/AdvReac Type Severity Reaction Status Date / Time bee venom protein (honey bee) Allergy See Verified 01/24/19 14:30 Comments tramadol Allergy Hives Verified 08/15/15 00:24 Date of admission: 01/23/19 16:27 [facility] care physician: [facility] Consults: 01/23/19 16:47 Consult to [employer] Machine [employer]er [CONS] Routine Reason for SW Consult: alcoholism 01/28/19 09:41 Consult to Nephrology [CONS] Routine Consulting Provider: [facility]/CAROLE/DEAN/JAYY Reason for Consult: Hyponatremia = 117 this AM. Admitted with pancreatitis, additionally developed PNA; currently asymptomatic Call Completed: Yes Discharging clinician: Ana Menchaca Anticipated date of discharge: 01/29/19 - Constitutional Vitals: Temp Pulse Resp BP Pulse Ox 97.5 F L 72 18 135/62 91 01/29/19 10:15 01/29/19 10:15 01/29/19 11:40 01/29/19 10:15 01/29/19 12:33 General appearance: Present: cooperative, A&O X 3, pleasant, no acute distress, answers questions appropriately Exam: This is a pleasant 63-year-old male who is resting comfortably at bedside in no acute distress. - Head Head exam: Present: atraumatic, normal inspection, normocephalic - Eye Eye exam: Present: EOMI - ENT ENT exam: Present: mucous membranes moist - Neck Neck exam general surgery: Present: full ROM, supple - Respiratory Respiratory exam: Present: decreased breath sounds (Slightly decreased breath sounds at the bilateral lung bases, especially right greater than left.), wheezes (Wheezing bilaterally, but improved from previous exam). Absent: respiratory distress, tachypnea - Cardiovascular Cardiovascular exam: Present: RRR, +S1, +S2 - GI/Abdominal GI/Abdominal exam: Present: normal bowel sounds, soft, no peritoneal signs. Absent: rebound, rigid - Extremities Exam Extremities exam: Present: full ROM, warm, radial pulses palpable and symmetrical. Absent: pedal edema - Neurological Exam Neurological exam: Present: CN II-XII intact, oriented X3, no focal deficits - Psychiatric Psychiatric exam: Present: normal affect, normal mood - Skin Skin exam: Present: warm. Absent: rash - Patient Status Disposition: Home, Self-Care Condition: Good Functional capacity at discharge: independent ambulation Overall status at discharge: patient is progressing back to baseline - Discharge Instructions Instructions: Pancreatitis (DC), How to Stop Smoking (DC), Hyponatremia (DC) Follow Up With: [facility] [Outside] Mamadou Kim MD [Partnered Physician] - (Within 2 weeks) Forms: ED Satisfaction Letter, Work/School Release - Diet and Activity Activity: increase activity as tolerated Diet: low fat, low cholesterol, regular diet
[2019-01-29 14:36] VITALS: BP 115/66
--- NOTE | 2019-01-29 16:47 | Event Note ---
Date of Encounter: 01/29/19 Time of Encounter: 11:00 POW#1 - S/P - Left thumb removal of deep implant from the base of proximal phalanx, Left thumb arthrodesis of the metacarpophalangeal joint with distal radius bone graft 01/22 Patient doing well with no concerns at this time. Currently admitted for pneumonia/pancreatitis and being DC home today. Postoperative splint removed today. Incision healing well with no s/s infection. Sutures in place with no erythema or drainage. Applied SATSC with xeroform over the sutures. Continue to ice and elevate as needed. No lifting, pulling or pushing. Continue to use bone stimulator 3 hrs daily. Patient states he has been using 3 hrs 2xdaily and I clarified this with him to do only once daily. Will follow up in [facility] office in 1 week for suture removal and xrays.
--- NOTE | 2019-01-29 21:33 | Nephrology Progress Note ---
Date of Encounter: 01/29/19 Time of Encounter: 13:00 - Assessment and Plan (1) Essential hypertension Status: Chronic (2) Chronic anemia Status: Acute (3) Pancreatitis Status: Acute Qualifiers: Chronicity: acute Pancreatitis type: alcohol induced Acute pancreatitis complication: unspecified Qualified Code(s): K85.20 - Alcohol induced acute pancreatitis without necrosis or infection (4) Alcohol abuse Status: Acute (5) COPD (chronic obstructive pulmonary disease) Status: Acute Qualifiers: COPD type: chronic bronchitis Chronic bronchitis type: simple Qualified Code(s): J41.0 - Simple chronic bronchitis (6) Anemia Status: Acute Qualifiers: Anemia type: unspecified type Qualified Code(s): D64.9 - Anemia, unspecif ied (7) Hyponatremia Status: Acute Subjective Interval history: Interim noted, pt with hyponatremia and was seen and examined. Current sodium noted at 126 but pt is asymptomatic and very anxious to go home promising to followup outpatient Objective - Vital Signs Vital signs: Vital Signs Temp Pulse Resp BP Pulse Ox 01/29/19 15:32 20 98 01/29/19 13:57 98.0 F 74 16 115/66 100 01/29/19 12:33 91 01/29/19 11:40 18 91 01/29/19 11:25 89 01/29/19 11:06 96 01/29/19 10:15 97.5 F L 72 16 135/62 98 01/29/19 07:30 18 97 01/29/19 07:06 97.8 F 74 16 156/85 96 01/29/19 04:02 15 94 01/29/19 02:45 98.0 F 78 16 147/79 93 01/28/19 23:20 16 94 Intake and Output 01/29/19 01/29/19 01/29/19 07:59 15:59 23:59 Intake Total 1000 / 1570 570 / 1570 Output Total 1100 / 2350 1250 / 2350 Balance -100 / -780 -680 / -780 Intake: IV Fluids 1000 / 1450 450 / 1450 Dextrose 5% 1,000 ML @ 75 mls/ 1000 / 1450 450 / 1450 hr IVC .[id number] STEVEN Rx#: [id number] Oral 120 / 120 Output: Urine 1100 / 2350 1250 / 2350 Other: Meal Breakfast Percent of Meal Consumed 50% # Voids 1 Weight 69 kg Patient Weight 01/29/19 23:59 Weight 69 kg - Lab 01/29/19 05:34 01/29/19 08:57 Consult Discharge Plan - Plan Instructions: How to Stop Smoking (DC), Pancreatitis (DC), Hyponatremia (DC) Referrals: [facility] [Outside] Mamadou Kim MD [Partnered Physician] - (Within 2 weeks Web request entered. Office will call with date and time of appointment. ) Prescriptions: Docusate [Colace] 100 mg PO DAILY 30 Days #30 capsule Furosemide [Lasix] 40 mg PO DAILY 14 Days #14 tablet levoFLOXacin [Levaquin] 750 mg PO DAILY 5 Days #5 tablet predniSONE [PredniSONE] 40 mg PO DAILY 2 Days #2 tablet Omeprazole [PriLOSEC] 40 mg PO DAILY@0630 30 Days #30 capsule. Sodium Chloride [Sodium Chloride Tab] 1 gm PO DAILY 7 Days #7 tablet
== END 2019-01-29 16:16 | disposition home or self-care (01) | DRG 438 ==
LOC: 3ANU 10:24 → EMEROOARM 10:24 → SUATTDRO 15:30 → 3ANU 17:25
PROVIDERS: ADMIT Internal Medicine; ATTEND Internal Medicine

== ENCOUNTER 2020-12-25 11:45 | Inpatient (IN) ==
[2020-12-25] MEDS ORDERED: *HR* FentaNYL (PF) 100 MCG/2 ML VIAL IVP ONE (12:19)
[2020-12-25] MEDS ORDERED: Isovue-370 500 ML BOTTLE IVP ONE (12:32)
[2020-12-25 12:47] LABS: Basophils % 0.5 %; Eosinophils # 0.1 K/mcL (0.0-0.6); Hematocrit 41.8 % (37.5-50.1); Hemoglobin 13.9 g/dL (12.9-16.9); Immature Granulocytes % 0.3 % (0-4); Lymphocytes # 1.2 K/mcL (0.6-4.6); Lymphocytes % 19.4 %; Mean Corpuscular HGB Conc 33.3 g/dL (31.6-35.5); Mean Corpuscular Hemoglobin 29.3 pg (28.0-33.3); Mean Corpuscular Volume 88.2 fL (83.0-100.0); Mean Platelet Volume 10.8 fL (9.4-12.4); Monocytes # 0.4 K/mcL (0.0-1.3); Neutrophils # 4.4 K/mcL (1.6-8.9); Platelet Count 177 K/mcL (140-400); Red Blood Count 4.74 M/mcL (4.19-5.50); Red Cell Distribution Width 14.6 % (11.5-14.5); Segmented Neutrophils % 70.8 %; White Blood Count 6.1 K/mcL (4.3-11.1)
[2020-12-25 13:11] LABS: Alanine Aminotransferase 10 Units/L (7-52); Albumin/Globulin Ratio 1.3 (1.1-2.2); Alkaline Phosphatase 92 Units/L (34-104); Aspartate Amino Transferase 16 Units/L (13-39); BUN/Creatinine Ratio 13 (6-26); Bilirubin,Total 0.4 mg/dL (0.3-1.0); Blood Urea Nitrogen 12 mg/dL (8-23); Calcium 9.4 mg/dL (8.6-10.3); Carbon Dioxide 26 mEq/L (23-29); Chloride 96 mEq/L (98-107); Globulin 3.1 g/dL (2.4-3.5); Glucose 161 mg/dL (70-105); Osmolality,Calculated 271 (280-300); Potassium 4.3 mEq/L (3.5-5.1); Sodium 129 mEq/L (136-145); Total Protein 7.1 g/dL (6.4-8.9); eGFR For African Americans > 60 (> 60); eGFR For Non-African Americans > 60 (> 60)
[2020-12-25] MEDS ORDERED: Clindamycin 600 MG/50 ML 600 MG/50 ML IV.SOLN IVPB ONE (14:49)
[2020-12-25] MEDS ORDERED: *HR* Heparin 5,000 UNIT/ML VIAL IVP PRN ×2 (14:54)
[2020-12-25] MEDS ORDERED: *HR* Heparin 5,000 UNIT/ML VIAL IVP ONE (14:54)
[2020-12-25] MEDS ORDERED: *HR* LORazepam 2 MG/ML VIAL IVP PRN ×3 (15:12)
[2020-12-25] MEDS ORDERED: Naloxone 0.4 MG/ML INJ IVP PRN (15:38)
[2020-12-25] MEDS ORDERED: Melatonin 3 MG TABLET PO PRN (15:38)
[2020-12-25] MEDS ORDERED: Mag Hydrox/Al Hydrox/Simeth 30 ML UDC PO PRN (15:38)
[2020-12-25] MEDS ORDERED: Ondansetron 4 MG/2 ML VIAL IVP PRN (15:38)
[2020-12-25 15:43] LABS: Heparin anti-factor XA UFH < 0.04 IU/mL (0.30-0.70)
[2020-12-25 15:44] LABS: INR 1.1; Prothrombin Time 13.2 Seconds (9.4-12.1)
[2020-12-25 15:45] LABS: Hemoglobin 13.9 g/dL (12.9-16.9); Mean Corpuscular HGB Conc 33.1 g/dL (31.6-35.5); Mean Corpuscular Hemoglobin 29.3 pg (28.0-33.3); Mean Corpuscular Volume 88.6 fL (83.0-100.0); Mean Platelet Volume 10.9 fL (9.4-12.4); Platelet Count 176 K/mcL (140-400); Red Blood Count 4.74 M/mcL (4.19-5.50); Red Cell Distribution Width 14.6 % (11.5-14.5); White Blood Count 5.6 K/mcL (4.3-11.1)
[2020-12-25] MEDS: Heparin 25,000UNIT/250ML 1/2NS 25,000 UNIT/250 ML IV.SOLN IVC SCH (16:07)
[2020-12-25] MEDS: Piperacillin/Tazobactam 3.375 GM in 0.9 % Sodium Chloride Mini Bag 100 ML IVPB SCH ×2 (17:03→23:03)
[2020-12-25] MEDS: Thiamine (B-1) 100 MG, Folic Acid 1 MG, MVI, adult with vitamin K 10 ML in 0.9 % Sodi... IVPB SCH (17:10)
[2020-12-26 05:14] LABS: Basophils % 0.6 %; Eosinophils # 0.2 K/mcL (0.0-0.6); Eosinophils % 2.2 %; Hematocrit 39.8 % (37.5-50.1); Hemoglobin 13.7 g/dL (12.9-16.9); Immature Granulocytes % 0.1 % (0-4); Lymphocytes # 1.9 K/mcL (0.6-4.6); Lymphocytes % 28.6 %; Mean Corpuscular HGB Conc 34.4 g/dL (31.6-35.5); Mean Corpuscular Volume 87.3 fL (83.0-100.0); Mean Platelet Volume 10.8 fL (9.4-12.4); Monocytes # 0.5 K/mcL (0.0-1.3); Monocytes % 7.7 %; Neutrophils # 4.1 K/mcL (1.6-8.9); Platelet Count 165 K/mcL (140-400); Red Blood Count 4.56 M/mcL (4.19-5.50); Red Cell Distribution Width 14.7 % (11.5-14.5); Segmented Neutrophils % 60.8 %; White Blood Count 6.8 K/mcL (4.3-11.1)
[2020-12-26 05:33] LABS: Estimated Average Glucose 117 mg/dl; Hemoglobin A1C 5.7 %
[2020-12-26 05:34] LABS: BUN/Creatinine Ratio 15 (6-26); Blood Urea Nitrogen 14 mg/dL (8-23); Calcium 8.5 mg/dL (8.6-10.3); Carbon Dioxide 24 mEq/L (23-29); Chloride 101 mEq/L (98-107); Chol/HDL Ratio 2.3 (0-4.9); Glucose 93 mg/dL (70-105); Magnesium 1.5 mg/dL (1.6-2.6); Osmolality,Calculated 274 (280-300); Phosphorous 4.5 mg/dL (2.7-4.5); Potassium 4.2 mEq/L (3.5-5.1); Sodium 132 mEq/L (136-145); eGFR For African Americans > 60 (> 60); eGFR For Non-African Americans > 60 (> 60)
[2020-12-26] MEDS ORDERED: Isovue-370 500 ML BOTTLE IVP ONE (07:41)
[2020-12-26] MEDS: Aspirin Enteric Coated 81 MG Tablet PO SCH (07:57)
[2020-12-26] MEDS: Piperacillin/Tazobactam 3.375 GM in 0.9 % Sodium Chloride Mini Bag 100 ML IVPB SCH ×3 (07:59→23:33)
[2020-12-26] MEDS ORDERED: Dextrose Gel 15 GM/37.5 ML TUBE PO PRN ×2 (10:06)
[2020-12-26] MEDS ORDERED: D5% in Water 1,000 ML IVC PRN (10:06)
[2020-12-26] MEDS ORDERED: *HR* Dextrose 50 % in Water (Vial) 50 ML VIAL IVP PRN (10:06)
[2020-12-26] MEDS: lisinopriL 20 MG TABLET PO SCH (11:11)
[2020-12-26] MEDS: Magnesium Oxide 400 MG TABLET PO SCH (11:11)
[2020-12-26] MEDS: Pregabalin 75 MG CAPSULE PO SCH ×2 (11:11→19:59)
[2020-12-26] MEDS: Insulin LISPRO 300 UNITS/3 ML VIAL SUBQ SCH ×2 (11:19→16:16)
[2020-12-26] MEDS: Heparin 25,000UNIT/250ML 1/2NS 25,000 UNIT/250 ML IV.SOLN IVC SCH (18:10)
[2020-12-26] MEDS: Thiamine (B-1) 100 MG, Folic Acid 1 MG, MVI, adult with vitamin K 10 ML in 0.9 % Sodi... IVPB SCH (19:48)
[2020-12-27 02:15] LABS: Influenza A PCR Negative (Negative); Influenza B PCR Negative (Negative); Resp. Syncytial Virus PCR Negative (Negative)
[2020-12-27 02:24] LABS: SARS-CoV-2 by PCR (In House) Negative (Negative)
[2020-12-27 04:21] LABS: Basophils # 0.1 K/mcL (0.0-0.2); Basophils % 0.6 %; Eosinophils # 0.2 K/mcL (0.0-0.6); Eosinophils % 2.1 %; Hematocrit 39.3 % (37.5-50.1); Hemoglobin 13.3 g/dL (12.9-16.9); Immature Granulocytes % 0.3 % (0-4); Lymphocytes # 1.6 K/mcL (0.6-4.6); Lymphocytes % 20.4 %; Mean Corpuscular HGB Conc 33.8 g/dL (31.6-35.5); Mean Corpuscular Hemoglobin 29.6 pg (28.0-33.3); Mean Corpuscular Volume 87.5 fL (83.0-100.0); Mean Platelet Volume 11.4 fL (9.4-12.4); Monocytes # 0.8 K/mcL (0.0-1.3); Neutrophils # 5.1 K/mcL (1.6-8.9); Platelet Count 166 K/mcL (140-400); Red Blood Count 4.49 M/mcL (4.19-5.50); Segmented Neutrophils % 66.6 %; White Blood Count 7.7 K/mcL (4.3-11.1)
[2020-12-27 04:41] LABS: BUN/Creatinine Ratio 14 (6-26); Blood Urea Nitrogen 14 mg/dL (8-23); Calcium 8.5 mg/dL (8.6-10.3); Carbon Dioxide 23 mEq/L (23-29); Chloride 103 mEq/L (98-107); Glucose 126 mg/dL (70-105); Osmolality,Calculated 278 (280-300); Potassium 3.9 mEq/L (3.5-5.1); Sodium 133 mEq/L (136-145); eGFR For African Americans > 60 (> 60); eGFR For Non-African Americans > 60 (> 60)
[2020-12-27] MEDS: Magnesium Oxide 400 MG TABLET PO SCH (07:50)
[2020-12-27] MEDS: Pregabalin 75 MG CAPSULE PO SCH ×2 (07:50→21:11)
[2020-12-27] MEDS: lisinopriL 20 MG TABLET PO SCH (07:50)
[2020-12-27] MEDS: Aspirin Enteric Coated 81 MG Tablet PO SCH (07:50)
[2020-12-27] MEDS: Insulin LISPRO 300 UNITS/3 ML VIAL SUBQ SCH ×2 (07:51→11:31)
[2020-12-27] MEDS: Piperacillin/Tazobactam 3.375 GM in 0.9 % Sodium Chloride Mini Bag 100 ML IVPB SCH ×2 (07:51→18:06)
[2020-12-27] MEDS ORDERED: *HR* FentaNYL (PF) 100 MCG/2 ML VIAL ONE (13:10)
[2020-12-27] MEDS ORDERED: Lidocaine -MPF 2% 2 ML VIAL ONE ×2 (13:11→14:31)
[2020-12-27] MEDS ORDERED: Lidocaine HCL 4 ML Topical Solution (Laryng-O-Jet Kit Sterile Pak) TP ONE (13:11)
[2020-12-27] MEDS ORDERED: *HR* Rocuronium Bromide 50 MG/5 ML VIAL ONE (13:13)
[2020-12-27] MEDS ORDERED: *HR* Succinylcholine 200 MG/10 ML VIAL IVP ONE (13:13)
[2020-12-27] MEDS ORDERED: EPHEDrine 50 MG/ML VIAL ONE (13:14)
[2020-12-27] MEDS ORDERED: *HR* Phenylephrine 10 MG/ML VIAL ONE (13:15)
[2020-12-27] MEDS ORDERED: Vancomycin 1,000 MG, Sodium Chloride IRRigation 1,000 ML IR ONE ×2 (13:20→17:06)
[2020-12-27] MEDS ORDERED: *HR* Propofol 200 MG/20 ML VIAL IVP ONE ×2 (13:29→13:45)
[2020-12-27] MEDS ORDERED: Heparin 1,000 UNITS/500 mL 500 ML ONE (13:34)
[2020-12-27] MEDS ORDERED: Albuterol 2.5 MG/3 ML NEBULIZER IH PRN (13:37)
[2020-12-27] MEDS ORDERED: *HR* OxyCODONE Immed Rel 5 MG TABLET PO PRN ×2 (13:37→17:06)
[2020-12-27] MEDS ORDERED: Ondansetron 4 MG/2 ML VIAL IVP PRN ×2 (13:37→17:06)
[2020-12-27] MEDS ORDERED: Morphine Sulfate 2 MG/ML SYRINGE IVP PRN (13:38)
[2020-12-27] MEDS ORDERED: *HR* Midazolam HCl 2 MG/2 ML VIAL ONE (13:45)
[2020-12-27] MEDS ORDERED: Heparin 1,000 UNITS/500 mL 1,000 ML ONE (13:48)
[2020-12-27] MEDS ORDERED: Vancomycin 1,000 MG VIAL ONE (13:48)
[2020-12-27] MEDS ORDERED: *HR* Heparin 5,000 UNIT/ML VIAL ONE (14:23)
[2020-12-27] MEDS ORDERED: Ondansetron 4 MG/2 ML VIAL ONE (15:39)
[2020-12-27] MEDS ORDERED: Neostigmine Methylsulfate 3 MG/3 ML SYRINGE ONE (15:59)
[2020-12-27] MEDS ORDERED: *HR* Dextrose 50 % in Water (Vial) 50 ML VIAL IVP PRN (17:06)
[2020-12-27] MEDS ORDERED: Naloxone 0.4 MG/ML INJ IVP PRN (17:06)
[2020-12-27] MEDS ORDERED: *HR* LORazepam 2 MG/ML VIAL IVP PRN ×3 (17:06)
[2020-12-27] MEDS ORDERED: 0.9 % Sodium Chloride 1,000 ML IVC SCH (17:06)
[2020-12-27] MEDS ORDERED: Acetaminophen 325 MG TABLET PO PRN (17:06)
[2020-12-27] MEDS ORDERED: Melatonin 3 MG TABLET PO PRN (17:06)
[2020-12-27] MEDS ORDERED: D5% in Water 1,000 ML IVC PRN (17:06)
[2020-12-27] MEDS ORDERED: *HR* HYDROcodone/Acet 5/325 mg TABLET PO PRN (17:06)
[2020-12-27] MEDS ORDERED: Dextrose Gel 15 GM/37.5 ML TUBE PO PRN ×2 (17:06)
[2020-12-27] MEDS ORDERED: *HR* Labetalol 20 MG/4 ML SYRINGE IVP PRN (17:06)
[2020-12-27] MEDS ORDERED: Mag Hydrox/Al Hydrox/Simeth 30 ML UDC PO PRN (17:06)
[2020-12-27] MEDS: *HR* Metoprolol 5 MG/5 ML VIAL IVP SCH (17:48)
[2020-12-27] MEDS ORDERED: Thiamine (B-1) 100 MG, Folic Acid 1 MG, MVI, adult with vitamin K 10 ML in 0.9 % Sodi... IVPB SCH (18:00)
[2020-12-27 18:16] LABS: Basophils % 0.3 %; Eosinophils # 0.1 K/mcL (0.0-0.6); Eosinophils % 0.7 %; Hematocrit 42.8 % (37.5-50.1); Hemoglobin 13.8 g/dL (12.9-16.9); Immature Granulocytes % 0.5 % (0-4); Lymphocytes # 0.9 K/mcL (0.6-4.6); Lymphocytes % 6.4 %; Mean Corpuscular HGB Conc 32.2 g/dL (31.6-35.5); Mean Corpuscular Hemoglobin 28.9 pg (28.0-33.3); Mean Corpuscular Volume 89.7 fL (83.0-100.0); Mean Platelet Volume 10.1 fL (9.4-12.4); Monocytes # 0.7 K/mcL (0.0-1.3); Platelet Count 147 K/mcL (140-400); Red Blood Count 4.77 M/mcL (4.19-5.50); Red Cell Distribution Width 15.3 % (11.5-14.5); Segmented Neutrophils % 87.1 %
[2020-12-27 18:19] LABS: Neutrophils # 11.8 K/mcL (1.6-8.9); White Blood Count 13.5 K/mcL (4.3-11.1)
[2020-12-27] MEDS: CeFAZolin 2 GM/120 ML BAG IVPB SCH (21:11)
[2020-12-28] MEDS: Piperacillin/Tazobactam 3.375 GM in 0.9 % Sodium Chloride Mini Bag 100 ML IVPB SCH ×2 (00:02→08:19)
[2020-12-28] MEDS: *HR* Metoprolol 5 MG/5 ML VIAL IVP SCH ×3 (00:08→12:39)
[2020-12-28] MEDS: CeFAZolin 2 GM/120 ML BAG IVPB SCH (05:10)
[2020-12-28] MEDS ORDERED: *HR* Heparin 5,000 UNIT/ML VIAL SQ SCH (06:00)
[2020-12-28 07:29] LABS: Basophils % 0.2 %; Eosinophils % 0.1 %; Hematocrit 35.5 % (37.5-50.1); Immature Granulocytes % 0.4 % (0-4); Lymphocytes % 11.4 %; Mean Corpuscular HGB Conc 32.1 g/dL (31.6-35.5); Mean Corpuscular Hemoglobin 28.9 pg (28.0-33.3); Mean Corpuscular Volume 90.1 fL (83.0-100.0); Mean Platelet Volume 11.6 fL (9.4-12.4); Monocytes # 0.7 K/mcL (0.0-1.3); Monocytes % 7.8 %; Neutrophils # 7.2 K/mcL (1.6-8.9); Platelet Count 161 K/mcL (140-400); Red Blood Count 3.94 M/mcL (4.19-5.50); Red Cell Distribution Width 15.1 % (11.5-14.5); Segmented Neutrophils % 80.1 %
[2020-12-28 07:33] LABS: Hemoglobin 11.4 g/dL (12.9-16.9)
[2020-12-28 08:10] LABS: BUN/Creatinine Ratio 10 (6-26); Blood Urea Nitrogen 9 mg/dL (8-23); Calcium 7.9 mg/dL (8.6-10.3); Carbon Dioxide 21 mEq/L (23-29); Chloride 105 mEq/L (98-107); Glucose 152 mg/dL (70-105); Magnesium 1.6 mg/dL (1.6-2.6); Osmolality,Calculated 278 (280-300); Potassium 4.4 mEq/L (3.5-5.1); Sodium 133 mEq/L (136-145); eGFR For African Americans > 60 (> 60); eGFR For Non-African Americans > 60 (> 60)
[2020-12-28] MEDS: Pregabalin 75 MG CAPSULE PO SCH (08:19)
[2020-12-28] MEDS: Insulin LISPRO 300 UNITS/3 ML VIAL SUBQ SCH ×2 (08:22→13:10)
[2020-12-28] MEDS ORDERED: lisinopriL 20 MG TABLET PO SCH (09:00)
[2020-12-28] MEDS ORDERED: Aspirin Enteric Coated 81 MG Tablet PO SCH (09:00)
[2020-12-28] MEDS ORDERED: Magnesium Oxide 400 MG TABLET PO SCH (09:00)
[2020-12-28 11:16] VITALS: BP 124/66
== END 2020-12-28 15:33 | disposition home or self-care (01) | DRG 271 ==
LOC: 2NNU 11:45 → EMEROOARM 11:45 → SUATTDRO 15:13 → 2NNU 16:35 → SUATTDRO 12-26 13:11
PROVIDERS: ADMIT Internal Medicine; ATTEND Family Medicine

== ENCOUNTER 2021-03-14 11:57 | Inpatient (IN) ==
[2021-03-14] MEDS ORDERED: CeFAZolin Syr 2,000MG/20 ML 2,000 MG/20 ML SYRINGE IVPB ONE (12:23)
[2021-03-14] MEDS ORDERED: Ringers Solution, Lactated 1,000 ML IVC SCH (12:30)
[2021-03-14] MEDS ORDERED: Vancomycin 1,000 MG VIAL ONE (12:49)
[2021-03-14] MEDS ORDERED: Lidocaine -MPF 4% 5 ML AMPUL ONE (12:53)
[2021-03-14] MEDS ORDERED: *HR* FentaNYL (PF) 100 MCG/2 ML VIAL ONE ×4 (12:56→15:34)
[2021-03-14] MEDS ORDERED: *HR* Propofol 200 MG/20 ML VIAL IVP ONE (12:56)
[2021-03-14] MEDS ORDERED: *HR* Succinylcholine 200 MG/10 ML VIAL IVP ONE (13:00)
[2021-03-14] MEDS ORDERED: Lidocaine -MPF 2% 2 ML VIAL ONE (13:00)
[2021-03-14] MEDS ORDERED: Ondansetron 4 MG/2 ML VIAL ONE (13:00)
[2021-03-14] MEDS ORDERED: Ondansetron 4 MG/2 ML VIAL IVP PRN ×2 (13:10→15:58)
[2021-03-14] MEDS ORDERED: *HR* OxyCODONE Immed Rel 5 MG TABLET PO PRN ×2 (13:10→15:58)
[2021-03-14] MEDS: Morphine Sulfate 2 MG/ML SYRINGE IVP PRN ×3 (15:14→15:29)
[2021-03-14] MEDS ORDERED: *HR* FentaNYL (PF) 100 MCG/2 ML VIAL IVP PRN (15:30)
[2021-03-14] MEDS ORDERED: *HR* HYDROcodone/Acet 5/325 mg TABLET PO PRN (15:58)
[2021-03-14] MEDS ORDERED: Naloxone 0.4 MG/ML INJ IVP PRN (15:58)
[2021-03-14] MEDS ORDERED: Acetaminophen 325 MG TABLET PO PRN (15:58)
[2021-03-14] MEDS ORDERED: 0.9 % Sodium Chloride 1,000 ML IVC SCH (15:58)
[2021-03-14] MEDS: *HR* Metoprolol 5 MG/5 ML VIAL IVP SCH ×2 (16:25→23:43)
[2021-03-14] MEDS: *HR* HYDROcodone/Acet 5/325 mg TABLET PO PRN ×2 (17:57→23:42)
[2021-03-14] MEDS: lisinopriL 20 MG TABLET PO SCH (17:57)
[2021-03-14] MEDS: *HR* Labetalol 20 MG/4 ML SYRINGE IVP PRN ×2 (18:12→21:07)
[2021-03-14] MEDS: Acetaminophen 325 MG TABLET PO PRN (19:45)
[2021-03-14] MEDS: CeFAZolin 2 GM/120 ML BAG IVPB SCH (19:46)
[2021-03-14] MEDS: *HR* OxyCODONE Immed Rel 5 MG TABLET PO PRN (19:46)
[2021-03-15] MEDS: *HR* OxyCODONE Immed Rel 5 MG TABLET PO PRN (00:27)
[2021-03-15] MEDS: *HR* Labetalol 20 MG/4 ML SYRINGE IVP PRN (00:27)
[2021-03-15] MEDS: Acetaminophen 325 MG TABLET PO PRN (01:52)
[2021-03-15] MEDS: *HR* HYDROmorphone (PF) 1 MG/ML SYRINGE IVP PRN ×2 (03:49→06:46)
[2021-03-15] MEDS: CeFAZolin 2 GM/120 ML BAG IVPB SCH (04:58)
[2021-03-15 05:31] LABS: BUN/Creatinine Ratio 20 (6-26); Blood Urea Nitrogen 17 mg/dL (8-23); Calcium 8.8 mg/dL (8.6-10.3); Carbon Dioxide 22 mEq/L (23-29); Chloride 97 mEq/L (98-107); Glucose 130 mg/dL (70-105); Osmolality,Calculated 273 (280-300); Potassium 4.3 mEq/L (3.5-5.1); Sodium 130 mEq/L (136-145); eGFR For African Americans > 60 (> 60); eGFR For Non-African Americans > 60 (> 60)
[2021-03-15] MEDS: *HR* Heparin 5,000 UNIT/ML VIAL SQ SCH ×2 (05:31→19:43)
[2021-03-15] MEDS: *HR* Metoprolol 5 MG/5 ML VIAL IVP SCH ×4 (05:31→23:18)
[2021-03-15 05:37] LABS: Basophils % 0.1 %; Hematocrit 34.3 % (37.5-50.1); Hemoglobin 11.9 g/dL (12.9-16.9); Immature Granulocytes % 0.4 % (0-4); Lymphocytes # 1.2 K/mcL (0.6-4.6); Lymphocytes % 10.9 %; Mean Corpuscular HGB Conc 34.7 g/dL (31.6-35.5); Mean Corpuscular Hemoglobin 29.2 pg (28.0-33.3); Mean Corpuscular Volume 84.1 fL (83.0-100.0); Mean Platelet Volume 10.2 fL (9.4-12.4); Monocytes # 0.9 K/mcL (0.0-1.3); Monocytes % 8.2 %; Neutrophils # 8.7 K/mcL (1.6-8.9); Platelet Count 279 K/mcL (140-400); Red Blood Count 4.08 M/mcL (4.19-5.50); Red Cell Distribution Width 13.6 % (11.5-14.5); Segmented Neutrophils % 80.4 %; White Blood Count 10.8 K/mcL (4.3-11.1)
[2021-03-15] MEDS ORDERED: *HR* Heparin 5,000 UNIT/ML VIAL SQ SCH (06:00)
[2021-03-15] MEDS: *HR* HYDROcodone/Acet 5/325 mg TABLET PO PRN (08:57)
[2021-03-15] MEDS: lisinopriL 20 MG TABLET PO SCH (08:58)
[2021-03-15] MEDS ORDERED: Ketorolac 30 MG/ML VIAL IVP ONE (09:51)
[2021-03-15] MEDS: Beer can PO SCH ×3 (11:47→17:05)
[2021-03-15] MEDS ORDERED: *HR* OxyCODONE/APAP 10/325 TABLET PO PRN (19:30)
[2021-03-15] MEDS ORDERED: *HR* OxyCODONE/APAP 7.5/325 TABLET PO PRN (19:30)
[2021-03-15] MEDS: Ketorolac 15 MG/ML VIAL IVP SCH ×2 (19:43→23:17)
[2021-03-16] MEDS: *HR* Labetalol 20 MG/4 ML SYRINGE IVP PRN (03:36)
[2021-03-16] MEDS: *HR* Heparin 5,000 UNIT/ML VIAL SQ SCH ×2 (05:50→16:55)
[2021-03-16] MEDS: Ketorolac 15 MG/ML VIAL IVP SCH ×3 (06:22→20:22)
[2021-03-16] MEDS: *HR* Metoprolol 5 MG/5 ML VIAL IVP SCH ×3 (06:22→20:22)
[2021-03-16] MEDS: lisinopriL 20 MG TABLET PO SCH (09:33)
[2021-03-16] MEDS: Beer can PO SCH ×3 (09:35→20:09)
[2021-03-16] MEDS: *HR* OxyCODONE/APAP 10/325 TABLET PO PRN (14:45)
[2021-03-16] MEDS: Gabapentin 100 MG CAPSULE PO SCH ×2 (16:55→20:22)
[2021-03-17] MEDS: *HR* OxyCODONE/APAP 10/325 TABLET PO PRN ×3 (00:21→20:36)
[2021-03-17] MEDS: *HR* Metoprolol 5 MG/5 ML VIAL IVP SCH ×5 (00:23→23:49)
[2021-03-17] MEDS: Ketorolac 15 MG/ML VIAL IVP SCH ×5 (02:27→23:49)
[2021-03-17] MEDS: *HR* Heparin 5,000 UNIT/ML VIAL SQ SCH ×2 (06:10→17:48)
[2021-03-17] MEDS: lisinopriL 20 MG TABLET PO SCH (09:05)
[2021-03-17] MEDS: Gabapentin 100 MG CAPSULE PO SCH ×3 (09:05→20:36)
[2021-03-17] MEDS: Beer can PO SCH ×3 (11:59→17:48)
[2021-03-17] MEDS: *HR* Labetalol 20 MG/4 ML SYRINGE IVP PRN (14:56)
[2021-03-18] MEDS: *HR* Heparin 5,000 UNIT/ML VIAL SQ SCH ×2 (06:32→18:53)
[2021-03-18] MEDS: Ketorolac 15 MG/ML VIAL IVP SCH ×4 (06:32→23:53)
[2021-03-18] MEDS: *HR* Metoprolol 5 MG/5 ML VIAL IVP SCH ×4 (06:33→23:53)
[2021-03-18] MEDS: Gabapentin 100 MG CAPSULE PO SCH ×3 (09:50→20:36)
[2021-03-18] MEDS: lisinopriL 20 MG TABLET PO SCH (09:50)
[2021-03-18] MEDS: Beer can PO SCH ×3 (09:51→18:55)
[2021-03-18] MEDS: *HR* OxyCODONE/APAP 10/325 TABLET PO PRN ×2 (15:20→20:43)
[2021-03-19] MEDS: *HR* Metoprolol 5 MG/5 ML VIAL IVP SCH ×4 (06:51→22:51)
[2021-03-19] MEDS: *HR* Heparin 5,000 UNIT/ML VIAL SQ SCH ×2 (06:53→18:29)
[2021-03-19] MEDS: Ketorolac 15 MG/ML VIAL IVP SCH ×4 (06:54→22:54)
[2021-03-19] MEDS: Gabapentin 100 MG CAPSULE PO SCH ×3 (08:49→22:52)
[2021-03-19] MEDS: lisinopriL 20 MG TABLET PO SCH (08:49)
[2021-03-19] MEDS: Beer can PO SCH ×3 (08:50→22:51)
[2021-03-19] MEDS: *HR* OxyCODONE/APAP 7.5/325 TABLET PO PRN (08:52)
[2021-03-19] MEDS: *HR* OxyCODONE/APAP 10/325 TABLET PO PRN (22:52)
[2021-03-20] MEDS: *HR* Metoprolol 5 MG/5 ML VIAL IVP SCH ×3 (05:17→18:23)
[2021-03-20] MEDS: *HR* Heparin 5,000 UNIT/ML VIAL SQ SCH ×2 (05:17→18:22)
[2021-03-20] MEDS: Ketorolac 15 MG/ML VIAL IVP SCH ×3 (05:17→18:22)
[2021-03-20] MEDS: lisinopriL 20 MG TABLET PO SCH (10:01)
[2021-03-20] MEDS: Gabapentin 100 MG CAPSULE PO SCH ×3 (10:01→20:54)
[2021-03-20] MEDS: *HR* OxyCODONE/APAP 7.5/325 TABLET PO PRN (10:01)
[2021-03-20] MEDS: Beer can PO SCH ×3 (11:36→18:22)
[2021-03-21] MEDS: *HR* Metoprolol 5 MG/5 ML VIAL IVP SCH ×4 (01:39→17:16)
[2021-03-21] MEDS: *HR* Heparin 5,000 UNIT/ML VIAL SQ SCH ×2 (06:49→17:16)
[2021-03-21] MEDS: lisinopriL 20 MG TABLET PO SCH (08:09)
[2021-03-21] MEDS: Gabapentin 100 MG CAPSULE PO SCH ×2 (08:09→14:33)
[2021-03-21] MEDS: Beer can PO SCH ×3 (09:39→17:25)
[2021-03-21] MEDS: *HR* OxyCODONE/APAP 10/325 TABLET PO PRN (14:33)
[2021-03-22 05:07] VITALS: PULSE 64; O2SAT 96
[2021-03-22] MEDS: *HR* Heparin 5,000 UNIT/ML VIAL SQ SCH (05:07)
[2021-03-22] MEDS: *HR* Metoprolol 5 MG/5 ML VIAL IVP SCH ×2 (05:07)
[2021-03-22] MEDS: *HR* OxyCODONE/APAP 10/325 TABLET PO PRN (05:41)
[2021-03-22 06:31] VITALS: BP 122/66; TEMP 98.3
[2021-03-22] MEDS: Beer can PO SCH ×2 (08:46→09:22)
[2021-03-22] MEDS: Gabapentin 100 MG CAPSULE PO SCH ×2 (08:46)
[2021-03-22] MEDS: lisinopriL 20 MG TABLET PO SCH (08:46)
== END 2021-03-22 10:35 | DRG 241 ==
LOC: SAMDAY 11:57 → 3NENU 13:55
PROVIDERS: ADMIT Surgery; ATTEND Surgery

== ENCOUNTER 2022-01-01 12:31 | Inpatient (IN) ==
[2022-01-01] MEDS ORDERED: Ipratropium/Albuterol Neb 3 ML IH ONE (12:53)
[2022-01-01] MEDS ORDERED: Isovue-370 500 ML BOTTLE IVP ONE (12:53)
[2022-01-01 13:38] LABS: Basophils % 0.2 %; Eosinophils % 0.2 %; Hematocrit 36.6 % (37.5-50.1); Hemoglobin 11.7 g/dL (12.9-16.9); Immature Granulocytes % 0.4 % (0-4); Lymphocytes # 1.1 K/mcL (0.6-4.6); Lymphocytes % 9.3 %; Mean Corpuscular Hemoglobin 25.2 pg (28.0-33.3); Mean Corpuscular Volume 78.9 fL (83.0-100.0); Mean Platelet Volume 10.7 fL (9.4-12.4); Monocytes # 0.6 K/mcL (0.0-1.3); Neutrophils # 9.7 K/mcL (1.6-8.9); Platelet Count 263 K/mcL (140-400); Red Blood Count 4.64 M/mcL (4.19-5.50); Red Cell Distribution Width 18.9 % (11.5-14.5); Segmented Neutrophils % 84.9 %; White Blood Count 11.5 K/mcL (4.3-11.1)
[2022-01-01 13:46] LABS: INR 1.2; Prothrombin Time 13.1 Seconds (9.4-12.1)
[2022-01-01 13:49] LABS: Activated Partial Thrombo Time 34.9 Seconds (26.0-36.0)
[2022-01-01 13:58] LABS: BUN/Creatinine Ratio 20 (6-26); Blood Urea Nitrogen 14 mg/dL (8-23); Calcium 9.4 mg/dL (8.6-10.3); Carbon Dioxide 25 mEq/L (23-29); Chloride 102 mEq/L (98-107); Glucose 123 mg/dL (70-105); Osmolality,Calculated 286 (280-300); Potassium 3.9 mEq/L (3.5-5.1); Sodium 137 mEq/L (136-145); Troponin I 1.59 ng/mL (< 0.04); eGFR For African Americans > 60 (> 60); eGFR For Non-African Americans > 60 (> 60)
[2022-01-01 14:11] LABS: ABG Base Excess 0 mEq/L (-2 to 3); ABG HCO3 23 mEq/L (21-27); ABG Oxygen Saturation 93 % (95-98); ABG PCO2 29 mmHg (35-45); ABG PO2 58 mmHg (85-104); ABG TCO2 24 mEq/L (20-26)
[2022-01-01] MEDS ORDERED: Furosemide 40 MG/4 ML VIAL IVP ONE (14:56)
[2022-01-01] MEDS ORDERED: Ondansetron 4 MG/2 ML VIAL IVP PRN (15:29)
[2022-01-01] MEDS ORDERED: Naloxone 0.4 MG/ML INJ IVP PRN (15:29)
[2022-01-01] MEDS ORDERED: Acetaminophen 325 MG TABLET PO PRN (15:29)
[2022-01-01] MEDS ORDERED: *HR* Heparin 5,000 UNIT/ML VIAL IVP ONE (17:23)
[2022-01-01] MEDS ORDERED: *HR* Heparin 5,000 UNIT/ML VIAL IVP PRN (17:23)
[2022-01-01] MEDS ORDERED: Perflutren Lipid Microsphere 1.3 ML in 0.9 % Sodium Chloride 8.7 ML IVP PRN (17:24)
[2022-01-01] MEDS ORDERED: *HR* Metoprolol 5 MG/5 ML VIAL IVP PRN (17:42)
[2022-01-01 18:04] LABS: Hemoglobin 11.6 g/dL (12.9-16.9); Mean Corpuscular HGB Conc 32.2 g/dL (31.6-35.5); Mean Corpuscular Hemoglobin 25.4 pg (28.0-33.3); Mean Corpuscular Volume 78.8 fL (83.0-100.0); Mean Platelet Volume 10.4 fL (9.4-12.4); Platelet Count 254 K/mcL (140-400); Red Blood Count 4.57 M/mcL (4.19-5.50); Red Cell Distribution Width 18.8 % (11.5-14.5)
[2022-01-01 18:19] LABS: Activated Partial Thrombo Time 31.8 Seconds (26.0-36.0)
[2022-01-01 18:20] LABS: Heparin anti-factor XA UFH < 0.04 IU/mL (0.30-0.70)
[2022-01-01] MEDS: Heparin 25,000UNIT/250ML 1/2NS 25,000 UNIT/250 ML IV.SOLN IVC SCH (18:22)
[2022-01-01] MEDS: Melatonin 3 MG TABLET PO SCH (21:30)
[2022-01-01] MEDS: traZODone 50 MG TABLET PO SCH (21:30)
[2022-01-01] MEDS: Levalbuterol Neb 0.63 MG/3 ML IH SCH (22:34)
[2022-01-01] MEDS: Ipratropium Neb 0.5 MG NEBULIZER IH SCH (22:34)
[2022-01-01] MEDS: Budesonide Neb 0.5 MG/2 ML IH SCH (22:35)
[2022-01-02 01:40] LABS: Basophils % 0.3 %; Eosinophils # 0.1 K/mcL (0.0-0.6); Eosinophils % 1.1 %; Hematocrit 31.9 % (37.5-50.1); Hemoglobin 10.3 g/dL (12.9-16.9); Immature Granulocytes % 0.3 % (0-4); Lymphocytes # 2.2 K/mcL (0.6-4.6); Lymphocytes % 24.9 %; Mean Corpuscular HGB Conc 32.3 g/dL (31.6-35.5); Mean Corpuscular Volume 77.4 fL (83.0-100.0); Mean Platelet Volume 10.7 fL (9.4-12.4); Monocytes # 0.7 K/mcL (0.0-1.3); Monocytes % 8.2 %; Neutrophils # 5.8 K/mcL (1.6-8.9); Platelet Count 216 K/mcL (140-400); Red Blood Count 4.12 M/mcL (4.19-5.50); Red Cell Distribution Width 18.6 % (11.5-14.5); Segmented Neutrophils % 65.2 %; White Blood Count 8.9 K/mcL (4.3-11.1)
[2022-01-02 02:00] LABS: BUN/Creatinine Ratio 26 (6-26); Blood Urea Nitrogen 18 mg/dL (8-23); Calcium 8.7 mg/dL (8.6-10.3); Carbon Dioxide 24 mEq/L (23-29); Chloride 103 mEq/L (98-107); Glucose 98 mg/dL (70-105); Magnesium 1.6 mg/dL (1.6-2.6); Osmolality,Calculated 286 (280-300); Potassium 3.3 mEq/L (3.5-5.1); Sodium 137 mEq/L (136-145); eGFR For African Americans > 60 (> 60); eGFR For Non-African Americans > 60 (> 60)
[2022-01-02] MEDS: Levalbuterol Neb 0.63 MG/3 ML IH SCH ×4 (03:40→22:31)
[2022-01-02] MEDS: Ipratropium Neb 0.5 MG NEBULIZER IH SCH ×4 (03:40→22:31)
[2022-01-02] MEDS: Nicotine 14 MG PATCH.TD24 TD SCH (07:49)
[2022-01-02] MEDS: Pregabalin 75 MG CAPSULE PO SCH ×2 (09:38→21:56)
[2022-01-02] MEDS: Aspirin Enteric Coated 81 MG Tablet PO SCH (09:39)
[2022-01-02] MEDS: Furosemide 40 MG/4 ML VIAL IVP SCH (09:39)
[2022-01-02] MEDS: predniSONE 20 MG TABLET PO SCH (09:39)
[2022-01-02] MEDS: Budesonide Neb 0.5 MG/2 ML IH SCH ×2 (09:55→22:31)
[2022-01-02] MEDS: *HR* Heparin 5,000 UNIT/ML VIAL IVP PRN ×2 (11:11→18:02)
[2022-01-02] MEDS ORDERED: Isovue-370 500 ML BOTTLE IVP ONE (13:54)
[2022-01-02] MEDS: Metoprolol XL (24 HR) Succ 25 MG TAB.ER.24H PO SCH (14:45)
[2022-01-02 15:51] LABS: Adenovirus Not Detected (Not Detect); Bordetella Pertussis Not Detected (Not Detect); Coronavirus 229E Not Detected (Not Detect); Coronavirus HKU1 Not Detected (Not Detect); Coronavirus NL63 Not Detected (Not Detect); Coronavirus OC43 Not Detected (Not Detect); Human Metapneumovirus Not Detected (Not Detect); Human Rhinovirus/Enterovirus Not Detected (Not Detect); Influenza A Subtype 2009 H1 Not Detected (Not Detect); Influenza B Not Detected (Not Detect); Parainfluenza Virus 1 Not Detected (Not Detect); Parainfluenza Virus 2 DETECTED (Not Detect); Parainfluenza Virus 3 Not Detected (Not Detect); Parainfluenza Virus 4 Not Detected (Not Detect); Respiratory Syncytial Virus Not Detected (Not Detect); SARS-CoV-2 Not Detected (Not Detect)
[2022-01-02 15:52] LABS: Chlamydophila pneumoniae Not Detected (Not Detect); Mycoplasma pneumoniae Not Detected (Not Detect)
[2022-01-02] MEDS: traZODone 50 MG TABLET PO SCH (21:55)
[2022-01-02] MEDS: Melatonin 3 MG TABLET PO SCH (21:55)
[2022-01-03] MEDS: Heparin 25,000UNIT/250ML 1/2NS 25,000 UNIT/250 ML IV.SOLN IVC SCH ×2 (00:44→20:29)
[2022-01-03 01:34] LABS: Basophils % 0.1 %; Eosinophils % 0.1 %; Hematocrit 30.7 % (37.5-50.1); Hemoglobin 10.1 g/dL (12.9-16.9); Immature Granulocytes % 0.3 % (0-4); Lymphocytes # 1.3 K/mcL (0.6-4.6); Mean Corpuscular HGB Conc 32.9 g/dL (31.6-35.5); Mean Corpuscular Hemoglobin 25.8 pg (28.0-33.3); Mean Corpuscular Volume 78.3 fL (83.0-100.0); Mean Platelet Volume 11.5 fL (9.4-12.4); Monocytes # 0.6 K/mcL (0.0-1.3); Monocytes % 8.6 %; Neutrophils # 5.5 K/mcL (1.6-8.9); Platelet Count 230 K/mcL (140-400); Red Blood Count 3.92 M/mcL (4.19-5.50); Red Cell Distribution Width 18.6 % (11.5-14.5); Segmented Neutrophils % 73.9 %; White Blood Count 7.4 K/mcL (4.3-11.1)
[2022-01-03 01:43] LABS: BUN/Creatinine Ratio 30 (6-26); Blood Urea Nitrogen 28 mg/dL (8-23); Calcium 8.3 mg/dL (8.6-10.3); Carbon Dioxide 23 mEq/L (23-29); Chloride 101 mEq/L (98-107); Glucose 182 mg/dL (70-105); Magnesium 1.5 mg/dL (1.6-2.6); Osmolality,Calculated 288 (280-300); Potassium 3.8 mEq/L (3.5-5.1); Sodium 134 mEq/L (136-145); eGFR For African Americans > 60 (> 60); eGFR For Non-African Americans > 60 (> 60)
[2022-01-03] MEDS: Levalbuterol Neb 0.63 MG/3 ML IH SCH ×4 (03:31→21:37)
[2022-01-03] MEDS: Ipratropium Neb 0.5 MG NEBULIZER IH SCH ×4 (03:31→21:37)
[2022-01-03] MEDS: Nicotine 14 MG PATCH.TD24 TD SCH (09:28)
[2022-01-03] MEDS: predniSONE 20 MG TABLET PO SCH (09:28)
[2022-01-03] MEDS: Metoprolol XL (24 HR) Succ 25 MG TAB.ER.24H PO SCH (09:28)
[2022-01-03] MEDS: Aspirin Enteric Coated 81 MG Tablet PO SCH (09:28)
[2022-01-03] MEDS: Pregabalin 75 MG CAPSULE PO SCH ×2 (09:28→20:48)
[2022-01-03] MEDS: Furosemide 40 MG/4 ML VIAL IVP SCH (09:28)
[2022-01-03] MEDS: Budesonide Neb 0.5 MG/2 ML IH SCH ×2 (10:37→21:37)
[2022-01-03] MEDS ORDERED: *HR* Midazolam HCl 2 MG/2 ML VIAL ONE (14:18)
[2022-01-03] MEDS ORDERED: *HR* FentaNYL (PF) 100 MCG/2 ML VIAL ONE (14:18)
[2022-01-03] MEDS ORDERED: Heparin 1,000 UNITS/500 mL 500 ML ONE (14:19)
[2022-01-03] MEDS ORDERED: *HR* Heparin 10,000 UNIT/10 ML VIAL ONE (14:19)
[2022-01-03] MEDS ORDERED: 0.9 % Sodium Chloride 2,000 ML ONE (14:19)
[2022-01-03] MEDS ORDERED: Nitroglycerin 1,000 MCG/5 ML VIAL IV ONE (14:19)
[2022-01-03] MEDS ORDERED: ISOVUE-370 200 ML INFUS..BTL ONE (14:19)
[2022-01-03] MEDS ORDERED: *HR* LORazepam 2 MG/ML VIAL IVP PRN (18:44)
[2022-01-03 19:02] LABS: INR 1.1; Prothrombin Time 12.1 Seconds (9.4-12.1)
[2022-01-03 19:05] LABS: Activated Partial Thrombo Time 28.2 Seconds (26.0-36.0)
[2022-01-03 19:12] LABS: Chol/HDL Ratio 2.4 (0-4.9)
[2022-01-03 19:28] LABS: Estimated Average Glucose 134 mg/dl; Hemoglobin A1C 6.3 %
[2022-01-03 20:36] LABS: Troponin I 0.63 ng/mL (< 0.04)
[2022-01-03] MEDS: Folic Acid 1 MG TABLET PO SCH (20:48)
[2022-01-03] MEDS: Melatonin 3 MG TABLET PO SCH (20:48)
[2022-01-03] MEDS: Vitamin B Complex/Vit C/Vit E 1 EACH TABLET PO SCH (20:48)
[2022-01-03] MEDS: Thiamine (B-1) 100 MG TABLET PO SCH (20:48)
[2022-01-03] MEDS: traZODone 50 MG TABLET PO SCH (20:49)
[2022-01-03 20:52] LABS: Magnesium 1.9 mg/dL (1.6-2.6)
[2022-01-03] MEDS: Chlorhexidine Rinse 15 ML MOUTHWASH MM SCH (20:58)
[2022-01-04] MEDS: Ipratropium Neb 0.5 MG NEBULIZER IH SCH ×3 (03:23→15:21)
[2022-01-04] MEDS: Levalbuterol Neb 0.63 MG/3 ML IH SCH ×2 (03:23→07:58)
[2022-01-04 04:14] LABS: Basophils % 0.4 %; Eosinophils % 0.2 %; Hematocrit 35.5 % (37.5-50.1); Hemoglobin 11.1 g/dL (12.9-16.9); Immature Granulocytes % 0.2 % (0-4); Lymphocytes # 1.6 K/mcL (0.6-4.6); Mean Corpuscular HGB Conc 31.3 g/dL (31.6-35.5); Mean Corpuscular Hemoglobin 26.1 pg (28.0-33.3); Mean Corpuscular Volume 83.5 fL (83.0-100.0); Mean Platelet Volume 10.5 fL (9.4-12.4); Monocytes # 0.7 K/mcL (0.0-1.3); Neutrophils # 6.1 K/mcL (1.6-8.9); Platelet Count 198 K/mcL (140-400); Red Blood Count 4.25 M/mcL (4.19-5.50); Red Cell Distribution Width 19.2 % (11.5-14.5); Segmented Neutrophils % 72.2 %; White Blood Count 8.4 K/mcL (4.3-11.1)
[2022-01-04 04:42] LABS: BUN/Creatinine Ratio 33 (6-26); Blood Urea Nitrogen 25 mg/dL (8-23); Calcium 8.6 mg/dL (8.6-10.3); Carbon Dioxide 25 mEq/L (23-29); Chloride 104 mEq/L (98-107); Glucose 146 mg/dL (70-105); Magnesium 2.2 mg/dL (1.6-2.6); Osmolality,Calculated 289 (280-300); Phosphorous 3.1 mg/dL (2.7-4.5); Potassium 3.7 mEq/L (3.5-5.1); Sodium 136 mEq/L (136-145); eGFR For African Americans > 60 (> 60); eGFR For Non-African Americans > 60 (> 60)
[2022-01-04] MEDS ORDERED: Aspirin 81 MG TAB.CHEW PO ONE (06:00)
[2022-01-04] MEDS: Budesonide Neb 0.5 MG/2 ML IH SCH (07:58)
[2022-01-04] MEDS ORDERED: Norepinephrine 4 MG in 0.9 % Sodium Chloride 250 ML IVC PRN (08:04)
[2022-01-04] MEDS ORDERED: Heparin 15,000 UNIT in 0.9 % Sodium Chloride 500 ML IV ONE (08:15)
[2022-01-04] MEDS ORDERED: del Nido Cardioplegia Solution PF ONE ×2 (08:15)
[2022-01-04] MEDS ORDERED: Buckersberg's Blood Cardioplegia PF ONE (08:15)
[2022-01-04] MEDS: Pregabalin 75 MG CAPSULE PO SCH ×2 (08:34→20:41)
[2022-01-04] MEDS: predniSONE 20 MG TABLET PO SCH (08:34)
[2022-01-04] MEDS: Chlorhexidine Rinse 15 ML MOUTHWASH MM SCH (08:35)
[2022-01-04] MEDS: Aspirin Enteric Coated 81 MG Tablet PO SCH (08:35)
[2022-01-04] MEDS: Vitamin B Complex/Vit C/Vit E 1 EACH TABLET PO SCH (08:35)
[2022-01-04] MEDS: Furosemide 40 MG TABLET PO SCH (08:35)
[2022-01-04] MEDS: Nicotine 14 MG PATCH.TD24 TD SCH (08:35)
[2022-01-04] MEDS: Folic Acid 1 MG TABLET PO SCH (08:35)
[2022-01-04] MEDS: Thiamine (B-1) 100 MG TABLET PO SCH (08:35)
[2022-01-04] MEDS ORDERED: CeFAZolin Syr 2,000MG/20 ML 2,000 MG/20 ML SYRINGE IVPB ONE (10:00)
[2022-01-04] MEDS ORDERED: Papaverine 60 MG/2 ML VIAL IVP ONE (10:49)
[2022-01-04] MEDS ORDERED: NiCARdipine 2.5 MG/10 ML Syringe IVPB ONE (11:22)
[2022-01-04] MEDS ORDERED: DOBUTamine 1,000 MG/250 ML BAG ONE (11:22)
[2022-01-04] MEDS ORDERED: *HR* Midazolam HCl 5 MG/5 ML VIAL IVP ONE ×2 (11:25)
[2022-01-04] MEDS ORDERED: *HR* FentaNYL (PF) 1,000 MCG/20 ML VIAL ONE (11:25)
[2022-01-04] MEDS ORDERED: *HR* Propofol 200 MG/20 ML VIAL IVP ONE (11:25)
[2022-01-04] MEDS ORDERED: Lidocaine 2% Syringe 100 MG/5 ML ONE (11:37)
[2022-01-04] MEDS ORDERED: *HR* Rocuronium Bromide 50 MG/5 ML VIAL ONE ×3 (11:37→17:51)
[2022-01-04] MEDS ORDERED: Famotidine 20 MG/2 ML VIAL ONE (11:42)
[2022-01-04] MEDS ORDERED: *HR* Magnesium Sulfate 1 GM/2 ML VIAL ONE (11:42)
[2022-01-04] MEDS ORDERED: Tranexamic Acid 1,000 MG/10 ML VIAL IR ONE (12:00)
[2022-01-04] MEDS ORDERED: Mannitol 25% vial 12.5 GM/50 ML VIAL IVPB ONE (12:00)
[2022-01-04] MEDS ORDERED: *HR* Phenylephrine 10 MG/ML VIAL IVC ONE (12:00)
[2022-01-04] MEDS ORDERED: *HR* Heparin 10,000 UNIT/10 ML VIAL IR ONE (12:00)
[2022-01-04] MEDS ORDERED: Albumin Human 25% 25 GM/100 ML IV.SOLN IVPB ONE (12:00)
[2022-01-04] MEDS ORDERED: *HR* Magnesium Sulfate 2 GM/50 ML PIGGYBACK IVPB ONE (12:00)
[2022-01-04] MEDS ORDERED: Lidocaine 2% Syringe 100 MG/5 ML IVP ONE (12:00)
[2022-01-04 12:01] LABS: Troponin I 0.68 ng/mL (< 0.04)
[2022-01-04 12:03] LABS: Albumin 4.1 g/dL (3.5-5.7); Albumin/Globulin Ratio 1.4 (1.1-2.2); Bilirubin,Indirect 0.3 mg/dL (0.0-1.0); Bilirubin,Total 0.3 mg/dL (0.3-1.0); Globulin 2.9 g/dL (2.4-3.5)
[2022-01-04] MEDS ORDERED: Lidocaine/EPI 1:100k 2% 20 ML VIAL ONE (12:48)
[2022-01-04] MEDS ORDERED: Lidocaine/EPI 1:100k 1% 50 ML VIAL ONE (12:48)
[2022-01-04] MEDS ORDERED: Insulin Regular, Human 100 UNIT/ML IV PRN (13:50)
[2022-01-04] MEDS ORDERED: Potassium Chloride 40 MEQ/200 ML BAG IVPB PRN (13:50)
[2022-01-04] MEDS ORDERED: *HR* Dextrose 50 % in Water (Syg) 50 ML SYRINGE IVP PRN (13:50)
[2022-01-04] MEDS ORDERED: Calcium Gluconate 1gm/50mL 1 GM/50 ML BAG IVPB PRN (13:50)
[2022-01-04] MEDS ORDERED: Nitroprusside 50 MG in D5% in Water 250 ML IVC SCH (14:00)
[2022-01-04] MEDS ORDERED: Tranexamic Acid 1,000 MG/10 ML VIAL ONE (14:22)
[2022-01-04] MEDS ORDERED: *HR* FentaNYL (PF) 250 MCG/5 ML VIAL ONE (14:55)
[2022-01-04 15:48] LABS: ABG Base Excess -3 mEq/L (-2 to 3); ABG Chloride 105 mEq/L (98-107); ABG Glucose 115 mg/dL (60-95); ABG HCO3 22 mEq/L (21-27); ABG Ionized Calcium 1.08 mmol/L (1.15-1.35); ABG Oxygen Saturation 99 % (95-98); ABG PCO2 42 mmHg (35-45); ABG PH 7.34 pH Units (7.32-7.45); ABG PO2 142 mmHg (85-104); ABG TCO2 24 mEq/L (20-26)
[2022-01-04] MEDS ORDERED: ceFAZolin 2,000 MG in 0.9 % Sodium Chloride 100 ML IVPB ONE (16:45)
[2022-01-04 16:59] LABS: ABG Base Excess -4 mEq/L (-2 to 3); ABG Chloride 104 mEq/L (98-107); ABG Glucose 204 mg/dL (60-95); ABG HCO3 22 mEq/L (21-27); ABG Ionized Calcium 1.13 mmol/L (1.15-1.35); ABG Oxygen Saturation 100 % (95-98); ABG PCO2 44 mmHg (35-45); ABG PH 7.31 pH Units (7.32-7.45); ABG PO2 190 mmHg (85-104); ABG TCO2 23 mEq/L (20-26)
[2022-01-04] MEDS ORDERED: Calcium Gluconate 1,000 MG/10 ML VIAL ONE (17:44)
[2022-01-04] MEDS ORDERED: Protamine Sulfate 250 MG/25 ML VIAL IVP ONE (17:44)
[2022-01-04] MEDS ORDERED: niCARdipine 20 MG/200 ML MLS IVC ONE (17:47)
[2022-01-04 17:50] LABS: ABG Base Excess -1 mEq/L (-2 to 3); ABG Chloride 100 mEq/L (98-107); ABG Glucose 183 mg/dL (60-95); ABG HCO3 23 mEq/L (21-27); ABG Ionized Calcium 0.92 mmol/L (1.15-1.35); ABG Oxygen Saturation 100 % (95-98); ABG PCO2 34 mmHg (35-45); ABG PH 7.44 pH Units (7.32-7.45); ABG PO2 583 mmHg (85-104); ABG TCO2 24 mEq/L (20-26)
[2022-01-04] MEDS ORDERED: Albumin Human 5% 12.5 GM/250 ML IV.SOLN ONE (18:13)
[2022-01-04 18:17] LABS: ABG Base Excess -4 mEq/L (-2 to 3); ABG Chloride 102 mEq/L (98-107); ABG Glucose 204 mg/dL (60-95); ABG HCO3 23 mEq/L (21-27); ABG Ionized Calcium 1.79 mmol/L (1.15-1.35); ABG Oxygen Saturation 100 % (95-98); ABG PCO2 46 mmHg (35-45); ABG PO2 532 mmHg (85-104); ABG TCO2 24 mEq/L (20-26)
[2022-01-04 20:09] LABS: Basophils % 0.1 %; Eosinophils % 0.1 %; Hematocrit 39.3 % (37.5-50.1); Immature Granulocytes % 0.6 % (0-4); Lymphocytes % 5.5 %; Mean Corpuscular HGB Conc 31.8 g/dL (31.6-35.5); Mean Corpuscular Hemoglobin 26.2 pg (28.0-33.3); Mean Corpuscular Volume 82.2 fL (83.0-100.0); Monocytes # 0.6 K/mcL (0.0-1.3); Monocytes % 3.2 %; Platelet Count 130 K/mcL (140-400); Red Blood Count 4.78 M/mcL (4.19-5.50); Red Cell Distribution Width 19.1 % (11.5-14.5); Segmented Neutrophils % 90.5 %
[2022-01-04 20:10] LABS: Hemoglobin 12.5 g/dL (12.9-16.9); Neutrophils # 15.7 K/mcL (1.6-8.9); White Blood Count 17.3 K/mcL (4.3-11.1)
[2022-01-04 20:12] LABS: ABG Base Excess -4 mEq/L (-2 to 3); ABG HCO3 24 mEq/L (21-27); ABG Oxygen Saturation 98 % (95-98); ABG PCO2 52 mmHg (35-45); ABG PH 7.27 pH Units (7.32-7.45); ABG PO2 122 mmHg (85-104); ABG TCO2 25 mEq/L (20-26); Blood Gas VT 500 cc
[2022-01-04] MEDS: Budesonide/Formoterol 160/4.5 1 PUFF INH IH SCH (20:12)
[2022-01-04] MEDS: Ipratropium 1 PUFF INHALER IH SCH ×2 (20:12→23:31)
[2022-01-04 20:16] LABS: INR 1.1; Prothrombin Time 12.6 Seconds (9.4-12.1)
[2022-01-04] MEDS: DOBUTamine 1,000 MG/250 ML BAG IVC SCH (20:18)
[2022-01-04 20:19] LABS: Activated Partial Thrombo Time 19.4 Seconds (26.0-36.0)
[2022-01-04] MEDS: Norepinephrine 4 MG/254 ML IV.SOLN IVC SCH (20:19)
[2022-01-04 20:25] LABS: BUN/Creatinine Ratio 28 (6-26); Blood Urea Nitrogen 19 mg/dL (8-23); Calcium 8.8 mg/dL (8.6-10.3); Carbon Dioxide 25 mEq/L (23-29); Chloride 107 mEq/L (98-107); Glucose 158 mg/dL (70-105); Magnesium 2.7 mg/dL (1.6-2.6); Osmolality,Calculated 290 (280-300); Potassium 4.5 mEq/L (3.5-5.1); Sodium 137 mEq/L (136-145); eGFR For African Americans > 60 (> 60); eGFR For Non-African Americans > 60 (> 60)
[2022-01-04] MEDS: traZODone 50 MG TABLET PO SCH (20:41)
[2022-01-04] MEDS: CeFAZolin 2 GM/120 ML BAG IVPB SCH (20:42)
[2022-01-04] MEDS ORDERED: Aspirin Enteric Coated 81 MG Tablet PO ONE (21:00)
[2022-01-04] MEDS ORDERED: Chlorhexidine Rinse 15 ML MOUTHWASH MM SCH (21:00)
[2022-01-04] MEDS: *HR* OxyCODONE/APAP 5/325 TABLET PO PRN (22:25)
[2022-01-04 22:39] LABS: ABG Base Excess -3 mEq/L (-2 to 3); ABG HCO3 23 mEq/L (21-27); ABG Oxygen Saturation 93 % (95-98); ABG PCO2 44 mmHg (35-45); ABG PH 7.33 pH Units (7.32-7.45); ABG PO2 73 mmHg (85-104); ABG TCO2 24 mEq/L (20-26); Blood Gas VT 500 cc
[2022-01-04] MEDS: Albumin Human 5% 12.5 GM/250 ML IV.SOLN IVPB PRN (23:01)
[2022-01-05] MEDS: Albumin Human 5% 12.5 GM/250 ML IV.SOLN IVPB PRN (00:18)
[2022-01-05] MEDS: *HR* FentaNYL (PF) 100 MCG/2 ML VIAL IVP PRN ×2 (01:04→03:39)
[2022-01-05 02:03] LABS: ABG Base Excess -1 mEq/L (-2 to 3); ABG HCO3 24 mEq/L (21-27); ABG Oxygen Saturation 94 % (95-98); ABG PCO2 41 mmHg (35-45); ABG PH 7.37 pH Units (7.32-7.45); ABG PO2 73 mmHg (85-104); ABG TCO2 25 mEq/L (20-26); Blood Gas VT 500 cc
[2022-01-05 02:33] LABS: ABG Base Excess -1 mEq/L (-2 to 3); ABG HCO3 24 mEq/L (21-27); ABG Oxygen Saturation 95 % (95-98); ABG PCO2 40 mmHg (35-45); ABG PH 7.38 pH Units (7.32-7.45); ABG PO2 78 mmHg (85-104); ABG TCO2 25 mEq/L (20-26); Blood Gas Pressure Support 8 cm H2O
[2022-01-05 03:21] LABS: Basophils % 0.1 %
[2022-01-05 03:23] LABS: Hematocrit 33.2 % (37.5-50.1); Hemoglobin 10.6 g/dL (12.9-16.9); Immature Granulocytes % 0.5 % (0-4); Immature Platelets 7.4 % (1.1-6.1); Lymphocytes # 0.7 K/mcL (0.6-4.6); Lymphocytes % 4.6 %; Mean Corpuscular HGB Conc 31.9 g/dL (31.6-35.5); Mean Corpuscular Hemoglobin 25.9 pg (28.0-33.3); Mean Platelet Volume 11.3 fL (9.4-12.4); Neutrophils # 12.9 K/mcL (1.6-8.9); Platelet Count 124 K/mcL (140-400); Red Cell Distribution Width 18.8 % (11.5-14.5); Segmented Neutrophils % 87.8 %; White Blood Count 14.7 K/mcL (4.3-11.1)
[2022-01-05 03:32] LABS: INR 1.1; Prothrombin Time 12.4 Seconds (9.4-12.1)
[2022-01-05 03:35] LABS: BUN/Creatinine Ratio 27 (6-26); Blood Urea Nitrogen 22 mg/dL (8-23); Calcium 8.7 mg/dL (8.6-10.3); Carbon Dioxide 25 mEq/L (23-29); Chloride 106 mEq/L (98-107); Glucose 135 mg/dL (70-105); Magnesium 2.2 mg/dL (1.6-2.6); Osmolality,Calculated 289 (280-300); Potassium 4.6 mEq/L (3.5-5.1); Sodium 137 mEq/L (136-145); eGFR For African Americans > 60 (> 60); eGFR For Non-African Americans > 60 (> 60)
[2022-01-05 03:36] LABS: Activated Partial Thrombo Time 30.5 Seconds (26.0-36.0)
[2022-01-05] MEDS: Ipratropium 1 PUFF INHALER IH SCH ×6 (03:51→23:33)
[2022-01-05 03:58] LABS: ABG Base Excess 0 mEq/L (-2 to 3); ABG HCO3 25 mEq/L (21-27); ABG Oxygen Saturation 95 % (95-98); ABG PCO2 45 mmHg (35-45); ABG PH 7.36 pH Units (7.32-7.45); ABG PO2 77 mmHg (85-104); ABG TCO2 27 mEq/L (20-26)
[2022-01-05] MEDS: CeFAZolin 2 GM/120 ML BAG IVPB SCH ×3 (04:00→21:32)
[2022-01-05] MEDS: *HR* OxyCODONE/APAP 5/325 TABLET PO PRN ×5 (05:11→23:32)
[2022-01-05] MEDS: Budesonide/Formoterol 160/4.5 1 PUFF INH IH SCH ×2 (07:22→20:21)
[2022-01-05] MEDS ORDERED: Metoprolol XL (24 HR) Succ 25 MG TAB.ER.24H PO SCH (09:00)
[2022-01-05] MEDS ORDERED: Pantoprazole 40 MG VIAL IVP SCH (09:00)
[2022-01-05] MEDS ORDERED: predniSONE 20 MG TABLET PO SCH (09:00)
[2022-01-05] MEDS: Thiamine (B-1) 100 MG TABLET PO SCH (09:08)
[2022-01-05] MEDS: Aspirin Enteric Coated 81 MG Tablet PO SCH (09:08)
[2022-01-05] MEDS: Furosemide 40 MG TABLET PO SCH (09:09)
[2022-01-05] MEDS: Pregabalin 75 MG CAPSULE PO SCH ×2 (09:09→21:32)
[2022-01-05] MEDS: Vitamin B Complex/Vit C/Vit E 1 EACH TABLET PO SCH (09:09)
[2022-01-05] MEDS: Nicotine 14 MG PATCH.TD24 TD SCH (09:09)
[2022-01-05] MEDS: Folic Acid 1 MG TABLET PO SCH (09:11)
[2022-01-05] MEDS: DOBUTamine 1,000 MG/250 ML BAG IVC SCH (14:08)
[2022-01-05] MEDS: Norepinephrine 4 MG/254 ML IV.SOLN IVC SCH (14:09)
[2022-01-05] MEDS: Insulin LISPRO 300 UNITS/3 ML VIAL SUBQ SCH (16:32)
[2022-01-05] MEDS ORDERED: Insulin LISPRO 300 UNITS/3 ML VIAL SUBQ SCH (21:00)
[2022-01-05] MEDS: Melatonin 3 MG TABLET PO SCH (21:32)
[2022-01-05] MEDS: traZODone 50 MG TABLET PO SCH (21:32)
[2022-01-06] MEDS: CeFAZolin 2 GM/120 ML BAG IVPB SCH (04:11)
[2022-01-06] MEDS: Ipratropium 1 PUFF INHALER IH SCH ×6 (04:13→23:39)
[2022-01-06 04:48] LABS: Basophils % 0.2 %; Eosinophils % 0.1 %; Hematocrit 29.4 % (37.5-50.1); Hemoglobin 9.5 g/dL (12.9-16.9); Immature Granulocytes % 0.4 % (0-4); Immature Platelets 10.2 % (1.1-6.1); Lymphocytes # 1.7 K/mcL (0.6-4.6); Lymphocytes % 16.6 %; Mean Corpuscular HGB Conc 32.3 g/dL (31.6-35.5); Mean Corpuscular Hemoglobin 26.5 pg (28.0-33.3); Mean Corpuscular Volume 81.9 fL (83.0-100.0); Mean Platelet Volume 10.9 fL (9.4-12.4); Monocytes % 10.2 %; Neutrophils # 7.4 K/mcL (1.6-8.9); Platelet Count 117 K/mcL (140-400); Red Blood Count 3.59 M/mcL (4.19-5.50); Red Cell Distribution Width 19.7 % (11.5-14.5); Segmented Neutrophils % 72.5 %; White Blood Count 10.2 K/mcL (4.3-11.1)
[2022-01-06 04:49] LABS: BUN/Creatinine Ratio 38 (6-26); Blood Urea Nitrogen 28 mg/dL (8-23); Calcium 8.5 mg/dL (8.6-10.3); Carbon Dioxide 28 mEq/L (23-29); Chloride 100 mEq/L (98-107); Glucose 115 mg/dL (70-105); Magnesium 1.6 mg/dL (1.6-2.6); Osmolality,Calculated 282 (280-300); Potassium 4.3 mEq/L (3.5-5.1); Sodium 133 mEq/L (136-145); eGFR For African Americans > 60 (> 60); eGFR For Non-African Americans > 60 (> 60)
[2022-01-06] MEDS: Budesonide/Formoterol 160/4.5 1 PUFF INH IH SCH ×3 (07:52→19:52)
[2022-01-06] MEDS ORDERED: Ondansetron 4 MG/2 ML VIAL IVP PRN (08:28)
[2022-01-06] MEDS ORDERED: Naloxone 0.4 MG/ML INJ IVP PRN (08:28)
[2022-01-06] MEDS ORDERED: Potassium Chloride 40 MEQ/200 ML BAG IVPB PRN (08:28)
[2022-01-06] MEDS ORDERED: Acetaminophen 325 MG TABLET PO PRN (08:28)
[2022-01-06] MEDS ORDERED: *HR* LORazepam 2 MG/ML VIAL IVP PRN (08:28)
[2022-01-06] MEDS ORDERED: Calcium Gluconate 1gm/50mL 1 GM/50 ML BAG IVPB PRN (08:28)
[2022-01-06] MEDS ORDERED: Insulin Regular, Human 100 UNIT/ML IV PRN (08:28)
[2022-01-06] MEDS ORDERED: *HR* Dextrose 50 % in Water (Syg) 50 ML SYRINGE IVP PRN (08:28)
[2022-01-06] MEDS: Pregabalin 75 MG CAPSULE PO SCH ×2 (09:00→20:04)
[2022-01-06] MEDS: Aspirin Enteric Coated 81 MG Tablet PO SCH (09:00)
[2022-01-06] MEDS ORDERED: Famotidine 20 MG TABLET PO SCH (09:00)
[2022-01-06] MEDS: Folic Acid 1 MG TABLET PO SCH (09:01)
[2022-01-06] MEDS: Furosemide 40 MG TABLET PO SCH (09:01)
[2022-01-06] MEDS: predniSONE 20 MG TABLET PO SCH (09:01)
[2022-01-06] MEDS: Nicotine 14 MG PATCH.TD24 TD SCH (09:02)
[2022-01-06] MEDS: Vitamin B Complex/Vit C/Vit E 1 EACH TABLET PO SCH (09:02)
[2022-01-06] MEDS: Famotidine 20 MG TABLET PO SCH ×2 (09:02→20:04)
[2022-01-06] MEDS: Thiamine (B-1) 100 MG TABLET PO SCH (09:02)
[2022-01-06] MEDS: Insulin LISPRO 300 UNITS/3 ML VIAL SUBQ SCH ×3 (11:55→20:13)
[2022-01-06] MEDS ORDERED: CeFAZolin 2 GM/120 ML BAG IVPB SCH (13:00)
[2022-01-06] MEDS: *HR* OxyCODONE/APAP 5/325 TABLET PO PRN (19:12)
[2022-01-06] MEDS: traZODone 50 MG TABLET PO SCH (20:03)
[2022-01-06] MEDS: Melatonin 3 MG TABLET PO SCH (20:04)
[2022-01-07 03:31] LABS: Basophils % 0.1 %; Eosinophils % 0.1 %; Hemoglobin 8.8 g/dL (12.9-16.9); Immature Granulocytes % 0.5 % (0-4)
[2022-01-07 03:33] LABS: Hematocrit 26.8 % (37.5-50.1); Immature Platelets 8.6 % (1.1-6.1); Lymphocytes # 1.3 K/mcL (0.6-4.6); Mean Corpuscular HGB Conc 32.8 g/dL (31.6-35.5); Mean Corpuscular Hemoglobin 26.7 pg (28.0-33.3); Mean Corpuscular Volume 81.2 fL (83.0-100.0); Mean Platelet Volume 10.6 fL (9.4-12.4); Monocytes # 0.9 K/mcL (0.0-1.3); Platelet Count 105 K/mcL (140-400); Red Cell Distribution Width 20.2 % (11.5-14.5); Segmented Neutrophils % 77.3 %; White Blood Count 10.3 K/mcL (4.3-11.1)
[2022-01-07] MEDS: Ipratropium 1 PUFF INHALER IH SCH ×6 (03:40→22:59)
[2022-01-07 03:49] LABS: BUN/Creatinine Ratio 36 (6-26); Blood Urea Nitrogen 20 mg/dL (8-23); Calcium 8.4 mg/dL (8.6-10.3); Carbon Dioxide 29 mEq/L (23-29); Chloride 99 mEq/L (98-107); Glucose 119 mg/dL (70-105); Magnesium 1.8 mg/dL (1.6-2.6); Osmolality,Calculated 282 (280-300); Potassium 3.9 mEq/L (3.5-5.1); Sodium 134 mEq/L (136-145); eGFR For African Americans > 60 (> 60); eGFR For Non-African Americans > 60 (> 60)
[2022-01-07] MEDS: *HR* OxyCODONE/APAP 5/325 TABLET PO PRN (05:09)
[2022-01-07] MEDS ORDERED: *HR* Metoprolol 5 MG/5 ML VIAL IVP ONE ×2 (05:21→06:25)
[2022-01-07] MEDS ORDERED: Calcium Gluconate 1gm/50mL 1 GM/50 ML BAG IVPB ONE (05:23)
[2022-01-07] MEDS ORDERED: *HR* LORazepam 2 MG/ML VIAL IVP PRN ×2 (06:33)
[2022-01-07] MEDS ORDERED: 0.9 % Sodium Chloride 250 ML IVC ONE (07:18)
[2022-01-07] MEDS ORDERED: 0.9 % Sodium Chloride 1,000 ML ONE (07:18)
[2022-01-07] MEDS ORDERED: Amiodarone Premix 150 MG/100 ML BAG IVPB ONE (07:20)
[2022-01-07] MEDS ORDERED: Amiodarone Premix 360 MG/200 ML BAG IVC ONE ×2 (07:21→07:40)
[2022-01-07 07:23] LABS: ABG Base Excess -7 mEq/L (-2 to 3); ABG Chloride 105 mEq/L (98-107); ABG Glucose 181 mg/dL (60-95); ABG HCO3 20 mEq/L (21-27); ABG Oxygen Saturation 99 % (95-98); ABG PCO2 44 mmHg (35-45); ABG PH 7.25 pH Units (7.32-7.45); ABG PO2 178 mmHg (85-104); ABG TCO2 21 mEq/L (20-26)
[2022-01-07 07:42] LABS: Basophils % 0.1 %; Eosinophils % 0.2 %; Hematocrit 25.9 % (37.5-50.1); Hemoglobin 8.5 g/dL (12.9-16.9); Immature Granulocytes % 0.5 % (0-4); Mean Corpuscular HGB Conc 32.8 g/dL (31.6-35.5); Mean Corpuscular Hemoglobin 26.9 pg (28.0-33.3); Mean Platelet Volume 11.2 fL (9.4-12.4); Monocytes % 9.5 %; Neutrophils # 8.2 K/mcL (1.6-8.9); Platelet Count 110 K/mcL (140-400); Red Blood Count 3.16 M/mcL (4.19-5.50); Red Cell Distribution Width 19.9 % (11.5-14.5); Segmented Neutrophils % 79.7 %; White Blood Count 10.3 K/mcL (4.3-11.1)
[2022-01-07] MEDS: Ringers Solution, Lactated 1,000 ML ONE ×2 (07:43→07:49)
[2022-01-07] MEDS: Insulin LISPRO 300 UNITS/3 ML VIAL SUBQ SCH ×5 (07:44→19:59)
[2022-01-07 07:45] LABS: VBG Ionized Calcium 1.17 mmol/L (1.15-1.35)
[2022-01-07 07:49] LABS: INR 1.3; Prothrombin Time 14.4 Seconds (9.4-12.1)
[2022-01-07] MEDS: Budesonide/Formoterol 160/4.5 1 PUFF INH IH SCH ×2 (07:51→20:05)
[2022-01-07 08:09] LABS: Alanine Aminotransferase 3 Units/L (7-52); Albumin 3.1 g/dL (3.5-5.7); Albumin/Globulin Ratio 1.4 (1.1-2.2); Alkaline Phosphatase 42 Units/L (34-104); Aspartate Amino Transferase 17 Units/L (13-39); BUN/Creatinine Ratio 35 (6-26); Bilirubin,Total 0.5 mg/dL (0.3-1.0); Blood Urea Nitrogen 20 mg/dL (8-23); Calcium 8.2 mg/dL (8.6-10.3); Carbon Dioxide 29 mEq/L (23-29); Chloride 99 mEq/L (98-107); Globulin 2.2 g/dL (2.4-3.5); Glucose 128 mg/dL (70-105); Osmolality,Calculated 280 (280-300); Potassium 3.8 mEq/L (3.5-5.1); Sodium 133 mEq/L (136-145); Total Protein 5.3 g/dL (6.4-8.9); Troponin I 0.94 ng/mL (< 0.04); eGFR For African Americans > 60 (> 60); eGFR For Non-African Americans > 60 (> 60)
[2022-01-07] MEDS: Folic Acid 1 MG TABLET PO SCH (09:51)
[2022-01-07] MEDS: Famotidine 20 MG TABLET PO SCH ×2 (09:51→19:58)
[2022-01-07] MEDS: predniSONE 20 MG TABLET PO SCH (09:51)
[2022-01-07] MEDS: Vitamin B Complex/Vit C/Vit E 1 EACH TABLET PO SCH (09:51)
[2022-01-07] MEDS: Furosemide 40 MG TABLET PO SCH (09:51)
[2022-01-07] MEDS: Pregabalin 75 MG CAPSULE PO SCH ×2 (09:51→19:58)
[2022-01-07] MEDS: Aspirin Enteric Coated 81 MG Tablet PO SCH (09:52)
[2022-01-07] MEDS: Nicotine 14 MG PATCH.TD24 TD SCH (09:52)
[2022-01-07] MEDS: Thiamine (B-1) 100 MG TABLET PO SCH (09:52)
[2022-01-07] MEDS: Amiodarone Premix 360 MG/200 ML BAG IVC SCH (13:10)
[2022-01-07] MEDS: traZODone 50 MG TABLET PO SCH (19:58)
[2022-01-07] MEDS: Melatonin 3 MG TABLET PO SCH (19:59)
[2022-01-08] MEDS: Amiodarone Premix 360 MG/200 ML BAG IVC SCH ×3 (01:30→19:55)
[2022-01-08] MEDS: Ipratropium 1 PUFF INHALER IH SCH ×6 (03:25→23:27)
[2022-01-08 03:43] LABS: Basophils % 0.1 %; Eosinophils % 0.2 %; Hematocrit 26.7 % (37.5-50.1); Hemoglobin 8.6 g/dL (12.9-16.9); Immature Granulocytes % 0.5 % (0-4); Lymphocytes # 1.6 K/mcL (0.6-4.6); Lymphocytes % 14.5 %; Mean Corpuscular HGB Conc 32.2 g/dL (31.6-35.5); Mean Corpuscular Hemoglobin 26.5 pg (28.0-33.3); Mean Corpuscular Volume 82.4 fL (83.0-100.0); Mean Platelet Volume 11.9 fL (9.4-12.4); Monocytes # 0.9 K/mcL (0.0-1.3); Monocytes % 8.1 %; Neutrophils # 8.3 K/mcL (1.6-8.9); Platelet Count 137 K/mcL (140-400); Red Blood Count 3.24 M/mcL (4.19-5.50); Red Cell Distribution Width 20.4 % (11.5-14.5); Segmented Neutrophils % 76.6 %; White Blood Count 10.8 K/mcL (4.3-11.1)
[2022-01-08 04:03] LABS: BUN/Creatinine Ratio 34 (6-26); Blood Urea Nitrogen 20 mg/dL (8-23); Calcium 8.5 mg/dL (8.6-10.3); Carbon Dioxide 30 mEq/L (23-29); Chloride 97 mEq/L (98-107); Glucose 114 mg/dL (70-105); Magnesium 1.6 mg/dL (1.6-2.6); Osmolality,Calculated 281 (280-300); Potassium 3.6 mEq/L (3.5-5.1); Sodium 134 mEq/L (136-145); eGFR For African Americans > 60 (> 60); eGFR For Non-African Americans > 60 (> 60)
[2022-01-08] MEDS: Vitamin B Complex/Vit C/Vit E 1 EACH TABLET PO SCH (07:41)
[2022-01-08] MEDS: Nicotine 14 MG PATCH.TD24 TD SCH (07:41)
[2022-01-08] MEDS: Pregabalin 75 MG CAPSULE PO SCH ×3 (07:41→19:54)
[2022-01-08] MEDS: Folic Acid 1 MG TABLET PO SCH (07:41)
[2022-01-08] MEDS: Aspirin Enteric Coated 81 MG Tablet PO SCH (07:42)
[2022-01-08] MEDS: Famotidine 20 MG TABLET PO SCH ×2 (07:42→19:55)
[2022-01-08] MEDS: predniSONE 20 MG TABLET PO SCH (07:42)
[2022-01-08] MEDS: Thiamine (B-1) 100 MG TABLET PO SCH (07:42)
[2022-01-08] MEDS: Insulin LISPRO 300 UNITS/3 ML VIAL SUBQ SCH ×4 (07:43→20:09)
[2022-01-08] MEDS: Budesonide/Formoterol 160/4.5 1 PUFF INH IH SCH ×2 (07:57→20:23)
[2022-01-08] MEDS: Furosemide 40 MG TABLET PO SCH (08:15)
[2022-01-08] MEDS ORDERED: *HR* Enoxaparin 40 MG/0.4 ML SYRINGE SQ ONE (09:32)
[2022-01-08] MEDS ORDERED: Naloxone 0.4 MG/ML INJ IVP PRN ×2 (14:06→14:35)
[2022-01-08] MEDS ORDERED: *HR* OxyCODONE/APAP 5/325 TABLET PO PRN (14:07)
[2022-01-08] MEDS ORDERED: Acetaminophen 325 MG TABLET PO PRN ×3 (14:07→14:35)
[2022-01-08] MEDS ORDERED: Ondansetron 4 MG/2 ML VIAL IVP PRN ×2 (14:07→14:35)
[2022-01-08] MEDS ORDERED: Melatonin 3 MG TABLET PO PRN ×2 (14:09→14:35)
[2022-01-08] MEDS ORDERED: Insulin Regular, Human 100 UNIT/ML SUBQ SCH ×2 (14:15→14:35)
[2022-01-08] MEDS ORDERED: Dextrose Gel 15 GM/37.5 ML TUBE PO PRN ×2 (14:35)
[2022-01-08] MEDS ORDERED: *HR* Dextrose 50 % in Water (Syg) 50 ML SYRINGE IVP PRN (14:35)
[2022-01-08] MEDS ORDERED: D5% in Water 1,000 ML IVC PRN (14:35)
[2022-01-08] MEDS ORDERED: Pregabalin 75 MG CAPSULE PO SCH (15:00)
[2022-01-08] MEDS ORDERED: Ipratropium 1 PUFF INHALER IH SCH (16:00)
[2022-01-08] MEDS: *HR* OxyCODONE/APAP 5/325 TABLET PO PRN (19:55)
[2022-01-08] MEDS ORDERED: Famotidine 20 MG TABLET PO SCH (21:00)
[2022-01-08] MEDS ORDERED: traZODone 50 MG TABLET PO SCH (21:00)
[2022-01-08] MEDS ORDERED: Budesonide/Formoterol 160/4.5 1 PUFF INH IH SCH (22:00)
[2022-01-08] MEDS: traZODone 50 MG TABLET PO SCH (22:22)
[2022-01-09] MEDS: Ipratropium 1 PUFF INHALER IH SCH ×6 (03:57→23:14)
[2022-01-09 05:36] LABS: Hematocrit 25.6 % (37.5-50.1); Hemoglobin 8.3 g/dL (12.9-16.9); Mean Corpuscular HGB Conc 32.4 g/dL (31.6-35.5); Mean Corpuscular Hemoglobin 26.6 pg (28.0-33.3); Mean Corpuscular Volume 82.1 fL (83.0-100.0); Mean Platelet Volume 11.8 fL (9.4-12.4); Platelet Count 161 K/mcL (140-400); Red Blood Count 3.12 M/mcL (4.19-5.50); Red Cell Distribution Width 20.4 % (11.5-14.5); White Blood Count 9.6 K/mcL (4.3-11.1)
[2022-01-09] MEDS: *HR* Enoxaparin 40 MG/0.4 ML SYRINGE SQ SCH (05:54)
[2022-01-09] MEDS: Amiodarone Premix 360 MG/200 ML BAG IVC SCH (05:55)
[2022-01-09 05:56] LABS: BUN/Creatinine Ratio 35 (6-26); Blood Urea Nitrogen 22 mg/dL (8-23); Calcium 7.9 mg/dL (8.6-10.3); Carbon Dioxide 29 mEq/L (23-29); Chloride 97 mEq/L (98-107); Glucose 137 mg/dL (70-105); Magnesium 1.7 mg/dL (1.6-2.6); Osmolality,Calculated 281 (280-300); Potassium 3.7 mEq/L (3.5-5.1); Sodium 133 mEq/L (136-145); eGFR For African Americans > 60 (> 60); eGFR For Non-African Americans > 60 (> 60)
[2022-01-09] MEDS ORDERED: *HR* Enoxaparin 40 MG/0.4 ML SYRINGE SQ SCH ×3 (06:00→10:00)
[2022-01-09] MEDS: Budesonide/Formoterol 160/4.5 1 PUFF INH IH SCH ×2 (07:42→20:09)
[2022-01-09] MEDS: Nicotine 14 MG PATCH.TD24 TD SCH ×2 (08:49→09:10)
[2022-01-09] MEDS: Pregabalin 75 MG CAPSULE PO SCH ×3 (08:49→21:59)
[2022-01-09] MEDS: Furosemide 40 MG TABLET PO SCH (08:50)
[2022-01-09] MEDS: Vitamin B Complex/Vit C/Vit E 1 EACH TABLET PO SCH (08:50)
[2022-01-09] MEDS: Folic Acid 1 MG TABLET PO SCH (08:51)
[2022-01-09] MEDS: Thiamine (B-1) 100 MG TABLET PO SCH (08:51)
[2022-01-09] MEDS: Famotidine 20 MG TABLET PO SCH ×2 (08:52→21:41)
[2022-01-09] MEDS: Aspirin Enteric Coated 81 MG Tablet PO SCH (08:53)
[2022-01-09] MEDS: Insulin LISPRO 300 UNITS/3 ML VIAL SUBQ SCH ×4 (08:54→21:42)
[2022-01-09] MEDS ORDERED: Folic Acid 1 MG TABLET PO SCH (09:00)
[2022-01-09] MEDS ORDERED: Aspirin Enteric Coated 81 MG Tablet PO SCH (09:00)
[2022-01-09] MEDS ORDERED: Thiamine (B-1) 100 MG TABLET PO SCH (09:00)
[2022-01-09] MEDS ORDERED: Furosemide 40 MG TABLET PO SCH (09:00)
[2022-01-09] MEDS ORDERED: Nicotine 14 MG PATCH.TD24 TD SCH (09:00)
[2022-01-09] MEDS ORDERED: Vitamin B Complex/Vit C/Vit E 1 EACH TABLET PO SCH (09:00)
[2022-01-09] MEDS ORDERED: predniSONE 20 MG TABLET PO SCH ×2 (09:00)
[2022-01-09] MEDS: *HR* Amiodarone 200 MG TABLET PO SCH ×2 (09:19→21:41)
[2022-01-09] MEDS: traZODone 50 MG TABLET PO SCH (21:41)
[2022-01-10 03:04] LABS: Hematocrit 26.8 % (37.5-50.1); Hemoglobin 8.7 g/dL (12.9-16.9); Mean Corpuscular HGB Conc 32.5 g/dL (31.6-35.5); Mean Corpuscular Hemoglobin 26.4 pg (28.0-33.3); Mean Corpuscular Volume 81.5 fL (83.0-100.0); Platelet Count 190 K/mcL (140-400); Red Blood Count 3.29 M/mcL (4.19-5.50); Red Cell Distribution Width 20.2 % (11.5-14.5); White Blood Count 11.3 K/mcL (4.3-11.1)
[2022-01-10 03:27] LABS: BUN/Creatinine Ratio 33 (6-26); Blood Urea Nitrogen 20 mg/dL (8-23); Calcium 8.4 mg/dL (8.6-10.3); Carbon Dioxide 27 mEq/L (23-29); Chloride 94 mEq/L (98-107); Glucose 116 mg/dL (70-105); Magnesium 1.8 mg/dL (1.6-2.6); Osmolality,Calculated 276 (280-300); Potassium 3.7 mEq/L (3.5-5.1); Sodium 131 mEq/L (136-145); eGFR For African Americans > 60 (> 60); eGFR For Non-African Americans > 60 (> 60)
[2022-01-10] MEDS: Ipratropium 1 PUFF INHALER IH SCH ×5 (04:12→20:13)
[2022-01-10] MEDS: *HR* Enoxaparin 40 MG/0.4 ML SYRINGE SQ SCH (05:46)
[2022-01-10] MEDS: Budesonide/Formoterol 160/4.5 1 PUFF INH IH SCH ×2 (07:19→20:13)
[2022-01-10] MEDS ORDERED: Calcium Gluconate 1gm/50mL 1 GM/50 ML BAG IVPB ONE (08:05)
[2022-01-10] MEDS: Insulin LISPRO 300 UNITS/3 ML VIAL SUBQ SCH ×4 (08:25→20:33)
[2022-01-10] MEDS: Thiamine (B-1) 100 MG TABLET PO SCH (08:42)
[2022-01-10] MEDS: Pregabalin 75 MG CAPSULE PO SCH ×3 (08:43→20:32)
[2022-01-10] MEDS: Aspirin Enteric Coated 81 MG Tablet PO SCH (08:43)
[2022-01-10] MEDS: Vitamin B Complex/Vit C/Vit E 1 EACH TABLET PO SCH (08:44)
[2022-01-10] MEDS: Furosemide 40 MG TABLET PO SCH (08:44)
[2022-01-10] MEDS: Famotidine 20 MG TABLET PO SCH ×2 (08:44→20:33)
[2022-01-10] MEDS: *HR* Amiodarone 200 MG TABLET PO SCH ×2 (08:44→20:32)
[2022-01-10] MEDS: Folic Acid 1 MG TABLET PO SCH (08:44)
[2022-01-10] MEDS: Nicotine 14 MG PATCH.TD24 TD SCH (08:47)
[2022-01-10] MEDS: traZODone 50 MG TABLET PO SCH (20:32)
[2022-01-11] MEDS: Ipratropium 1 PUFF INHALER IH SCH ×5 (00:03→15:57)
[2022-01-11 01:55] LABS: Hematocrit 26.8 % (37.5-50.1); Hemoglobin 8.8 g/dL (12.9-16.9); Mean Corpuscular HGB Conc 32.8 g/dL (31.6-35.5); Mean Corpuscular Volume 82.2 fL (83.0-100.0); Mean Platelet Volume 10.9 fL (9.4-12.4); Platelet Count 237 K/mcL (140-400); Red Blood Count 3.26 M/mcL (4.19-5.50); Red Cell Distribution Width 20.1 % (11.5-14.5); White Blood Count 13.1 K/mcL (4.3-11.1)
[2022-01-11 01:58] LABS: BUN/Creatinine Ratio 23 (6-26); Blood Urea Nitrogen 15 mg/dL (8-23); Calcium 8.4 mg/dL (8.6-10.3); Carbon Dioxide 28 mEq/L (23-29); Chloride 95 mEq/L (98-107); Glucose 128 mg/dL (70-105); Magnesium 1.6 mg/dL (1.6-2.6); Osmolality,Calculated 272 (280-300); Potassium 4.1 mEq/L (3.5-5.1); Sodium 130 mEq/L (136-145); eGFR For African Americans > 60 (> 60); eGFR For Non-African Americans > 60 (> 60)
[2022-01-11] MEDS: *HR* Enoxaparin 40 MG/0.4 ML SYRINGE SQ SCH (05:39)
[2022-01-11 07:13] VITALS: TEMP 97.9
[2022-01-11] MEDS: Budesonide/Formoterol 160/4.5 1 PUFF INH IH SCH (07:39)
[2022-01-11] MEDS: Nicotine 14 MG PATCH.TD24 TD SCH (08:26)
[2022-01-11] MEDS: Insulin LISPRO 300 UNITS/3 ML VIAL SUBQ SCH ×3 (08:26→16:53)
[2022-01-11] MEDS: Furosemide 40 MG TABLET PO SCH (08:27)
[2022-01-11] MEDS: Thiamine (B-1) 100 MG TABLET PO SCH (08:27)
[2022-01-11] MEDS: Vitamin B Complex/Vit C/Vit E 1 EACH TABLET PO SCH (08:27)
[2022-01-11] MEDS: Pregabalin 75 MG CAPSULE PO SCH ×2 (08:27→15:30)
[2022-01-11] MEDS: Aspirin Enteric Coated 81 MG Tablet PO SCH (08:28)
[2022-01-11] MEDS: Famotidine 20 MG TABLET PO SCH (08:28)
[2022-01-11] MEDS: *HR* Amiodarone 200 MG TABLET PO SCH (08:28)
[2022-01-11] MEDS: Folic Acid 1 MG TABLET PO SCH (08:28)
[2022-01-11] MEDS: *HR* OxyCODONE/APAP 5/325 TABLET PO PRN (15:30)
[2022-01-11 16:35] VITALS: BP 137/65; PULSE 72; O2SAT 94
[2022-01-11 16:37] LABS: Influenza A PCR Negative (Negative); Influenza B PCR Negative (Negative); Resp. Syncytial Virus PCR Negative (Negative); SARS-CoV-2 by PCR (In House) Negative (Negative)
[2022-01-12] MEDS ORDERED: *HR* Amiodarone 200 MG TABLET PO SCH (09:00)
== END 2022-01-11 18:03 | DRG 233 ==
LOC: EMEROOARM 12:31 → 3BNU 12:31 → SUATTDRO 15:33 → 3BNU 16:37 → SUATTDRO 01-02 12:31 → ICNU 01-03 16:15 → 2NNU 01-08 15:55
PROVIDERS: ADMIT Pharmacist; ATTEND Student in an Organized Health Care Education/Training Program

== ENCOUNTER 2022-01-13 23:37 | Inpatient (IN) ==
[2022-01-14] MEDS ORDERED: Naloxone 0.4 MG/ML INJ IVP PRN (02:24)
[2022-01-14] MEDS ORDERED: Ondansetron 4 MG/2 ML VIAL IVP PRN (02:24)
[2022-01-14] MEDS ORDERED: Acetaminophen 325 MG TABLET PO PRN ×2 (02:24→13:19)
[2022-01-14] MEDS ORDERED: Perflutren Lipid Microsphere 1.3 ML in 0.9 % Sodium Chloride 8.7 ML IVP PRN (02:32)
[2022-01-14 03:25] LABS: Basophils % 0.2 %; Eosinophils # 0.1 K/mcL (0.0-0.6); Eosinophils % 0.8 %; Hematocrit 25.8 % (37.5-50.1); Hemoglobin 8.1 g/dL (12.9-16.9); Immature Granulocytes % 0.7 % (0-4); Lymphocytes # 1.2 K/mcL (0.6-4.6); Lymphocytes % 8.4 %; Mean Corpuscular HGB Conc 31.4 g/dL (31.6-35.5); Mean Corpuscular Hemoglobin 26.5 pg (28.0-33.3); Mean Corpuscular Volume 84.3 fL (83.0-100.0); Mean Platelet Volume 9.8 fL (9.4-12.4); Monocytes # 0.7 K/mcL (0.0-1.3); Monocytes % 4.7 %; Neutrophils # 11.9 K/mcL (1.6-8.9); Platelet Count 325 K/mcL (140-400); Red Blood Count 3.06 M/mcL (4.19-5.50); Red Cell Distribution Width 20.2 % (11.5-14.5); Segmented Neutrophils % 85.2 %
[2022-01-14 03:35] LABS: INR 1.3; Prothrombin Time 14.6 Seconds (9.4-12.1)
[2022-01-14 03:37] LABS: Activated Partial Thrombo Time 24.3 Seconds (26.0-36.0)
[2022-01-14 03:44] LABS: Alanine Aminotransferase 9 Units/L (7-52); Albumin 3.3 g/dL (3.5-5.7); Albumin/Globulin Ratio 1.2 (1.1-2.2); Alkaline Phosphatase 55 Units/L (34-104); Aspartate Amino Transferase 11 Units/L (13-39); BUN/Creatinine Ratio 21 (6-26); Bilirubin,Direct 0.1 mg/dL (0.0-0.2); Bilirubin,Indirect 0.4 mg/dL (0.0-1.0); Bilirubin,Total 0.5 mg/dL (0.3-1.0); Blood Urea Nitrogen 15 mg/dL (8-23); Calcium 8.1 mg/dL (8.6-10.3); Carbon Dioxide 25 mEq/L (23-29); Chloride 102 mEq/L (98-107); Globulin 2.8 g/dL (2.4-3.5); Glucose 103 mg/dL (70-105); Osmolality,Calculated 281 (280-300); Sodium 135 mEq/L (136-145); Total Protein 6.1 g/dL (6.4-8.9); eGFR For African Americans > 60 (> 60); eGFR For Non-African Americans > 60 (> 60)
[2022-01-14 03:46] LABS: Magnesium 1.7 mg/dL (1.6-2.6); Phosphorous 3.7 mg/dL (2.7-4.5); Troponin I 0.12 ng/mL (< 0.04)
[2022-01-14 03:56] LABS: Thyroid Stimulating Hormone 3.109 mcIU/mL (0.340-5.600)
[2022-01-14] MEDS ORDERED: Vancomycin 1,500 MG/265 ML IV.SOLN IVPB ONE (05:00)
[2022-01-14 05:55] LABS: Bilirubin,Urine Negative (Negative); Blood,Urine Negative (Negative); Clarity,Urine Clear (Clear); Color,Urine Light-Yellow (Yellow); Glucose,Urine (UA) Normal (Normal); Ketones,Urine Negative (Negative); Leukocyte Esterase,Urine Negative (Negative); Nitrite,Urine Negative (Negative); PH,Urine 6.5 pH Units (5.0-8.0); Protein,Urine Negative (Neg-Trace); Specific Gravity,Urine 1.021 (1.010-1.025); Urobilinogen,Urine Normal (Normal)
[2022-01-14 07:10] LABS: Adenovirus Not Detected (Not Detect); Bordetella Pertussis Not Detected (Not Detect); Chlamydophila pneumoniae Not Detected (Not Detect); Coronavirus 229E Not Detected (Not Detect); Coronavirus HKU1 Not Detected (Not Detect); Coronavirus NL63 Not Detected (Not Detect); Coronavirus OC43 Not Detected (Not Detect); Human Metapneumovirus Not Detected (Not Detect); Human Rhinovirus/Enterovirus Not Detected (Not Detect); Influenza A Subtype 2009 H1 Not Detected (Not Detect); Influenza B Not Detected (Not Detect); Mycoplasma pneumoniae Not Detected (Not Detect); Parainfluenza Virus 1 Not Detected (Not Detect); Parainfluenza Virus 2 Not Detected (Not Detect); Parainfluenza Virus 3 Not Detected (Not Detect); Parainfluenza Virus 4 Not Detected (Not Detect); Respiratory Syncytial Virus Not Detected (Not Detect); SARS-CoV-2 Not Detected (Not Detect)
[2022-01-14] MEDS ORDERED: Cefepime HCl 2,000 MG in 0.9 % Sodium Chloride Mini Bag 100 ML IVPB SCH (08:00)
[2022-01-14] MEDS: Furosemide 20 MG/2 ML VIAL IVP SCH ×2 (08:11→20:10)
[2022-01-14] MEDS ORDERED: Isovue-370 500 ML BOTTLE IVP ONE (09:39)
[2022-01-14] MEDS ORDERED: Hydrocortisone Rectal 2.5% CRM 28 GM TUBE RC PRN (13:19)
[2022-01-14] MEDS ORDERED: polyethylene glycoL 3350 17 GM POWD.PACK PO PRN (13:19)
[2022-01-14] MEDS ORDERED: *HR* OxyCODONE/APAP 5/325 TABLET PO PRN (13:19)
[2022-01-14] MEDS ORDERED: Furosemide 40 MG TABLET PO SCH (13:30)
[2022-01-14] MEDS: lisinopriL 10 MG TABLET PO SCH (14:30)
[2022-01-14] MEDS: Aspirin Enteric Coated 81 MG Tablet PO SCH (14:30)
[2022-01-14] MEDS: *HR* Amiodarone 200 MG TABLET PO SCH ×2 (14:30→20:11)
[2022-01-14] MEDS: Folic Acid 1 MG TABLET PO SCH (14:30)
[2022-01-14] MEDS: Pregabalin 75 MG CAPSULE PO SCH ×2 (14:34→20:10)
[2022-01-14] MEDS: Nicotine 14 MG PATCH.TD24 TD SCH (14:35)
[2022-01-14] MEDS: Budesonide/Formoterol 160/4.5 1 PUFF INH IH SCH ×2 (15:27→20:31)
[2022-01-14] MEDS ORDERED: Vancomycin 1,250 MG/262.5 ML IV.SOLN IVPB SCH (17:00)
[2022-01-14] MEDS: Melatonin 3 MG TABLET PO SCH (20:10)
[2022-01-15 01:52] LABS: Basophils % 0.2 %; Eosinophils # 0.2 K/mcL (0.0-0.6); Eosinophils % 1.1 %; Hemoglobin 7.8 g/dL (12.9-16.9); Immature Granulocytes % 0.8 % (0-4); Lymphocytes # 1.5 K/mcL (0.6-4.6); Lymphocytes % 9.3 %; Mean Corpuscular HGB Conc 31.2 g/dL (31.6-35.5); Mean Corpuscular Hemoglobin 26.4 pg (28.0-33.3); Mean Corpuscular Volume 84.5 fL (83.0-100.0); Mean Platelet Volume 9.8 fL (9.4-12.4); Monocytes # 1.1 K/mcL (0.0-1.3); Monocytes % 6.4 %; Neutrophils # 13.6 K/mcL (1.6-8.9); Platelet Count 331 K/mcL (140-400); Red Blood Count 2.96 M/mcL (4.19-5.50); Segmented Neutrophils % 82.2 %; White Blood Count 16.5 K/mcL (4.3-11.1)
[2022-01-15 02:41] LABS: BUN/Creatinine Ratio 19 (6-26); Blood Urea Nitrogen 14 mg/dL (8-23); Carbon Dioxide 23 mEq/L (23-29); Chloride 100 mEq/L (98-107); Ferritin 146 ng/mL (20-250); Glucose 125 mg/dL (70-105); Iron < 10 mcg/dL (65-175); Osmolality,Calculated 272 (280-300); Sodium 130 mEq/L (136-145); Transferrin 218 mg/dL (203-362); eGFR For African Americans > 60 (> 60); eGFR For Non-African Americans > 60 (> 60)
[2022-01-15] MEDS: Ipratropium/Albuterol Neb 3 ML IH PRN ×2 (04:23→19:47)
[2022-01-15] MEDS: Folic Acid 1 MG TABLET PO SCH (08:08)
[2022-01-15] MEDS: Aspirin Enteric Coated 81 MG Tablet PO SCH (08:08)
[2022-01-15] MEDS: Pregabalin 75 MG CAPSULE PO SCH ×3 (08:08→21:26)
[2022-01-15] MEDS: lisinopriL 10 MG TABLET PO SCH (08:08)
[2022-01-15] MEDS: Furosemide 20 MG/2 ML VIAL IVP SCH (08:08)
[2022-01-15] MEDS: *HR* Amiodarone 200 MG TABLET PO SCH ×2 (08:09→19:51)
[2022-01-15] MEDS: Nicotine 14 MG PATCH.TD24 TD SCH (08:09)
[2022-01-15] MEDS ORDERED: Cyanocobalamin (B-12) 1,000 MCG/ML VIAL IM ONE (09:42)
[2022-01-15] MEDS ORDERED: Furosemide 20 MG/2 ML VIAL IVP ONE (09:45)
[2022-01-15] MEDS: Budesonide/Formoterol 160/4.5 1 PUFF INH IH SCH ×2 (10:44→19:47)
[2022-01-15 11:46] LABS: VBG HCO3 24 mEq/L (21-27); VBG PCO2 50 mmHg (41-51); VBG PH 7.28 pH Units (7.32-7.42); VBG PO2 59 mmHg (25-50)
[2022-01-15] MEDS ORDERED: Azithromycin 500 MG in 0.9 % Sodium Chloride 250 ML IVPB SCH (16:00)
[2022-01-15] MEDS ORDERED: cefTRIAXone 2,000 MG in 0.9 % Sodium Chloride 20 ML IVP SCH (16:00)
[2022-01-15] MEDS: Cyanocobalamin (B-12) 1,000 MCG TABLET PO SCH (17:03)
[2022-01-15] MEDS: Cefepime HCl 2,000 MG in 0.9 % Sodium Chloride 10 ML IVP SCH ×2 (17:03→23:50)
[2022-01-15] MEDS: Furosemide 40 MG/4 ML VIAL IVP SCH (17:03)
[2022-01-15] MEDS: traZODone 50 MG TABLET PO SCH (19:52)
[2022-01-15] MEDS: Melatonin 3 MG TABLET PO SCH (19:52)
[2022-01-16 02:05] LABS: Basophils % 0.1 %; Eosinophils # 0.1 K/mcL (0.0-0.6); Eosinophils % 0.9 %; Hematocrit 24.7 % (37.5-50.1); Hemoglobin 7.8 g/dL (12.9-16.9); Immature Granulocytes % 0.8 % (0-4); Lymphocytes # 1.2 K/mcL (0.6-4.6); Lymphocytes % 8.3 %; Mean Corpuscular HGB Conc 31.6 g/dL (31.6-35.5); Mean Corpuscular Hemoglobin 26.5 pg (28.0-33.3); Mean Platelet Volume 10.2 fL (9.4-12.4); Monocytes # 0.7 K/mcL (0.0-1.3); Monocytes % 5.3 %; Neutrophils # 11.8 K/mcL (1.6-8.9); Platelet Count 321 K/mcL (140-400); Red Blood Count 2.94 M/mcL (4.19-5.50); Red Cell Distribution Width 19.7 % (11.5-14.5); Segmented Neutrophils % 84.6 %; White Blood Count 13.9 K/mcL (4.3-11.1)
[2022-01-16 02:13] LABS: INR 1.3; Prothrombin Time 14.2 Seconds (9.4-12.1)
[2022-01-16 02:23] LABS: BUN/Creatinine Ratio 19 (6-26); Blood Urea Nitrogen 13 mg/dL (8-23); Calcium 8.3 mg/dL (8.6-10.3); Carbon Dioxide 26 mEq/L (23-29); Chloride 99 mEq/L (98-107); Glucose 134 mg/dL (70-105); Osmolality,Calculated 274 (280-300); Potassium 4.5 mEq/L (3.5-5.1); Sodium 131 mEq/L (136-145); eGFR For African Americans > 60 (> 60); eGFR For Non-African Americans > 60 (> 60)
[2022-01-16] MEDS: Budesonide/Formoterol 160/4.5 1 PUFF INH IH SCH ×2 (08:55→20:23)
[2022-01-16] MEDS: Pregabalin 75 MG CAPSULE PO SCH ×3 (08:56→21:36)
[2022-01-16] MEDS: *HR* Amiodarone 200 MG TABLET PO SCH ×2 (08:56→21:37)
[2022-01-16] MEDS: Folic Acid 1 MG TABLET PO SCH (08:56)
[2022-01-16] MEDS: lisinopriL 10 MG TABLET PO SCH (08:56)
[2022-01-16] MEDS: Aspirin Enteric Coated 81 MG Tablet PO SCH (08:57)
[2022-01-16] MEDS: Nicotine 14 MG PATCH.TD24 TD SCH (08:57)
[2022-01-16] MEDS: Furosemide 40 MG/4 ML VIAL IVP SCH (08:57)
[2022-01-16] MEDS: Cefepime HCl 2,000 MG in 0.9 % Sodium Chloride 10 ML IVP SCH (08:57)
[2022-01-16] MEDS: Cyanocobalamin (B-12) 1,000 MCG TABLET PO SCH (08:57)
[2022-01-16] MEDS: *HR* LORazepam 0.5 MG TABLET PO PRN ×2 (11:25→16:04)
[2022-01-16] MEDS: Iron Sucrose Complex 250 MG in 0.9 % Sodium Chloride 250 ML IVPB SCH (11:25)
[2022-01-16] MEDS: Furosemide 40 MG TABLET PO SCH (16:04)
[2022-01-16] MEDS: Cefdinir 300 MG CAPSULE PO SCH (16:04)
[2022-01-16] MEDS: traZODone 50 MG TABLET PO SCH (21:36)
[2022-01-16] MEDS: Melatonin 3 MG TABLET PO SCH (21:36)
[2022-01-17] MEDS: Budesonide/Formoterol 160/4.5 1 PUFF INH IH SCH (07:46)
[2022-01-17] MEDS: Cyanocobalamin (B-12) 1,000 MCG TABLET PO SCH (09:38)
[2022-01-17] MEDS: Pregabalin 75 MG CAPSULE PO SCH (09:38)
[2022-01-17] MEDS: lisinopriL 10 MG TABLET PO SCH (09:38)
[2022-01-17] MEDS: Folic Acid 1 MG TABLET PO SCH (09:38)
[2022-01-17] MEDS: Aspirin Enteric Coated 81 MG Tablet PO SCH (09:38)
[2022-01-17] MEDS: Cefdinir 300 MG CAPSULE PO SCH (09:38)
[2022-01-17] MEDS: *HR* Amiodarone 200 MG TABLET PO SCH (09:41)
[2022-01-17] MEDS: Furosemide 40 MG TABLET PO SCH (09:41)
[2022-01-17] MEDS: Nicotine 14 MG PATCH.TD24 TD SCH (09:41)
[2022-01-17] MEDS: Iron Sucrose Complex 250 MG in 0.9 % Sodium Chloride 250 ML IVPB SCH (09:41)
[2022-01-17 11:32] VITALS: TEMP 97.5
[2022-01-17 11:52] LABS: C-Reactive Protein 66 mg/L (Less than 10)
[2022-01-17 13:36] LABS: Influenza A PCR Negative (Negative); Influenza B PCR Negative (Negative); Resp. Syncytial Virus PCR Negative (Negative)
[2022-01-17 13:50] LABS: SARS-CoV-2 by PCR (In House) Negative (Negative)
[2022-01-17 14:48] VITALS: BP 141/51; PULSE 67; O2SAT 97
[2022-01-17] MEDS ORDERED: Cefdinir 300 MG CAPSULE PO SCH (21:00)
== END 2022-01-17 14:47 | DRG 291 ==
LOC: 2NNU → SUATTDRO 01-14 02:24
PROVIDERS: ADMIT Internal Medicine; ATTEND Internal Medicine